=== PATIENT | female | born 1955 | race Caucasian/White ===

== ENCOUNTER → 2017-10-14 | Outpatient (CLI) | payer BC, OTHER ==
[~2017-10-14] MED LIST: DIPH25TA24 PO; IBUP-103 PO; LISI20TA3 PO; LORA-741 PO; MULTTAB58 PO; ROPI0.5T15 PO
[2017-10-14 12:28] LABS: BASO % 0.5 %; BASO ABS # 0.05 K/uL (0-0.2); COMPLETE YES; HEMATOCRIT 42.1 % (37-47); IG% 0.2 %; LYMPH % 21.9 %; LYMPH ABS # 2.12 K/uL (1.2-3.4); MEAN CELL VOLUME 96.3 fL (80-100); MEAN CORPUSCULAR HEMOGLOBIN 32.3 pg (25-34); MEAN CORPUSCULAR HGB CONC 33.5 g/dl (32-36); MEAN PLATELET VOLUME 10.2 fL (7.4-10.4); MONO % 5.6 %; NEUT % 68.8 %; PLATELET COUNT 259 K/uL (130-400); RED BLOOD COUNT 4.37 M/uL (4.2-5.4); WHITE BLOOD COUNT 9.68 K/uL (4.8-10.8)
[2017-10-14 12:37] LABS: ALT/SGPT 39 U/L (12-78); AST/SGOT 20 U/L (15-37); BLOOD UREA NITROGEN 13 mg/dl (7-18); BUN/CREATININE RATIO 15.7 (10-20); CALCIUM 8.7 mg/dl (8.5-10.1); CARBON DIOXIDE 26 mmol/L (21-32); CHLORIDE 110 mmol/L (98-107); GLUCOSE 96 mg/dl (70-99); POTASSIUM 4.2 mmol/L (3.5-5.1); SODIUM 140 mmol/L (136-145)
[2017-10-14 12:48] LABS: ALB/GLOB RATIO 1.2 (0.9-2); ALKALINE PHOSPHATASE 100 U/L (45-117); CHOLESTEROL 166 mg/dl (0-200); CHOLESTEROL/HDL RATIO 3.5; HDL CHOLESTEROL 47 mg/dl; LDL CHOLESTEROL CALCULATED 84 mg/dl; TRIGLYCERIDES 177 mg/dl (0-150); VERY LOW DENSITY LIPOPROT CALC 35 mg/dl
== END | disposition home or self-care (01) ==
LOC: C.LABBFT 08:59
PROVIDERS: ATTEND Internal Medicine
DX: M34.1 CR(E)ST syndrome (principal); G25.81 Restless legs syndrome; Z13.6 Encounter for screening for cardiovascular disorders

== ENCOUNTER 2021-01-29 09:17 | Inpatient (IN) ==
--- NOTE | 2021-01-27 08:32 | Anesthesiology Consultation ---
Date of Service January 27, 2021 Assessment & Plan (1) Encounter for pre-operative examination: Chart Review Chart Review: Acceptable Risk for Surgery (pending Covid testing results ) and Patient NOT seen in Pre Admission Testing Per nursing assessment 01/23/21, patient denies any recent travel. No known Covid positive contacts or Covid related symptoms. No known Covid infection in the past 90 days. Per surgeon's office, patient will be getting Covid testing done 01/27/21= will await results. Seen by manager laboratory 12/03/2020 = seen for follow-up on rheumatoid arthritis and low back pain. Patient feels RA is generally okay. Biggest complaint is low back painhas been following with spine surgeon. Arthritis and scleroderma symptoms well controlled on methotrexate, Humira, Plaquenil. Patient scheduled for back surgery in the near future. 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 Surgical intervention anticipated for lumbar surgery on Tuesday. Follow-up in 3 months. Seen by PCP 12/05/2019= patient with severe lumbar back pain and right leg pain from lumbar spinal stenosis. Clinically stable. Reviewed preop labs, chest x- ray, EKG and echocardiogram which are stable and acceptable. Vitals are normal. " She is medically optimized and acceptable risk for the scheduled lumbar surgery." History Surgery Operation Date: 01/29/21 12:25 Proposed Procedures p L2-L5 Decompression and Fusion, Spinal Cord Monitoring - Arnold Roger, Height/Weight Height: 5 ft 2 in Weight: 53.07 kg Allergies Allergy/AdvReac Type Severity Reaction Status Date / Time gabapentin Allergy Unknown Feet Verified 01/23/21 10:48 swelling (with higher doses) grass pollen Allergy Unknown Hay fever Verified 01/23/21 10:48 mold Allergy Unknown Hay fever Verified 01/23/21 10:48 spironolactone Allergy Unknown Feet Verified 01/23/21 10:48 swelling Penicillins AdvReac Unknown Yeast Verified 01/23/21 10:48 infection Medications Home Medications Medication Instructions Recorded Confirmed Last Taken methotrexate sodium 10 mg PO WK 10/16/18 01/23/21 Unknown nifedipine 90 mg PO QAM 10/16/18 01/23/21 Unknown adalimumab 40 mg/0.4 mL 40 mg SQ Q14D ea 05/03/19 01/23/21 Unknown subcutaneous syringe kit calcium carbonate 600 mg calcium 600 mg PO QAM tab 05/03/19 01/23/21 Unknown (1,500 mg) tablet levocetirizine 5 mg tablet 5 mg PO HS 05/03/19 01/23/21 Unknown magnesium 250 mg tablet 250 mg PO BID tab 05/03/19 01/23/21 Unknown ascorbic acid (vitamin C) 1,000 mg 1 gm PO QAM tab 08/11/19 01/23/21 Unknown tablet folic acid 1 mg tablet 1 mg PO QAM tab 08/11/19 01/23/21 Unknown vitamin E succinate 400 unit tablet 400 units PO QAM tab 08/11/19 01/23/21 Unknown hydroxychloroquine 200 mg tablet 200 mg PO HS tab 12/13/19 01/23/21 Unknown albuterol sulfate 90 mcg/actuation 2 puffs INH Q6H PRN #8.5 gm 03/03/20 01/23/21 Unknown aerosol inhaler potassium chloride 10 mEq 10 meq PO QAM 03/28/20 01/23/21 Unknown capsule,extended release diclofenac sodium 75 mg 75 mg PO BID #60 tab 08/13/20 01/23/21 Unknown tablet,delayed release gabapentin 100 mg capsule 100 mg PO BID cap 08/26/20 01/23/21 Unknown cholecalciferol (vitamin D3) 2,000 units PO QAM 11/20/20 01/23/21 Unknown famotidine 40 mg PO HS 11/20/20 01/23/21 Unknown ferrous sulfate 325 mg PO QAM 11/20/20 01/23/21 Unknown fluoxetine 20 mg PO HS 11/20/20 01/23/21 Unknown multivitamin 1 tab PO QAM 11/20/20 01/23/21 Unknown pantoprazole [Protonix] 40 mg PO HS 11/20/20 01/23/21 Unknown lorazepam 1 mg tablet 1 mg PO BID #60 tab 12/05/20 01/23/21 Unknown ropinirole 0.25 mg tablet 0.75 mg PO DAILY 90 Days #270 tab 12/05/20 01/23/21 Unknown varenicline 0.5 mg (11)-1 mg (42) See Rx Instructions PO .COMPLEX 12/24/20 01/23/21 Unknown tablets in a dose pack PRN #53 ea hydrocodone 5 mg-acetaminophen 325 See Rx Instructions PO Q6H PRN #40 12/26/20 01/23/21 Unknown mg tablet tab varenicline 1 mg tablet 1 mg PO BID PRN #56 tab 01/26/21 Unknown Past Medical History Medical History Allergic rhinitis Anxiety Arthritis Asthma well controlled per pt Chronic obstructive pulmonary disease well controlled per pt > no inh CREST syndrome + raynaud's symptoms, follows with Dr. Bradly Ahuja ([place]) Degenerative disc disease Depression Endometriosis GERD (gastroesophageal reflux disease) Hypertension Lumbar spinal stenosis Restless leg syndrome Rheumatoid arthritis Scleroderma Scoliosis Past Family History Family History Mother Dementia Osteoporosis Sister Hypertension Father Myocardial infarction Diet age 50 secondary to myocardial infarction Other Medical history non-contributory Denies family history of Ovarian cancer Prostate cancer Breast cancer Colorectal cancer Past Surgical History Surgical History History of colonoscopy S/P correction of deviated nasal septum S/P tonsillectomy S/P total abdominal hysterectomy and bilateral salpingo-oophorectomy Social History Smoking Status: Former smoker tobacco type: cigarettes Smoking cigarettes per day: 10 cigs x day (tobacco use x 40 years) Do You Dip or Chew Tobacco: No Smoking End Date: 1.5 month ago Hx Alcohol Use: Yes Alcohol type: hard liquor alcohol intake frequency: 0-2 drinks per day Hx Substance Use: No substance use type: does not use Testing Laboratory Results Laboratory Tests 12/02/20 12/02/20 12/02/20 11:25 11:25 11:25 WBC 9.55 Hgb 13.9 Hct 41.3 Plt Count 258 PT 11.3 INR 1.1 APTT 25.4 Sodium 140 Potassium 3.8 Chloride 111 H Carbon Dioxide 26 BUN 14 Creatinine 0.87 Glucose 103 H 12/02/20= UA: trace protein, trace ketones, 20-30 urine epithel cells Electrocardiogram Date: 12/02/20 NSR at 70bpm. [place]. Septal infarct (cited on or before 05/21/2002 per tc operator review) Chest X-Ray Date: 12/02/20 FINDINGS: PA and lateral chest radiographs are compared to study dated 12/17/2019 and correlated with chest CT dated 12/28/2019. The PA views are degraded by patient rotation. The heart is mildly enlarged noting atherosclerotic calcification of the thoracic aorta. Chronic interstitial thickening is similar to previous. There is no airspace consolidation or pleural effusion. Mild scarring/atelectasis is noted at the lung bases. There is no pneumothorax. The skeletal structures are osteopenic. The skeletal structures are osteopenic. Degenerative change and scoliosis are noted in the thoracolumbar spine. IMPRESSION: Mild cardiac enlargement with no active disease in the chest. Echocardiogram Date: 12/08/20 EF: >70% RWMA: + none Other Findings: + diastolic dysfunction; no LVH Normal left ventricular size with hyperdynamic systolic function. Mild left atrial dilation. Mild MR. Normal estimated RVSP. Cervical Spine Date: 12/02/20 FINDINGS: Straightening of the cervical spine. There is 2 mm of anterolisthesis of C2 on C3. This is unchanged with flexion and extension. The C1-C2 interval is intact. Prevertebral soft tissues are maintained. No fractures identified. [id number] facet degenerative changes throughout the cervical spine. There is severe disc space narrowing from C4 through T1 and mild disc space narrowing at C3-C4. IMPRESSION: There is 2 mm of anterolisthesis of C2 on C3 which remains intact throughout flexion and extension. The C1-C2 interval is intact. Advanced degenerative changes within the cervical spine. No fractures. Report forwarded to PCP for continuity of care after PAT appt on 12/02/20.
[~2021-01-29 09:17] MED LIST changes: +CLINDAMYCIN 600 MG/54 ML BAG IV SCH; -DIPH25TA24 PO; -IBUP-103 PO; -LISI20TA3 PO; -LORA-741 PO; +LR 15ML/HR IV SCH; -MULTTAB58 PO; -ROPI0.5T15 PO
[2021-01-29] MEDS ORDERED: fentaNYL citrate 100 MCG/2 ML VIAL ONE ×2 (09:59→12:47)
[2021-01-29] MEDS ORDERED: MIDAZOLAM HCL 1 MG/ML 2ML VIAL ONE (09:59)
[2021-01-29] MEDS ORDERED: ATROPINE SULFATE 0.1 MG/ML 10ML SYR IV PRN (10:43)
[2021-01-29] MEDS ORDERED: ePHEDrine sulfate 50 MG/ML AMP IV PRN (10:43)
[2021-01-29] MEDS ORDERED: fentaNYL citrate 100 MCG/2 ML VIAL IV PRN (10:43)
[2021-01-29] MEDS ORDERED: HYDROmorphone INJ 2 MG/ML SYR/VIAL IV PRN (10:43)
[2021-01-29] MEDS ORDERED: ONDANSETRON INJ 2 MG/ML 2 ML VIAL IV PRN ×2 (10:43→16:05)
--- NOTE | 2021-01-29 11:32 | History & Physical Bridge Note ---
Date of Service January 29, 2021 History & Physical Bridge Note I have examined the patient, reviewed the History & Physical and in the interval since the performance of the History & Physical I have noted the following changes of clinical significance: no changes noted
--- NOTE | 2021-01-29 11:35 | History & Physical Report ---
Date of Service January 29, 2021 Assessment & Plan (1) Lumbar radiculopathy: Admission and Anticipated Discharge Date Admission Date: L2-L5 decompression fusion History of Present Illness Chief Complaint: Back and leg pain Primary Care Provider: Raffy Cash MD This is a 65-year-old female presents with car persistent back and leg pain. Failing course of nonoperative care she is here for surgical invention. Allergies Allergy/AdvReac Type Severity Reaction Status Date / Time gabapentin Allergy Unknown Feet Verified 01/29/21 09:49 swelling (with higher doses) grass pollen Allergy Unknown Hay fever Verified 01/29/21 09:49 mold Allergy Unknown Hay fever Verified 01/29/21 09:49 spironolactone Allergy Unknown Feet Verified 01/29/21 09:49 swelling Penicillins AdvReac Unknown Yeast Verified 01/29/21 09:49 infection Home Medications Medication Instructions Recorded Confirmed Type methotrexate sodium 10 mg PO WK 10/16/18 01/29/21 History nifedipine 90 mg PO QAM 10/16/18 01/29/21 History adalimumab 40 mg/0.4 mL 40 mg SQ Q14D ea 05/03/19 01/29/21 History subcutaneous syringe kit calcium carbonate 600 mg calcium 600 mg PO QAM tab 05/03/19 01/29/21 History (1,500 mg) tablet levocetirizine 5 mg tablet 5 mg PO HS 05/03/19 01/29/21 History magnesium 250 mg tablet 250 mg PO BID tab 05/03/19 01/29/21 History ascorbic acid (vitamin C) 1,000 mg 1 gm PO QAM tab 08/11/19 01/29/21 History tablet folic acid 1 mg tablet 1 mg PO QAM tab 08/11/19 01/29/21 History vitamin E succinate 400 unit tablet 400 units PO QAM tab 08/11/19 01/29/21 History hydroxychloroquine 200 mg tablet 200 mg PO HS tab 12/13/19 01/29/21 History albuterol sulfate 90 mcg/actuation 2 puffs INH Q6H PRN #8.5 gm 03/03/20 01/29/21 Rx aerosol inhaler potassium chloride 10 mEq 10 meq PO QAM 03/28/20 01/29/21 History capsule,extended release diclofenac sodium 75 mg 75 mg PO BID #60 tab 08/13/20 01/29/21 Rx tablet,delayed release gabapentin 100 mg capsule 100 mg PO BID cap 08/26/20 01/29/21 History cholecalciferol (vitamin D3) 2,000 units PO QAM 11/20/20 01/29/21 History famotidine 40 mg PO HS 11/20/20 01/29/21 History ferrous sulfate 325 mg PO QAM 11/20/20 01/29/21 History fluoxetine 20 mg PO HS 11/20/20 01/29/21 History multivitamin 1 tab PO QAM 11/20/20 01/29/21 History pantoprazole [Protonix] 40 mg PO HS 11/20/20 01/29/21 History lorazepam 1 mg tablet 1 mg PO BID #60 tab 12/05/20 01/29/21 Rx ropinirole 0.25 mg tablet 0.75 mg PO DAILY 90 Days #270 tab 12/05/20 01/29/21 Rx hydrocodone 5 mg-acetaminophen 325 See Rx Instructions PO Q6H PRN #40 12/26/20 01/29/21 Rx mg tablet tab Past Med/Surg History Medical History Allergic rhinitis Anxiety Arthritis Asthma well controlled per pt Chronic obstructive pulmonary disease well controlled per pt > no inh CREST syndrome + raynaud's symptoms, follows with Dr. Bradly Ahuja ([place]) Degenerative disc disease Depression Endometriosis GERD (gastroesophageal reflux disease) Hypertension Lumbar spinal stenosis Restless leg syndrome Rheumatoid arthritis Scleroderma Scoliosis Surgical History History of colonoscopy S/P correction of deviated nasal septum S/P tonsillectomy S/P total abdominal hysterectomy and bilateral salpingo-oophorectomy Family History Mother Dementia Osteoporosis Sister Hypertension Father Myocardial infarction Diet age 50 secondary to myocardial infarction Other Medical history non-contributory Denies family history of Ovarian cancer Prostate cancer Breast cancer Colorectal cancer Social History Smoking Status: Former smoker Age Started Using Tobacco: 19; packs per day: 0.5; Cigarettes Per Day: 10 cigs x day (tobacco use x 40 years); Smoking End Date: 1.5 month ago; Second Hand Exposure: No; Do You Dip or Chew Tobacco: No; Tobacco Cessation Education Requested by Patient: No Hx Alcohol Use: Yes Alcohol type: hard liquor Alcohol Intake Frequency Comment: 1-2 alcoholic beverages per day. Hx Substance Use: No Preferred Language: Afghan Communication Ability: Effective Visual Impairment: No Limitations Hearing Ability: Use of Hearing Aid Ship Pilot Dispatcher Required: No Beliefs That Will Affect Care: None marital status: Current Living Situation: Spouse current occupational status: employed current occupation: Working [employer] Other Information That Helps Us Care for You: No Feels Safe at Home: Yes Safety Concerns: Feels Safe At This Time Assistive Devices: Glasses and Hearing Aid - Bilateral Physical Exam Physical Exam: Patient is alert and oriented Heart regular rhythm Lungs clear to auscultation Results & Data ([facility]) Vital Signs (Past 12 Hours) Vital Signs Temp Pulse Resp BP Pulse Ox 01/29/21 10:08 36.9 C 77 20 122/75 99
[2021-01-29] MEDS ORDERED: BACITRACIN INJ 50,000 UNIT VIAL ONE (11:51)
[2021-01-29] MEDS ORDERED: BUPIVACAINE/EPINEPHRINE 0.5% MPF 1:200,000 30 ML VIAL ONE (11:51)
[2021-01-29] MEDS ORDERED: FLOSEAL HEMOSTATIC MATRIX 10ML TOP ONE (12:42)
[2021-01-29] MEDS ORDERED: NEOSTIGMINE METHYLSULFATE 1 MG/ML 10ML VIAL ONE (12:49)
[2021-01-29] MEDS ORDERED: PROPOFOL IV EMULSION 10 MG/ML 20 ML VIAL IV ONE (12:49)
[2021-01-29] MEDS ORDERED: DEXAMETHASONE SOD INJ 4 MG/ML VIAL ONE (12:49)
[2021-01-29] MEDS ORDERED: ONDANSETRON INJ 2 MG/ML 2 ML VIAL ONE (12:49)
[2021-01-29] MEDS ORDERED: PHENYLEPHRINE HCL 10 MG/ML VIAL ONE (12:49)
[2021-01-29] MEDS ORDERED: ROCURONIUM BROMIDE 10 MG/ML 5 ML VIAL IV ONE (12:49)
[2021-01-29] MEDS ORDERED: GLYCOPYRROLATE 0.2 MG/ML VIAL ONE (12:49)
[2021-01-29] MEDS ORDERED: LIDOCAINE HCL 2% 2 ML VIAL/AMP(20MG/ML) INFIL ONE (12:49)
[2021-01-29] MEDS ORDERED: HYDROmorphone INJ 2 MG/ML SYR/VIAL ONE (12:56)
[2021-01-29] MEDS ORDERED: ALBUMIN HUMAN 5% 12.5 GM/250 ML VIAL IV ONE (13:04)
--- NOTE | 2021-01-29 14:24 | Operative Report ---
Post Operative Report Pre & Post Diagnosis Operation Date: 01/29/21 10:35 Pre-Op Diagnosis: Spinal Stenosis, Lumbar Region with Neurogenic Claudication Post-Op Diagnosis: Spinal Stenosis, Lumbar Region with Neurogenic Claudication I identified the patient and participated in the time-out.: Yes Procedure Operation Date: 01/29/21 10:35 Actual Procedures #1 lumbar decompression with bilateral medial facetectomies and foraminotomies L2-3, L3-4 and L4-5 per #2 posterior spinal fusion L2-3 L3-4 L4-5. #3 placement posterior segmental instrumentation L2-L5. #4 interbody fusion L3-4 L4-5. #5 placement of peek cage 8 x 22 mm at L3-4 and 9 x 22 mm L4-5. #6 placement locally harvested morselized autograft in the posterior lateral gutters. #7 placement of I factor in the interbody space and posterior lateral gutters. Surgeon Arnold Roger, Jumpbasting Collar Baster Gabriella Mayo Estimated Blood Loss 250 Findings Consistent with Post-Op Diagnosis Specimens None Indications This is a 65-year-old female presents with above-mentioned diagnosis after failing course of nonoperative care is here for the above-mentioned procedure. Description of Procedure Patient was met with identified informed consent obtained. Patient was then taken to the operative suite underwent a patient placed in prone position Yariel table top Roman frame. All bony prominences well-padded eyes inspected to ensure no external pressure placed upon the. This point the lumbar spine was prepped and draped in a sterile fashion. Sharp dissection with assistance of Bovie cautery performed down to and exposing the lamina and transverse processes of L2-L3-L4 and L5 bilaterally from a caudal cephalad fashion complete laminectomy of L4 L3 and L2 was performed including bilateral medial facetectomies and foraminotomies as well as massive foraminal disc condition L4- 5 on the right. After complete decompression pedicle screws were placed L2 L3-L4-L5 bilaterally with assistance of fluoroscopy and by way of a transforaminal portion right complete discectomy of L4-5 was performed endplates curetted to subcortical bleeding bone and a 9 x 22 mm peek cage filled with I factor tapped in position. Then proceeded L3-L4 and again by way of a transforaminal portion right complete discectomy was performed endplates curetted to subcortically bone and an 8 x 22 mm peek cage filled with I factor tapped into position. Proper size rods were then placed locked in final position bilaterally. The transverse processes of L 2 L3-L4-L5 burred to subcortical bleeding bone. I factor combined with local autograft was placed in the posterior gutters. 15 round DIEGO drain inserted. Incision then closed with 1 Vicryl fascia 2-0 Vicryl subcutaneously and 4 Monocryl for final skin closure. Steri-Strip sterile dressings placed. Patient waken taken PACU stable condition. Please note spinal cord monitoring was utilized at the procedure no changes noted. Lastly Gabriella Mayo was present at the entire surgery involved the patient positioning complex portions of the surgery and final skin closure. I attest to the content of the Intraoperative Record and any orders documented therein. Any exceptions are noted below.
--- NOTE | 2021-01-29 14:45 | Fluoroscopy Report ---
INTRAOPERATIVE RADIOGRAPHS CLINICAL HISTORY: L2-L5 spinal fusion. Fluoroscopy time: 28 seconds. FINDINGS: 2 spot fluoroscopic views of the lumbar spine are presented. There has been discectomy at L 3-L4 and L4-L5 with laminectomy and posterior fusion from L2-L5. Interpedicular screws are present at all levels. The orthopedic hardware appears intact. IMPRESSION: Intraoperative images from lumbar spinal fusion surgery as above. Electronically signed by: Black Orozco M.D. 01/29/2021 2:44 PM
--- NOTE | 2021-01-29 16:03 | Anesthesiology Progress Note ---
Date of Service January 29, 2021 Anesthesia Post Procedure Vital Signs Vital Signs: Temp Pulse Pulse Resp BP Pulse Ox 01/29/21 15:50 36.8 C 73 20 106/61 95 01/29/21 15:40 75 16 100/57 L 97 01/29/21 15:30 73 14 100/60 97 01/29/21 15:20 71 16 103/57 L 97 01/29/21 15:10 76 20 114/66 96 01/29/21 15:00 78 16 115/68 96 01/29/21 14:50 79 20 119/80 96 01/29/21 14:45 36.3 C L 83 16 119/77 96 01/29/21 10:08 36.9 C 77 20 122/75 99 Pain Intensity Bilateral Medial Back: Pain Intensity: 2 Transfer of Care Handoff Completed per policy Notes Mental Status: alert / awake / arousable and participated in evaluation Patient Amnestic to Procedure: Yes Nausea / Vomiting: adequately controlled Pain: adequately controlled Airway Patency, RR, SpO2: stable & adequate BP & HR: stable & adequate Hydration State: stable & adequate Anesthetic Complications: no major complications apparent and Pt Satisfied with anesthetic care
[2021-01-29] MEDS ORDERED: HYDROmorphone INJ 0.5 MG/0.5 ML SYR IV PRN (16:05)
[2021-01-29] MEDS ORDERED: LORazepam 0.5 MG TAB PO PRN (16:05)
[2021-01-29] MEDS ORDERED: PROMETHAZINE HCL 12.5 MG in SODIUM CHLORIDE 0.9% 50 ML IV PRN (16:05)
[2021-01-29] MEDS ORDERED: DO NOT ADMINISTER FLU VACCINE PRN (16:05)
[2021-01-29] MEDS ORDERED: ACETAMINOPHEN 500 MG TAB PO PRN (16:05)
[2021-01-29] MEDS ORDERED: METOCLOPRAMIDE HCL INJ 5 MG/ML 2 ML VIAL IV PRN (16:05)
[2021-01-29] MEDS ORDERED: SOD PHOSPHATE/SOD BIPHOSPHATE ENEMA 132 ML BTL PR PRN (16:05)
[2021-01-29] MEDS ORDERED: MAGNESIUM HYDROXIDE SUSP 30 ML UDC PO PRN (16:05)
[2021-01-29] MEDS ORDERED: ALUMINUM/MAGNESIUM SUSP 30 ML UDC PO PRN (16:05)
[2021-01-29] MEDS ORDERED: DO NOT ADMINISTER PNEUMOCOCCAL VACCINE PRN (16:05)
[2021-01-29] MEDS ORDERED: diphenhydrAMINE Capsule 25 MG CAP PO PRN (16:05)
[2021-01-29] MEDS ORDERED: ONDANSETRON 4 MG OD TAB PO PRN (16:05)
[2021-01-29] MEDS ORDERED: ALBUTEROL HFA 8 GM INHALER INH PRN (16:05)
[2021-01-29] MEDS ORDERED: oxyCODONE HCL IR 5 MG TAB (IMMEDIATE RELEASE) PO PRN (16:05)
[2021-01-29] MEDS ORDERED: NALOXONE HCL 0.4 MG/1 ML VIAL/CARP IV PRN (16:05)
[2021-01-29] MEDS ORDERED: HYDROmorphone INJ 1 MG/ML SYRINGE IV PRN (16:05)
[2021-01-29] MEDS ORDERED: bisacodyL 10 MG SUPP PR PRN (16:05)
[2021-01-29] MEDS ORDERED: LORazepam 0.5 MG/1 ML VIAL IV PRN (16:05)
[2021-01-29] MEDS ORDERED: ACETAMINOPHEN 1,000 MG/100 ML VIAL IV PRN (16:05)
[2021-01-29] MEDS ORDERED: FAMOTIDINE 20 MG TAB PO PRN (16:05)
[2021-01-29] MEDS ORDERED: hydrOXYzine HCl 25 MG TAB PO PRN (16:05)
[2021-01-29] MEDS: LACTATED RINGER'S 1,000 ML IV SCH (17:01)
[2021-01-29] MEDS: KETOROLAC TROMETHAMINE 15 MG/ML VIAL IV SCH ×2 (17:29→22:56)
--- NOTE | 2021-01-29 17:57 | Hospitalist Progress Note ---
Date of Service January 29, 2021 Assessment & Plan (1) Lumbar spinal stenosis: Doing well postop, pain control, otherwise per orthopedics (2) Rheumatoid arthritis: Continue home meds (3) Connective tissue disease overlap syndrome: Continue home meds (4) Vitamin D deficiency disease: Continue vitamin D replacement, outpatient follow-up (5) Personal history of tobacco use: Shows no respiratory signs or symptoms at this time (6) Hypertension: Blood pressure good at this time, continue to follow (7) DVT prophylaxis: Per orthopedics (8) Discharge planning issues: Per Ortho, PT/OT eval and treat, her goal is to get back home Admission and Anticipated Discharge Date Admission Date: January 29, 2021 Subjective Overall feeling good postop. Does have some back soreness where the surgery was, but notes with a smile that her leg feels much better than it did. Notes that she was crawling up and down the steps for most of the last year, had failed physical therapy and injections, and really just wants to get her life back. Her goals are things such as planting garden, and walking her dog. Review of Systems Review of Systems: All systems reviewed & are unremarkable except as noted in HPI & below Physical Exam Physical Exam: General she is awake and alert pleasant no distress. HEENT normocephalic atraumatic mucous membranes moist. Breathing unlabored no accessory muscle use good effort. Skin shows no rashes no pallor or icterus. Neuro shows cranial nerves II through XII be grossly intact gross motor and sensory intact. Skin shows no rashes no pallor or icterus. Results & Data Results & Data ([facility]) Vital Signs (Past 12 Hours) Vital Signs Temp Pulse Pulse Pulse Pulse Resp BP 01/29/21 17:14 73 18 106/62 01/29/21 16:49 98.1 F 75 16 105/64 01/29/21 16:24 98.4 F 18 106/65 01/29/21 15:50 98.2 F 73 20 106/61 01/29/21 15:40 75 16 100/57 L 01/29/21 15:30 73 14 100/60 01/29/21 15:20 71 16 103/57 L 01/29/21 15:10 76 20 114/66 01/29/21 15:00 78 16 115/68 01/29/21 14:50 79 20 119/80 01/29/21 14:45 97.3 F L 83 16 119/77 01/29/21 10:08 98.4 F 77 20 122/75 Pulse Ox 01/29/21 17:14 100 01/29/21 16:49 95 01/29/21 16:24 93 01/29/21 15:50 95 01/29/21 15:40 97 01/29/21 15:30 97 01/29/21 15:20 97 01/29/21 15:10 96 01/29/21 15:00 96 01/29/21 14:50 96 01/29/21 14:45 96 01/29/21 10:08 99 PG Care Time/CCT Total # of Minutes Spent Total Time Spent with Patient: Total time spent is greater than 50% in coordination of care (as documented) at patient's floor/unit and/or counseling patient: Coding Level of Care Code 84323 Subseq Hosp Care Lvl 2 Diagnoses Lumbar spinal stenosis M48.061 Rheumatoid arthritis M06.9 Connective tissue disease overlap syndrome M35.8 Vitamin D deficiency disease E55.9 Personal history of tobacco use Z87.891 Hypertension I10 DVT prophylaxis Z29.9 Discharge planning issues Z02.9
[2021-01-29] MEDS: traMADol HCL 50 MG TABLET PO PRN (19:24)
[2021-01-29] MEDS: CLINDAMYCIN 600 MG in DEXTROSE 5% 50 ML IV SCH (21:25)
[2021-01-29] MEDS: LORazepam 1 MG TAB PO SCH (21:34)
[2021-01-29] MEDS: MAGNESIUM OXIDE 400 MG TAB PO SCH (22:51)
[2021-01-29] MEDS: FLUoxetine HCL 20 MG CAP PO SCH (22:52)
[2021-01-29] MEDS: HYDROXYCHLOROQUINE SULFATE 200 MG TAB PO SCH (22:53)
[2021-01-29] MEDS: GABAPENTIN 100 MG CAP PO SCH (22:53)
[2021-01-29] MEDS: CETIRIZINE HCL 10 MG TABLET PO SCH (22:53)
[2021-01-29] MEDS: DOCUSATE SODIUM/SENNA 50/8.6MG TAB PO SCH (22:54)
[2021-01-29] MEDS: PANTOprazole 40 MG TAB PO SCH (22:55)
[2021-01-29] MEDS: FAMOTIDINE 40 MG TABLET PO SCH (23:02)
[2021-01-30] MEDS: LACTATED RINGER'S 1,000 ML IV SCH (03:20)
[2021-01-30] MEDS: CLINDAMYCIN 600 MG in DEXTROSE 5% 50 ML IV SCH (04:14)
[2021-01-30] MEDS: traMADol HCL 50 MG TABLET PO PRN ×4 (04:15→21:14)
[2021-01-30] MEDS: KETOROLAC TROMETHAMINE 15 MG/ML VIAL IV SCH ×2 (04:17→11:15)
[2021-01-30] MEDS: POLYETHYLENE (MIRALAX) 17 GM PACK PO SCH ×4 (05:49→23:04)
[2021-01-30 06:29] LABS: Basophils # (auto) 0.01 K/uL (0-0.2); Basophils % (auto) 0.1 %; Hematocrit (blood only) 32.9 % (37-47); Hemoglobin 11.1 g/dL (12.0-16.0); Immature Granulocytes # (auto) 0.06 K/uL (0.00-0.02); Immature Granulocytes % (auto) 0.4 %; Lymphocytes # (auto) 1.43 K/uL (1.2-3.4); Lymphocytes % (auto) 8.4 %; Mean Corpuscular Hemoglobin 30.8 pg (25-34); Mean Corpuscular Hgb Conc 33.7 g/dL (32-36); Mean Corpuscular Volume 91.4 fL (80-100); Mean Platelet Volume 9.2 fL (7.4-10.4); Monocytes # (auto) 0.75 K/uL (0.11-0.59); Monocytes % (auto) 4.4 %; Neutrophils # (auto) 14.73 K/uL (1.4-6.5); Neutrophils % (auto) 86.7 %; Platelet Count 233 K/uL (130-400); RDW Coefficient of Variation 14.6 % (11.5-14.5); RDW Standard Deviation 48.4 fL (36.4-46.3); White Blood Count 16.98 K/uL (4.8-10.8)
[2021-01-30 07:06] LABS: Calcium 8.1 mg/dl (8.5-10.1); Creatinine Clr Calc Pharmacy 43.1 ml/min; Est GFR (African American) 66.1; Potassium 4.1 mmol/L (3.5-5.1)
[2021-01-30] MEDS: LORazepam 1 MG TAB PO SCH ×2 (09:01→20:12)
[2021-01-30] MEDS: CALCIUM CARBONATE 1250MG TAB PO SCH (09:03)
[2021-01-30] MEDS: FOLIC ACID 1 MG TAB PO SCH (09:03)
[2021-01-30] MEDS: NIFEdipine EXTENDED REL 30 MG TABCR PO SCH (09:03)
[2021-01-30] MEDS: TOCOPHERYL, DL-ALPHA 400 UNITS CAP PO SCH (09:03)
[2021-01-30] MEDS: CHOLECALCIFEROL 1,000 UNITS 25 MCG TAB PO SCH (09:03)
[2021-01-30] MEDS: POTASSIUM CHLORIDE 10 MEQ TABCR PO SCH (09:03)
[2021-01-30] MEDS: FERROUS SULFATE 325 MG TAB PO SCH (09:03)
[2021-01-30] MEDS: MAGNESIUM OXIDE 400 MG TAB PO SCH ×2 (09:03→20:16)
[2021-01-30] MEDS: MULTIVITAMIN TAB PO SCH (09:03)
[2021-01-30] MEDS: GABAPENTIN 100 MG CAP PO SCH ×2 (09:04→20:15)
[2021-01-30] MEDS: rOPINIRole HCL 0.25 MG TABLET PO SCH (09:04)
[2021-01-30] MEDS: ASCORBIC ACID 500 MG TAB PO SCH (09:13)
--- NOTE | 2021-01-30 10:08 | Orthopedic Progress Note ---
Date of Service January 30, 2021 Assessment & Plan (1) Lumbar spinal stenosis: Admission and Anticipated Discharge Date Admission Date: January 29, 2021 This time we will continue physical therapy monitor DIEGO operatively discharge home this weekend. Subjective Back pain controlled leg pain markedly improved. Physical Exam Physical Exam: Patient has good strength testing peers comfortable. Results & Data ([facility]) Vital Signs (Past 12 Hours) Vital Signs Temp Pulse Resp BP Pulse Ox 01/30/21 07:34 37 C 72 16 131/73 98 01/30/21 03:45 36.7 C 74 16 131/77 97 01/29/21 23:18 36.6 C 67 16 121/65 97
--- NOTE | 2021-01-30 13:44 | Communication Note ---
Date of Service: January 30, 2021 chart reviewed, orthopedics input noted. pt sleeping and appearing to be resting comfortably when i enter the room. given medical stability, allowed her to rest vitals noted nad heent nc at mmm breathing unlabored no accessory muscles good effort skin no pallor rheumatologic diseases - stable, continue home meds. leukocytosis/acute blood loss anemia - both expected given circumstances and surgery medical team will be available if needed, but will sign off on active follow up at this time since she appears quite medically stable
[2021-01-30] MEDS: DOCUSATE SODIUM/SENNA 50/8.6MG TAB PO SCH (20:14)
[2021-01-30] MEDS: HYDROXYCHLOROQUINE SULFATE 200 MG TAB PO SCH (20:14)
[2021-01-30] MEDS: CETIRIZINE HCL 10 MG TABLET PO SCH (20:15)
[2021-01-30] MEDS: FLUoxetine HCL 20 MG CAP PO SCH (20:16)
[2021-01-30] MEDS: PANTOprazole 40 MG TAB PO SCH (20:17)
[2021-01-30] MEDS: FAMOTIDINE 40 MG TABLET PO SCH (20:18)
[2021-01-31] MEDS: traMADol HCL 50 MG TABLET PO PRN ×5 (00:59→20:26)
[2021-01-31] MEDS: POLYETHYLENE (MIRALAX) 17 GM PACK PO SCH ×4 (06:22→23:33)
--- NOTE | 2021-01-31 08:02 | Orthopedic Progress Note ---
Date of Service January 31, 2021 Assessment & Plan (1) Lumbar spinal stenosis: We will continue with pain control. Maintain DIEGO drain. DVT prophylaxis is in the form of teds and SCDs. Continue with ambulation and physical therapy. Anticipate discharge home tomorrow. Admission and Anticipated Discharge Date Admission Date: January 29, 2021 Supervising Physician Co-Signing Physician Notes Dr. Arnold Roger Simi Laughlin is postoperative day 2 L2-L5 decompression fusion. Having a bit more discomfort today. No radicular leg pain. She is passing flatus. No bowel movement. DIEGO drain output last shift was 90 cc. Yesterday in physical therapy ambulating roughly 300 feet. No new complaints. Review of Systems Review of Systems: All systems reviewed & are unremarkable except as noted in HPI & below Physical Exam Physical Exam: Alert and oriented x3. No acute distress. Lumbar dressing is clean dry and intact. DIEGO drain intact and functioning. Calf soft nontender bilaterally. Strength is 5 5 bilateral EHL, dorsiflexion, plantarflexion, quadriceps, hamstrings. Constitutional: WD/WN, vitals as above Eyes: normal visual ritter by confrontation ENMT: external ear and nose normal, oropharynx normal Neck: normal visual inspection Respiratory: normal respiratory effort Cardiovascular: Extremities: normal capillary refill Chest (Breasts): Chest: normal inspection of chest Gastrointestinal (Abdomen): Inspection/Auscultation: abdomen normal to inspection Musculoskeletal: no cyanosis or clubbing, extremities motor strength 5/5 Extremities: extremities normal to inspection and strength 5/5 throughout Skin: no rashes, warm and dry Neurologic: normal touch/pain/proprioception and moves all extremities Psychiatric: A+Ox3, euthymic affect Results & Data ([facility]) Vital Signs (Past 12 Hours) Vital Signs Temp Pulse Resp BP Pulse Ox 01/31/21 06:27 36.7 C 80 16 126/83 93 01/30/21 22:30 37.2 C 85 16 125/71 95
[2021-01-31] MEDS: LORazepam 1 MG TAB PO SCH ×2 (08:06→20:21)
[2021-01-31] MEDS: TOCOPHERYL, DL-ALPHA 400 UNITS CAP PO SCH (08:06)
[2021-01-31] MEDS: rOPINIRole HCL 0.25 MG TABLET PO SCH (08:07)
[2021-01-31] MEDS: CALCIUM CARBONATE 1250MG TAB PO SCH (08:07)
[2021-01-31] MEDS: CHOLECALCIFEROL 1,000 UNITS 25 MCG TAB PO SCH (08:07)
[2021-01-31] MEDS: MULTIVITAMIN TAB PO SCH (08:07)
[2021-01-31] MEDS: NIFEdipine EXTENDED REL 30 MG TABCR PO SCH (08:07)
[2021-01-31] MEDS: GABAPENTIN 100 MG CAP PO SCH ×2 (08:07→20:25)
[2021-01-31] MEDS: MAGNESIUM OXIDE 400 MG TAB PO SCH ×2 (08:07→20:23)
[2021-01-31] MEDS: ASCORBIC ACID 500 MG TAB PO SCH (08:07)
[2021-01-31] MEDS: FOLIC ACID 1 MG TAB PO SCH (08:08)
[2021-01-31] MEDS: FERROUS SULFATE 325 MG TAB PO SCH (08:08)
[2021-01-31] MEDS: dexAMETHasone 8 MG in SYRINGE 0 ML IV SCH (08:08)
[2021-01-31] MEDS: POTASSIUM CHLORIDE 10 MEQ TABCR PO SCH (08:08)
[2021-01-31] MEDS: CETIRIZINE HCL 10 MG TABLET PO SCH (20:23)
[2021-01-31] MEDS: PANTOprazole 40 MG TAB PO SCH (20:24)
[2021-01-31] MEDS: DOCUSATE SODIUM/SENNA 50/8.6MG TAB PO SCH (20:24)
[2021-01-31] MEDS: FLUoxetine HCL 20 MG CAP PO SCH (20:25)
[2021-01-31] MEDS: HYDROXYCHLOROQUINE SULFATE 200 MG TAB PO SCH (20:25)
[2021-01-31] MEDS: FAMOTIDINE 40 MG TABLET PO SCH (20:27)
[2021-02-01] MEDS: traMADol HCL 50 MG TABLET PO PRN ×2 (03:10→08:07)
[2021-02-01] MEDS: POLYETHYLENE (MIRALAX) 17 GM PACK PO SCH ×2 (05:18→12:36)
[2021-02-01] MEDS: LORazepam 1 MG TAB PO SCH (08:49)
[2021-02-01] MEDS: dexAMETHasone 8 MG in SYRINGE 0 ML IV SCH (08:49)
[2021-02-01] MEDS: CALCIUM CARBONATE 1250MG TAB PO SCH (08:49)
[2021-02-01] MEDS: NIFEdipine EXTENDED REL 30 MG TABCR PO SCH (08:50)
[2021-02-01] MEDS: TOCOPHERYL, DL-ALPHA 400 UNITS CAP PO SCH (08:50)
[2021-02-01] MEDS: POTASSIUM CHLORIDE 10 MEQ TABCR PO SCH (08:50)
[2021-02-01] MEDS: GABAPENTIN 100 MG CAP PO SCH (08:50)
[2021-02-01] MEDS: rOPINIRole HCL 0.25 MG TABLET PO SCH (08:51)
[2021-02-01] MEDS: MULTIVITAMIN TAB PO SCH (08:51)
[2021-02-01] MEDS: FERROUS SULFATE 325 MG TAB PO SCH (08:51)
[2021-02-01] MEDS: ASCORBIC ACID 500 MG TAB PO SCH (08:51)
[2021-02-01] MEDS: CHOLECALCIFEROL 1,000 UNITS 25 MCG TAB PO SCH (08:51)
[2021-02-01] MEDS: FOLIC ACID 1 MG TAB PO SCH (08:51)
[2021-02-01] MEDS: MAGNESIUM OXIDE 400 MG TAB PO SCH (08:52)
--- NOTE | 2021-02-01 11:17 | Discharge Summary ---
Date of Service February 01, 2021 Admission HPI Per Admitting Provider This is a 65-year-old female presents with car persistent back and leg pain. Failing course of nonoperative care she is here for surgical invention. Principal Diagnosis Lumbar spinal stenosis with neurogenic claudication Discharge Data Allergies Allergy/AdvReac Type Severity Reaction Status Date / Time gabapentin Allergy Unknown Feet Verified 01/29/21 16:48 swelling (with higher doses) grass pollen Allergy Unknown Hay fever Verified 01/29/21 09:49 mold Allergy Unknown Hay fever Verified 01/29/21 09:49 spironolactone Allergy Unknown Feet Verified 01/29/21 09:49 swelling Penicillins AdvReac Unknown Yeast Verified 01/29/21 09:49 infection Consultations 01/29/21 16:05 Consult Hospitalist Routine Procedures Performed Operation Date: 01/29/21 10:35 Actual Procedures p L2-L5 Decompression and Fusion, Interbody Cage L3-L4 and L4-L5; Spinal Cord Monitoring - Arnold Roger DO Ordered Studies 01/29/21 10:35 FL fluoroscopy <1hr Routine FL lumbar spine 2-3V Routine Hospital Course (1) Lumbar radiculopathy: Patient with lumbar decompression fusion tolerated this well was taken to orthopedic for physical. Postop day 1 she was up and limiting progressive postop day #2 postop day 3 DIEGO drain decreased probably. Pain well controlled. Strength intact. Subsequent discharge home. Discharge orders instructions from the chart for further review. Total Time Total Time Spent Total Time Spent (In Minutes): 20 minutes Discharge Plan Discharge Items Patient Disposition: Home - Self-Care Reason For Visit: Spinal Stenosis, Lumbar Region with Neurogenic Cla Discharge Diagnosis: Lumbar spinal stenosis with neurogenic claudication Activity: As commented below Non-emergency contact: Primary Care Provider Call non-emergency contact if: you have any medication questions Follow-up/Referrals: Jeffrey Cash MD [Primary Care Provider] - Diet: Regular Addtl Attending Provider Instructions: ACTIVITY RECOMMENDATIONS: SELF CARE INSTRUCTIONS AFTER THORACIC/LUMBAR FUSIONS 1. You may walk to your tolerance. It is good exercise for your legs and back. Expect some back and intermittent leg aches and pains. 2. You may perform "counter-top" level activities (make a sandwich, radha with a project, etc.). 3. No bending or lifting of more than 10 pounds or back twisting of any nature (roll like a log when turning in bed). 4. You may ride in a car for 20-30 minutes at a time. No driving until after your first visit with your doctor. 5. Frequent changes of position and restricting sitting to 30 minutes at a time will help limit the amount of back spasms and stiffness you may experience. 6. You may discontinue the use of ambulatory aids (cane, crutches, etc.) once your strength and confidence allow. 7. You may sports administrator the shower and let water strike your incision when you arrive home at least once daily. Do not take a tub bath, sit in a hot tub or go into a swimming pool until after your first recheck in the office. SPECIAL CARE INSTRUCTIONS: VERY IMPORTANT TO READ AND REVIEW A. Your surgical incision has been closed with a cosmetic suture under the skin that will dissolve in about 6 weeks. In 14 days, you can use a pair of clean scissors and cut the suture that is left outside of the skin at the ends of your incision. 1. The small skin tapes can be removed 7 days after surgery if they have not fallen off by that point. 2. You may keep the wound open to air as much as possible to promote healing after post-op day number 5 unless told otherwise by your doctor. 3. If you think the wound looks like it is becoming infected (redness or worsening drainage) and/or you are experiencing fever, chill or worsening back pain and muscle spasms, contact the office so that we may e valuate you as soon as possible. B. Complications are uncommon, but please contact us if you have any signs or symptoms of: 1. wound infection (fever higher than 102.5 degrees F, redness, separation of wound, drainage, or increasing pain from the incision) 2. blood clots in legs (pain, swelling, redness and warmth in legs) 3. urinary tract infection (fever higher than 102.5 degrees F, burning upon urination or increased frequency of urination) 4. nerve problems (inability to walk on your toes or heels, numbness, loss of bowel or bladder control) 5. any other symptoms that concern you C. Please call the office at if you have any concerns or questions about your operation or recovery. D. No smoking! Smoking drastically decreases the chance of a solid fusion. E. Do not take any anti-inflammatory medications (Indocin, Advil, Motrin, Aspirin, Naprosyn, etc.) as these may inhibit the chance of a solid fusion. Tylenol is okay to take for pain. MANAGING PAIN AFTER SPINAL SURGERY 1. Narcotic medication is intended for short-term use and will be provided for surgical pain. Surgical pain usually lasts for a period of 4-6 weeks. Narcotic medication includes Percocet, Vicodin, Darvocet, Tylenol #3 or Lortab. 2. Longer-term pain is more appropriately treated with non-narcotic medication such as Tylenol ES. 3. Muscle spasm is not appropriately treated with narcotics. Muscle relaxers such as Soma, Flexeril or Skelaxin can be used along with Tylenol ES. 4. Remember that we all live with some "aches and pains". This is not unusual or uncommon after an injury or as we get older. a. Back pain is expected and may include muscle spasms for 4 to 6 weeks after surgery. The pain should gradually improve. If the pain worsens for no apparent reason, please contact the office. b. Intermittent leg pain may also be experienced and should not be concerned about unless it worsens for no apparent reason. If so, please contact the office. 5. We will provide appropriate medication within the normal guidelines of their prescribed use. We will also be very cautious and aware of potential abuse and extended duration of patients' medication needs. a. Pain medications are for your comfort and to assist with sleep and rest so that the tissue can heal. They are not provided in order to return to normal activity and should not be used through the day. To do so or worsening pain at night can result from ongoing tissue damage and development of tolerance to the prescribed medicine. 6. Please allow 2-3 days to process refills. Prescriptions will not be mailed but must be picked up at the office. FOLLOW UP VISIT: Keep your scheduled follow-up appointment. Any questions, please call the office at . Pending Studies at Discharge: No Stand-Alone Forms: [facility] [employer], Opioid Pain Management, Smoking Cessation Medications and DC Order Prescriptions: New tramadol 50 mg tablet 50 mg PO Q6H PRN (Reason: pain, moderate) Qty: 30 RF: 0 oxycodone 5 mg tablet 5 mg PO Q6H PRN (Reason: pain, severe) Qty: 30 RF: 0 Continued potassium chloride 10 mEq capsule, extended release 10 meq PO QAM RF: 0 gabapentin 100 mg capsule 100 mg PO BID RF: 0 albuterol sulfate [Ventolin HFA] 90 mcg/actuation HFA aerosol inhaler 2 puffs INH Q6H PRN (Reason: shortness of breath or wheezing) Qty: 8.5 RF: 5 diclofenac sodium 75 mg tablet,delayed release (DR/EC) 75 mg PO BID Qty: 60 RF: 0 calcium carbonate 600 mg calcium (1,500 mg) tablet 600 mg PO QAM RF: 0 Humira(CF) 40 mg/0.4 mL syringe kit 40 mg SQ Q14D RF: 0 levocetirizine [Xyzal] 5 mg tablet 5 mg PO HS RF: 0 magnesium 250 mg tablet 250 mg PO BID RF: 0 ascorbic acid (vitamin C) 1,000 mg tablet 1 gm PO QAM RF: 0 folic acid 1 mg tablet 1 mg PO QAM RF: 0 vitamin E succinate 400 unit tablet 400 units PO QAM RF: 0 ropinirole 0.25 mg tablet 0.75 mg PO DAILY 90 Days Qty: 270 RF: 3 lorazepam 1 mg tablet 1 mg PO BID Qty: 60 RF: 2 nifedipine 90 mg tablet extended release 90 mg PO QAM RF: 0 methotrexate sodium 2.5 mg tablet 10 mg PO WK RF: 0 hydroxychloroquine 200 mg tablet 200 mg PO HS RF: 0 cholecalciferol (vitamin D3) 2,000 unit tablet 2,000 units PO QAM RF: 0 famotidine 40 mg tablet 40 mg PO HS RF: 0 pantoprazole [Protonix] 40 mg tablet,delayed release (DR/EC) 40 mg PO HS RF: 0 ferrous sulfate 325 mg (65 mg iron) tablet 325 mg PO QAM RF: 0 fluoxetine 20 mg tablet 20 mg PO HS RF: 0 multivitamin Tablet 1 tab PO QAM RF: 0 Discontinued hydrocodone-acetaminophen 5-325 mg tablet See Rx Instructions PO Q6H PRN (Reason: pain) Qty: 40 RF: 0 Discharge Orders: Discharge Order (Routine); Ordered 02/01/21 Ordered By: Arnold Winkler/Other Patient Handouts: Preventing Deep Vein Thrombosis Admission Data Admit Date/Time: 01/29/21 16:17 Attending Provider: Arnold Roger Admit Provider: Arnold Roger Primary Care Provider: Jeffrey Cash Other Providers: Reagan Meadows
== END 2021-02-01 14:36 | disposition home or self-care (01) | DRG 454 ==
LOC: ASU 09:17 → 3E 16:17

== ENCOUNTER 2021-04-05 09:32 | Inpatient (IN) ==
[2021-04-05] MEDS ORDERED: diphenhydrAMINE 50 MG/ML VIAL IV STA (10:01)
[2021-04-05] MEDS ORDERED: ONDANSETRON INJ 2 MG/ML 2 ML VIAL IV STA (10:01)
--- NOTE | 2021-04-05 10:08 | Emergency Department Note ---
Impression & Plan Acute dehydration, Hypokalemia, Hypomagnesemia, Diarrhea ED Provider Note NAME: BITA FRANKS AGE: 66 SEX: F : 1955 ARRIVES VIA: Walk-In INFORMANT: [Patient] ED PROVIDER(S): [Black Rubio MD] CHIEF COMPLAINT: Illness HISTORY OF PRESENT ILLNESS: The patient is a 66-year-old female who presents to the ER with 1 week of diarrhea and no appetite. She has not eaten anything or taken any medications in a week. She has a lot of nausea. No vomiting. Her diarrhea has been foul- smelling, loose and watery. No black or bloody stool. She has not had fever. No cough or congestion or shortness of breath. No sick contacts or bad food eaten. She is vaccinated for COVID-19. The patient states that she feels washed out and thirsty. She is concerned that she is dehydrated. The patient did try Chantix a bit ago to help stop smoking, she thought maybe this was causing her difficulty so she stopped the medication, she feels no different. Of note, the patient is immunocompromised. She takes several medications to reduce her immune response secondary to her rheumatoid arthritis. REVIEW OF SYSTEMS: See HPI for pertinent positives and negatives. A total of ten systems were reviewed and were otherwise negative. PMHx/PSHx: See Below SOCIAL HISTORY: See Below. PHYSICAL EXAM: GENERAL: Patient is in no acute distress. Frail. HEENT: No acute trauma, normocephalic atraumatic, mucous membranes dry, no nasal congestion, no scleral icterus. NECK: No stridor, no adenopathy, no meningismus, trachea is midline. LUNGS: Clear to auscultation bilaterally, no wheeze, no rhonchi, breath sounds equal. HEART: Without murmurs gallops or rubs, regular rate and rhythm. ABDOMEN: Soft, nontender, bowel sounds positive, no hernias, no peritonitis. EXTREMITIES: No cyanosis or edema, full range of motion of all the joints without pain or difficulty, no signs for acute trauma. NEUROLOGIC: Oriented x 3, no acute motor or sensory deficits, no focal weakness. SKIN: No rash, no jaundice, no diaphoresis. There is poor skin turgor. DIFFERENTIAL DIAGNOSIS: Infection, dehydration, metabolic abnormality, hypo/hyperglycemia, colitis, diverticulitis, foodborne or viral illness, malignancy, C. difficile colitis, bacterial intestinal infection, electrolyte disturbance, anemia, hypoxia, cardiac sources, toxicologic issues, as well as other pathologies. EMERGENCY DEPARTMENT COURSE/PROCEDURES: ECG: Indication was weakness. ECG shows a sinus rhythm with some PACs. There is an old anterior infarct. The rate is 85. The QTc is 509. LVH is present. No ST elevation. No PVCs. Continuous Cardiac Monitoring: An order was placed for continuous cardiac monitoring. The monitor shows a rate of 107 with sinus tachycardia. Critical Care Note: I have personally spent 52 minutes of critical care time in the direct management of this patient. This includes bedside care, interpretation of diagnostic studies, and testing, discussion with consultants, patient, and family members, and other required patient management activities. This 52 minutes is in excess of all separately billable procedures. MEDICAL DECISION MAKING: There is no leukocytosis or worrisome anemia. There is a normal platelet count. Renal panel testing shows some acute kidney injury with a creatinine of 1.26. Potassium was low at 3. Magnesium was critically low at 0.8. Lactic acid level was not elevated making sepsis less likely. No worrisome liver enzyme elevation. The patient appeared to be in a euthyroid state. ECG shows a sinus rhythm, no acute ischemia. Cardiac enzyme testing x1 is not consistent with acute cardiac injury. Stool C. difficile testing is negative. Stool cultures are pending. Covid testing is negative. Chest x-ray does not show pneumonia or CHF. Abdominal and pelvis CT shows a gastroenteritis/gastritis. There is no bowel obstruction, no diverticulitis or colitis noted. On exam, the patient appeared dehydrated. Patient received IV saline, she was given 1.5 L. She was given IV potassium, IV Zofran. She had a nicotine patch placed. She received IV Ativan. She received IV magnesium. She was given IV Benadryl and IV hydralazine. The IV hydralazine was given for a persistently high blood pressure. The patient did become slightly agitated during her stay, however, the Ativan seemed to work nicely. I do think the patient requires hospitalization. She is quite dehydrated. She has a critically low magnesium level. Her potassium is low, she has some acute kidney injury. She has not taken any of her medications in a week. She is in no condition for discharge home. I spoke to the patient and case management. The on-call hospitalist was consulted. At this point, the cause for her diarrhea is unclear. Past Med/Surg History Medical History Allergic rhinitis Anxiety Arthritis Asthma well controlled per pt Chronic obstructive pulmonary disease well controlled per pt > no inh CREST syndrome + raynaud's symptoms, follows with Dr. Bradly Ahuja ([place]) Degenerative disc disease Depression Endometriosis GERD (gastroesophageal reflux disease) Hypertension Lumbar spinal stenosis Restless leg syndrome Rheumatoid arthritis Scleroderma Scoliosis Surgical History History of colonoscopy S/P correction of deviated nasal septum S/P tonsillectomy S/P total abdominal hysterectomy and bilateral salpingo-oophorectomy Family History Mother Dementia Osteoporosis Sister Hypertension Father Myocardial infarction Diet age 50 secondary to myocardial infarction Other Medical history non-contributory Denies family history of Ovarian cancer Prostate cancer Breast cancer Colorectal cancer Social History Smoking Status: Current some day smoker Age Started Using Tobacco: 19; packs per day: 0.5; Cigarettes Per Day: 10 cigs x day (tobacco use x 40 years); Second Hand Exposure: No; Hx Alcohol Use: Yes Alcohol type: hard liquor Alcohol Intake Frequency Comment: 1-2 alcoholic beverages per day. Hx Substance Use: No Preferred Language: Spanish Communication Ability: Effective Visual Impairment: No Limitations Hearing Ability: Use of Hearing Aid Labor Relations Consultant Required: No Beliefs That Will Affect Care: None marital status: Current Living Situation: Spouse current occupational status: employed current occupation: Working for [employer] Feels Safe at Home: Yes Assistive Devices: Walker Allergies Allergies Allergy/AdvReac Type Severity Reaction Status Date / Time gabapentin Allergy Unknown Feet Verified 04/05/21 14:11 swelling (with higher doses) grass pollen Allergy Unknown Hay fever Verified 04/05/21 14:11 mold Allergy Unknown Hay fever Verified 04/05/21 14:11 spironolactone Allergy Unknown Feet Verified 04/05/21 14:11 swelling Penicillins AdvReac Unknown Yeast Verified 04/05/21 14:11 infection Home Meds Home Medications Medication Instructions Recorded Confirmed methotrexate sodium 10 mg PO WK 10/16/18 04/05/21 nifedipine 90 mg PO QAM 10/16/18 04/05/21 adalimumab 40 mg/0.4 mL 40 mg SQ Q14D ea 05/03/19 04/05/21 subcutaneous syringe kit calcium carbonate 600 mg calcium 600 mg PO QAM tab 05/03/19 04/05/21 (1,500 mg) tablet levocetirizine 5 mg tablet 5 mg PO HS 05/03/19 04/05/21 magnesium 250 mg tablet 250 mg PO BID tab 05/03/19 04/05/21 ascorbic acid (vitamin C) 1,000 mg 1 gm PO QAM tab 08/11/19 04/05/21 tablet folic acid 1 mg tablet 1 mg PO QAM tab 08/11/19 04/05/21 vitamin E succinate 400 unit tablet 400 units PO QAM tab 08/11/19 04/05/21 hydroxychloroquine 200 mg tablet 200 mg PO HS tab 12/13/19 04/05/21 potassium chloride 10 mEq 10 meq PO QAM 03/28/20 04/05/21 capsule,extended release gabapentin 100 mg capsule 100 mg PO BID cap 08/26/20 04/05/21 cholecalciferol (vitamin D3) 2,000 units PO QAM 11/20/20 04/05/21 famotidine 40 mg PO HS 11/20/20 04/05/21 ferrous sulfate 325 mg PO QAM 11/20/20 04/05/21 fluoxetine 20 mg PO HS 11/20/20 04/05/21 multivitamin 1 tab PO QAM 11/20/20 04/05/21 pantoprazole [Protonix] 40 mg PO HS 11/20/20 04/05/21 Previous Rx's Medication Instructions Recorded albuterol sulfate 90 mcg/actuation 2 puffs INH Q6H PRN #8.5 gm 03/03/20 aerosol inhaler ropinirole 0.25 mg tablet 0.75 mg PO DAILY 90 Days #270 tab 12/05/20 lorazepam 1 mg tablet 1 mg PO BID PRN #60 tab 02/23/21 valacyclovir 1 gram tablet 1,000 mg PO TID 7 Days #21 tab 02/23/21 Results & Data (ED) Vital Signs Vital Signs - 24 hr 04/05/21 09:35 04/05/21 09:48 04/05/21 09:53 Temperature 36.3 C L Temperature Source Temporal Artery Scan Pulse Rate 109 H 93 H 99 H Pulse Rate from SpO2 Sensor 89 90 Respiratory Rate 18 15 15 Respiratory Effort / Characteristics Non-Labored Respiratory Depth Normal Blood Pressure 143/85 H 120/89 Blood Pressure Mean 104 99 Pulse Oximetry 100 100 95 Oxygen Delivery Method Room Air Sepsis Recent Fever Within 48 Hours No Sepsis New/Unexplained Change in Mental Status No Sepsis Action Taken by Nursing No Action Required 04/05/21 10:00 04/05/21 10:30 04/05/21 11:00 Temperature Temperature Source Pulse Rate 93 H 90 88 Pulse Rate from SpO2 Sensor 96 H 93 H Respiratory Rate 15 13 16 Respiratory Effort / Characteristics Respiratory Depth Blood Pressure 134/105 H 149/89 H 175/107 H Blood Pressure Mean 114 109 129 Pulse Oximetry 100 100 Oxygen Delivery Method Sepsis Recent Fever Within 48 Hours Sepsis New/Unexplained Change in Mental Status Sepsis Action Taken by Nursing 04/05/21 11:30 04/05/21 12:00 04/05/21 12:30 Temperature Temperature Source Pulse Rate 92 H 90 88 Pulse Rate from SpO2 Sensor 92 H 87 Respiratory Rate 17 15 18 Respiratory Effort / Characteristics Respiratory Depth Blood Pressure 170/120 H 158/94 H 179/103 H Blood Pressure Mean 136 115 128 Pulse Oximetry 98 98 Oxygen Delivery Method Sepsis Recent Fever Within 48 Hours Sepsis New/Unexplained Change in Mental Status Sepsis Action Taken by Nursing 04/05/21 13:00 04/05/21 15:18 04/05/21 15:30 Temperature Temperature Source Pulse Rate 92 H 84 82 Pulse Rate from SpO2 Sensor 91 H 81 Respiratory Rate 19 18 19 Respiratory Effort / Characteristics Respiratory Depth Blood Pressure 178/102 H 171/88 H 182/97 H Blood Pressure Mean 127 115 125 Pulse Oximetry 100 100 Oxygen Delivery Method Sepsis Recent Fever Within 48 Hours Sepsis New/Unexplained Change in Mental Status Sepsis Action Taken by Nursing 04/05/21 16:00 04/05/21 16:30 04/05/21 16:31 Temperature Temperature Source Pulse Rate 88 93 H 94 H Pulse Rate from SpO2 Sensor 87 93 H 94 H Respiratory Rate 19 16 17 Respiratory Effort / Characteristics Respiratory Depth Blood Pressure 176/95 H 149/89 H Blood Pressure Mean 122 109 Pulse Oximetry 100 99 100 Oxygen Delivery Method Sepsis Recent Fever Within 48 Hours Sepsis New/Unexplained Change in Mental Status Sepsis Action Taken by Nursing 04/05/21 17:00 Temperature Temperature Source Pulse Rate 92 H Pulse Rate from SpO2 Sensor 90 Respiratory Rate 13 Respiratory Effort / Characteristics Respiratory Depth Blood Pressure Blood Pressure Mean Pulse Oximetry 100 Oxygen Delivery Method Sepsis Recent Fever Within 48 Hours Sepsis New/Unexplained Change in Mental Status Sepsis Action Taken by Prison Medications Current Medication List: was personally reviewed by me Laboratory Data Attestation: I reviewed the patient's lab results. Result diagrams: 04/05/21 10:15 04/05/21 10:15 Lab Results 04/05/21 04/05/21 04/05/21 Range/Units 10:15 10:15 10:15 WBC 9.74 (4.8-10.8) K/uL RBC 4.37 (4.2-5.4) M/uL Hgb 12.0 (12.0-16.0) g/dL Hct 36.1 L (37-47) % MCV 82.6 (80-100) fL MCH 27.5 (25-34) pg MCHC 33.2 (32-36) g/dL RDW Std Deviation 46.5 H (36.4-46.3) fL RDW Coeff of Chary 15.3 H (11.5-14.5) % Plt Count 294 (130-400) K/uL MPV 9.5 (7.4-10.4) fL Immature Gran % (Auto) 0.3 % Neut % (Auto) 77.8 % Lymph % (Auto) 12.8 % Davis % (Auto) 8.5 % Eos % (Auto) 0.0 % Baso % (Auto) 0.6 % Neut # (Auto) 7.57 H (1.4-6.5) K/uL Lymph # (Auto) 1.25 (1.2-3.4) K/uL Davis # (Auto) 0.83 H (0.11-0.59) K/uL Eos # (Auto) 0.00 (0-0.5) K/uL Baso # (Auto) 0.06 (0-0.2) K/uL Immature Gran # (Auto) 0.03 H (0.00-0.02) K/uL Sodium 142 (136-145) mmol/L Potassium 3.0 L (3.5-5.1) mmol/L Chloride 111 H (98-107) mmol/L Carbon Dioxide 19 L (21-32) mmol/L Anion Gap 12.0 H (3-11) BUN 15 (7-18) mg/dl Creatinine 1.26 H (0.6-1.2) mg/dl Est Cr Clr Drug Dosing Not Reportable Est GFR ( Amer) 51.4 ml/min Est GFR (Non-Af Amer) 44.4 ml/min BUN/Creatinine Ratio 11.5 (10-20) Glucose 71 (70-99) mg/dl Lactate 1.5 (0.4-2.0) mmol/L Calcium 7.9 L (8.5-10.1) mg/dl Phosphorus 3.9 (2.5-4.9) mg/dl Magnesium 0.8 L* (1.8-2.4) mg/dl Total Bilirubin 0.4 (0.2-1) mg/dl AST 31 (15-37) U/L ALT 39 (12-78) U/L Alkaline Phosphatase 102 (45-117) U/L Total Creatine Kinase 174 (26-192) U/L Troponin I 0.030 (0-0.045) ng/ml Total Protein 6.5 (6.4-8.2) gm/dl Albumin 2.9 L (3.4-5.0) gm/dl Globulin 3.6 (2.5-4.0) gm/dl Albumin/Globulin Ratio 0.8 L (0.9-2) TSH 1.220 (0.300-4.500) uIu/ml Stl C. diff Tox B Gene (Neg) COVID-19 Eval Order SARS-CoV-2 (PCR) (Negative) 04/05/21 04/05/21 04/05/21 Range/Units 11:40 11:40 15:15 WBC (4.8-10.8) K/uL RBC (4.2-5.4) M/uL Hgb (12.0-16.0) g/dL Hct (37-47) % MCV (80-100) fL MCH (25-34) pg MCHC (32-36) g/dL RDW Std Deviation (36.4-46.3) fL RDW Coeff of Chary (11.5-14.5) % Plt Count (130-400) K/uL MPV (7.4-10.4) fL Immature Gran % (Auto) % Neut % (Auto) % Lymph % (Auto) % Davis % (Auto) % Eos % (Auto) % Baso % (Auto) % Neut # (Auto) (1.4-6.5) K/uL Lymph # (Auto) (1.2-3.4) K/uL Davis # (Auto) (0.11-0.59) K/uL Eos # (Auto) (0-0.5) K/uL Baso # (Auto) (0-0.2) K/uL Immature Gran # (Auto) (0.00-0.02) K/uL Sodium (136-145) mmol/L Potassium (3.5-5.1) mmol/L Chloride (98-107) mmol/L Carbon Dioxide (21-32) mmol/L Anion Gap (3-11) BUN (7-18) mg/dl Creatinine (0.6-1.2) mg/dl Est Cr Clr Drug Dosing Est GFR ( Amer) ml/min Est GFR (Non-Af Amer) ml/min BUN/Creatinine Ratio (10-20) Glucose (70-99) mg/dl Lactate (0.4-2.0) mmol/L Calcium (8.5-10.1) mg/dl Phosphorus (2.5-4.9) mg/dl Magnesium (1.8-2.4) mg/dl Total Bilirubin (0.2-1) mg/dl AST (15-37) U/L ALT (12-78) U/L Alkaline Phosphatase (45-117) U/L Total Creatine Kinase (26-192) U/L Troponin I (0-0.045) ng/ml Total Protein (6.4-8.2) gm/dl Albumin (3.4-5.0) gm/dl Globulin (2.5-4.0) gm/dl Albumin/Globulin Ratio (0.9-2) TSH (0.300-4.500) uIu/ml Stl C. diff Tox B Gene Negative Cdiff Gene (Neg) COVID-19 Eval Order Covid19 at [facility] SARS-CoV-2 (PCR) NEGATIVE (Negative) Administered Medications Metronidazole (Flagyl) 500 mg in 100 mls @ 100 mls/hr IV NOW STA Stop: 04/05/21 17:43 Last Admin: 04/05/21 17:05 Dose: 100 mls/hr Documented by: [id number] Discontinued Medications Diphenhydramine HCl (Diphenhydramine 50 Mg/Ml Vial) 6.25 mg IV NOW STA Stop: 04/05/21 10:02 Last Admin: 04/05/21 10:48 Dose: 6.25 mg Documented by: [id number] Hydralazine HCl (Hydralazine Hcl 20 Mg/Ml Vial) 10 mg IV NOW STA Stop: 04/05/21 15:13 Last Admin: 04/05/21 15:28 Dose: 10 mg Documented by: [id number] Sodium Chloride (Nss 1000ml) 1,000 mls @ 999 mls/hr IV .Q1H1M EDWARDO Stop: 04/05/21 11:15 Last Infusion: 04/05/21 12:00 Dose: 0 mls/hr Documented by: [id number] Admin: 04/05/21 10:49 Dose: 999 mls/hr Documented by: [id number] Magnesium Sulfate/Dextrose (Magnesium Sulfate / D5w) 1 gm in 100 mls @ 100 mls/hr IV Q1H EDWARDO Stop: 04/05/21 13:16 Last Infusion: 04/05/21 14:25 Dose: 0 mls/hr Documented by: [id number] Admin: 04/05/21 13:20 Dose: 100 mls/hr Documented by: [id number] Infusion: 04/05/21 13:17 Dose: 0 mls/hr Documented by: [id number] Admin: 04/05/21 12:05 Dose: 100 mls/hr Documented by: [id number] Potassium Chloride (K Josh / Wtr) 10 meq in 100 mls @ 100 mls/hr IV ONE ONE Stop: 04/05/21 12:21 Last Infusion: 04/05/21 13:18 Dose: 0 mls/hr Documented by: [id number] Admin: 04/05/21 12:05 Dose: 100 mls/hr Documented by: [id number] Lorazepam (Ativan) 1 mg in 2 mls @ 2 mls/min IV NOW STA Stop: 04/05/21 11:51 Last Admin: 04/05/21 12:04 Dose: 2 mls/min Documented by: [id number] Sodium Chloride (Nss 1000ml) 500 mls @ 999 mls/hr IV .Q31M ONE Stop: 04/05/21 15:42 Last Admin: 04/05/21 15:28 Dose: 999 mls/hr Documented by: [id number] Ioversol (Optiray 320 100ml) 86 ml IV ONCE ONE Stop: 04/05/21 14:52 Last Admin: 04/05/21 14:52 Dose: 86 ml Documented by: [id number] Nicotine (Nicotine 21 Mg/24 Hr Tdsy) 21 mg TD NOW STA Stop: 04/05/21 11:51 Last Admin: 04/05/21 12:05 Dose: 21 mg Documented by: [id number] Ondansetron HCl (Ondansetron Inj 2 Mg/Ml 2 Ml Vial) 4 mg IV NOW STA Stop: 04/05/21 10:02 Last Admin: 04/05/21 10:50 Dose: 4 mg Documented by: [id number] Imaging Data Radiologist's Impression: Abdomen/Pelvis CT 04/05/21 10:[address] WITH IV AND ORAL CONTRAST CT DOSE: 230.48 mGy.cm HISTORY: weakness, weight loss, diarrhea TECHNIQUE: Multiaxial CT images of the abdomen and pelvis were performed following the use of intravenous and oral contrast. A dose lowering technique was utilized adhering to the principles of ALARA. COMPARISON STUDY: None. FINDINGS: Mild dependent changes seen at the lung bases. No pneumoperitoneum. No pneumatosis. Healing right lower anterior rib fractures. Nondisplaced fracture within the left L2 facet which demonstrates sclerotic edges. This is likely chronic from the posterior fusion. The right the right L4-L5 pedicle screws are predominantly lateral to the vertebral bodies likely secondary to the patient's scoliosis. There is posterior decompression and fusion from L2 through L5 with pedicle screws and rods. Mild periprosthetic lucency at the L5 pedicle screws favors loosening. Mild circumferential thickening of the distal esophagus. There is also diffuse thickening of the gastric folds. Slightly distended contrast filled loops of small bowel within the left side the abdomen. These measure up to 3 cm in diameter. These are likely distended from the contrast. There is no transition point to suggest an obstruction. Contrast extends into the colon. Fluid-filled colon. No bowel wall thickening. Normal appendix. The bladder is unremarkable. The uterus appears surgically absent. No pelvic free fluid. Hypodensity within segment IVb of the liver consistent with focal fat. No hepatic or splenic masses. The adrenal glands, pancreas, and kidneys appear unremarkable. No hydronephrosis. No retroperitoneal or pelvic lymphadenopathy. Mild calcified plaque within the normal caliber abdominal aorta. Subtle centimeter retroperitoneal lymph nodes do not meet CT criteria for pathologic involvement. The main portal vein is patent. The gallbladder is distended. No gallbladder wall thickening. Normal caliber common bile duct. IMPRESSION: 1. No evidence for bowel obstruction. 2. Fluid-filled colon. This is nonspecific but can be seen in the setting of a gastroenteritis. 3. Diffuse thickening of the gastric folds consistent with a gastritis. 4. Mild distal esophagitis. 5. The gallbladder is distended. No gallbladder wall thickening. 6. L2-L5 posterior decompression and fusion with pedicle screws and rods. There is an old nonunited left L2 facet fracture. 7. Healing right anterior lower rib fractures. ACT 112: Negative or not required by law. Electronically signed by: Alexis Hermosillo M.D. 04/05/2021 3:08 PM Chest X-Ray 04/05/21 10:01 XR chest 1V portable HISTORY: weakness COMPARISON: Chest 12/02/2020. FINDINGS: Rotated study. Old, healed left lower rib fracture. The lungs are clear. The heart is normal in size. No pleural effusions. No pneumothorax. Lungs appear hyperexpanded. Posterior fusion hardware within the lumbar spine. IMPRESSION: No acute process. ACT 112: Negative or not required by law. Electronically signed by: Alexis Hermosillo M.D. 04/05/2021 10:48 AM Discharge Plan Visit Data Chief Complaint: GI Assessment Stated Complaint: DIARRHEA/HASN'T EATEN SINCE TUESDAY ED Provider: Black Rubio Discharge Problem: Acute dehydration, Hypokalemia, Hypomagnesemia, Diarrhea Patient Disposition: Admitted As Inpatient Condition: Fair Forms Stand Alone Forms: [employer] Prescriptions Prescriptions: No Action potassium chloride 10 mEq capsule, extended release 10 meq PO QAM RF: 0 gabapentin 100 mg capsule 100 mg PO BID RF: 0 albuterol sulfate [Ventolin HFA] 90 mcg/actuation HFA aerosol inhaler 2 puffs INH Q6H PRN (Reason: shortness of breath or wheezing) Qty: 8.5 RF: 5 calcium carbonate 600 mg calcium (1,500 mg) tablet 600 mg PO QAM RF: 0 Humira(CF) 40 mg/0.4 mL syringe kit 40 mg SQ Q14D RF: 0 levocetirizine [Xyzal] 5 mg tablet 5 mg PO HS RF: 0 magnesium 250 mg tablet 250 mg PO BID RF: 0 ascorbic acid (vitamin C) 1,000 mg tablet 1 gm PO QAM RF: 0 folic acid 1 mg tablet 1 mg PO QAM RF: 0 vitamin E succinate 400 unit tablet 400 units PO QAM RF: 0 ropinirole 0.25 mg tablet 0.75 mg PO DAILY 90 Days Qty: 270 RF: 3 valacyclovir [Valtrex] 1 gram tablet 1,000 mg PO TID 7 Days Qty: 21 RF: 0 lorazepam 1 mg tablet 1 mg PO BID PRN (Reason: anxiety) Qty: 60 RF: 2 nifedipine 90 mg tablet extended release 90 mg PO QAM RF: 0 methotrexate sodium 2.5 mg tablet 10 mg PO WK RF: 0 hydroxychloroquine 200 mg tablet 200 mg PO HS RF: 0 cholecalciferol (vitamin D3) 2,000 unit tablet 2,000 units PO QAM RF: 0 famotidine 40 mg tablet 40 mg PO HS RF: 0 pantoprazole [Protonix] 40 mg tablet,delayed release (DR/EC) 40 mg PO HS RF: 0 ferrous sulfate 325 mg (65 mg iron) tablet 325 mg PO QAM RF: 0 fluoxetine 20 mg tablet 20 mg PO HS RF: 0 multivitamin Tablet 1 tab PO QAM RF: 0 Referrals Referrals: Jeffrey Cash MD [Primary Care Provider] - Discharge Problem: Diarrhea Qualifiers: Diarrhea type: unspecified type Qualified Code(s): R19.7 - Diarrhea, unspecified
[2021-04-05] MEDS ORDERED: SODIUM CHLORIDE 0.9% 1000ML 1,000 ML IV SCH (10:15)
[2021-04-05 10:44] LABS: Basophils # (auto) 0.06 K/uL (0-0.2); Basophils % (auto) 0.6 %; Hematocrit (blood only) 36.1 % (37-47); Immature Granulocytes # (auto) 0.03 K/uL (0.00-0.02); Immature Granulocytes % (auto) 0.3 %; Lymphocytes # (auto) 1.25 K/uL (1.2-3.4); Lymphocytes % (auto) 12.8 %; Mean Corpuscular Hemoglobin 27.5 pg (25-34); Mean Corpuscular Hgb Conc 33.2 g/dL (32-36); Mean Corpuscular Volume 82.6 fL (80-100); Mean Platelet Volume 9.5 fL (7.4-10.4); Monocytes # (auto) 0.83 K/uL (0.11-0.59); Monocytes % (auto) 8.5 %; Neutrophils # (auto) 7.57 K/uL (1.4-6.5); Neutrophils % (auto) 77.8 %; Platelet Count 294 K/uL (130-400); RDW Coefficient of Variation 15.3 % (11.5-14.5); RDW Standard Deviation 46.5 fL (36.4-46.3); Red Blood Count 4.37 M/uL (4.2-5.4); White Blood Count 9.74 K/uL (4.8-10.8)
--- NOTE | 2021-04-05 10:49 | XRay Report ---
XR chest 1V portable HISTORY: weakness COMPARISON: Chest 12/02/2020. FINDINGS: Rotated study. Old, healed left lower rib fracture. The lungs are clear. The heart is jake l in size. No pleural effusions. No pneumothorax. Lungs appear hyperexpanded. Posterior fusion hardwa re within the lumbar spine. IMPRESSION: No acute process. ACT 112: Negative or not required by law. Electronically signed by: Alexis Hermosillo M.D. 04/05/2021 10:48 AM
[2021-04-05 11:15] LABS: Alanine Aminotransferase 39 U/L (12-78); Albumin Globulin Ratio 0.8 (0.9-2); Albumin Level 2.9 gm/dl (3.4-5.0); Alkaline Phosphatase 102 U/L (45-117); Aspartate Aminotransferase 31 U/L (15-37); BUN Creatinine Ratio 11.5 (10-20); Bilirubin,Total 0.4 mg/dl (0.2-1); Blood Urea Nitrogen 15 mg/dl (7-18); Calcium 7.9 mg/dl (8.5-10.1); Carbon Dioxide 19 mmol/L (21-32); Chloride 111 mmol/L (98-107); Creatine Kinase 174 U/L (26-192); Est GFR (African American) 51.4 ml/min; Est GFR (Non-African American) 44.4 ml/min; Globulin 3.6 gm/dl (2.5-4.0); Glucose 71 mg/dl (70-99); Magnesium 0.8 mg/dl (1.8-2.4); Phosphorus 3.9 mg/dl (2.5-4.9); Sodium 142 mmol/L (136-145); Total Protein 6.5 gm/dl (6.4-8.2)
[2021-04-05] MEDS ORDERED: POTASSIUM CHLORIDE / WTR 10 MEQ/100 ML PLCT IV ONE (11:22)
[2021-04-05] MEDS ORDERED: LORazepam 1 MG/2 ML VIAL IV STA (11:50)
[2021-04-05] MEDS ORDERED: NICOTINE 21 MG/24 HR TDSY TD STA (11:50)
[2021-04-05] MEDS: MAGNESIUM SULFATE / D5W 1 GM/100 ML BAG IV SCH ×5 (12:05→23:00)
[2021-04-05] MEDS ORDERED: OPTIRAY 320 100ml IV ONE (14:51)
--- NOTE | 2021-04-05 15:09 | CT Scan Report ---
ABDOMEN AND PELVIS CT WITH IV AND ORAL CONTRAST CT DOSE: 230.48 mGy.cm HISTORY: weakness, weight loss, diarrhea TECHNIQUE: Multiaxial CT images of the abdomen and pelvis were performed following the use of intrave nous and oral contrast. A dose lowering technique was utilized adhering to the principles of ALARA. COMPARISON STUDY: None. FINDINGS: Mild dependent changes seen at the lung bases. No pneumoperitoneum. No pneumatosis. Healing right lower anterior rib fractures. Nondisplaced fracture within the left L2 facet which demonstrate s sclerotic edges. This is likely chronic from the posterior fusion. The right the right L4-L5 pedicl e screws are predominantly lateral to the vertebral bodies likely secondary to the patient's scoliosi s. There is posterior decompression and fusion from L2 through L5 with pedicle screws and rods. Mild periprosthetic lucency at the L5 pedicle screws favors loosening. Mild circumferential thickening of the distal esophagus. There is also diffuse thickening of the gastric folds. Slightly distended contr ast filled loops of small bowel within the left side the abdomen. These measure up to 3 cm in diamete r. These are likely distended from the contrast. There is no transition point to suggest an obstructi on. Contrast extends into the colon. Fluid-filled colon. No bowel wall thickening. Normal appendix. T he bladder is unremarkable. The uterus appears surgically absent. No pelvic free fluid. Hypodensity w ithin segment IVb of the liver consistent with focal fat. No hepatic or splenic masses. The adrenal g lands, pancreas, and kidneys appear unremarkable. No hydronephrosis. No retroperitoneal or pelvic lym phadenopathy. Mild calcified plaque within the normal caliber abdominal aorta. Subtle centimeter retr operitoneal lymph nodes do not meet CT criteria for pathologic involvement. The main portal vein is p atent. The gallbladder is distended. No gallbladder wall thickening. Normal caliber common bile duct. IMPRESSION: 1. No evidence for bowel obstruction. 2. Fluid-filled colon. This is nonspecific but can be seen in the setting of a gastroenteritis. 3. Diffuse thickening of the gastric folds consistent with a gastritis. 4. Mild distal esophagitis. 5. The gallbladder is distended. No gallbladder wall thickening. 6. L2-L5 posterior decompression and fusion with pedicle screws and rods. There is an old nonunited l eft L2 facet fracture. 7. Healing right anterior lower rib fractures. ACT 112: Negative or not required by law. Electronically signed by: Alexis Hermosillo M.D. 04/05/2021 3:08 PM
[2021-04-05] MEDS ORDERED: hydrALAZINE HCL 20 MG/ML VIAL IV STA (15:12)
[2021-04-05] MEDS ORDERED: SODIUM CHLORIDE 0.9% 1000ML 500 ML IV ONE (15:12)
[2021-04-05] MEDS ORDERED: metroNIDAZOLE 500 MG/100 ML BAG IV STA (16:44)
[2021-04-05] MEDS ORDERED: CIPROFLOXACIN / D5W 400 MG/200 ML BAG IV STA (16:44)
--- NOTE | 2021-04-05 17:54 | History & Physical Report ---
Date of Service April 05, 2021 Assessment & Plan (1) Gastroenteritis: (2) Diarrhea: (3) Acute dehydration: Acute dehydration in the setting of diarrhea and gastroenteritis. Poor PO intake over the past week. CT consistent with gastroenteritis. No other significant findings. EKG showing premature supraventricular complexes. Admit to telemetry/PCU. Recheck EKG x 2. Hold PO meds. Restart when able. Clear liquid diet. Stool sent for c-diff culture. Replace K and mag. Pepcid and Protonix ordered. CBC and BMP in AM. (4) Hypokalemia: Secondary to dehydration. Potassium 3.0 on admission. Will replace with 40meq this evening. Recheck in AM. (5) Hypomagnesemia: Secondary to dehydration. Magnesium of 0.8 on admission. Will supplement with 1gm x 4 this evening. Recheck in AM. (6) Herpes zoster: Recent Herpes Zoster of the right thigh in February. This has resolved with valacyclovir. (7) Rheumatoid arthritis: Follows with project administrator in [place]. Reports her RA was fairly well controlled. Autoimmune issues may be exacerbating length of gastroenteritis. Continue Humira injections q14 days. Resume methotrexate and hydroxyquine when able. (8) Scleroderma: Follows with rheumatology in [place]. (9) CREST syndrome: Follows with rheumatology in [place]. (10) Restless leg syndrome: Resume ropinirole when able. (11) GERD (gastroesophageal reflux disease): On oral Protonix 40mg daily. Will switch to IV while inpatient. Pepcid added as well in the setting of gastroenteritis. (12) Vitamin D deficiency disease: On vitamin D3 2,000 units at home. Resume when able. (13) Hypertension: BP of 182/97 on admission. Patient has not taken oral nifedipine for 1 week. Improved with IV hydralazine to 149/89. Continue IV hydralazine 10mg IV Q4 PRN for SBP >180 or DBP >100. Continue to monitor. Resume nifedipine when able. (14) DVT prophylaxis: SCDs. (15) Non healing left heel wound: Small left lateral heel wound on exam today. No odor or drainage present. Erythema and tenderness of the heel more concerning. Patient reports this has been present for 2 months and is painful. ? fissure from dry cracked skin vs a pressure ulcer. ? prolonged d/t autoimmune issues. Will check an XR. Wound to be dressed with Aquacel AG and an optifoam. Waffle boots ordered for offloading. PT/OT eval d/t difficulty moving today and recent spinal surgery. Patient walks with a cane. Disposition- PCU/telemetry Full code. History of Present Illness Chief Complaint: diarrhea Primary Care Provider: Raffy Cash MD 66 year old presents today with c/o diarrhea x 1 week. She is currently reports 6-8 BMs daily of liquid, foul smelling stool. She reports poor appetite, but no nausea or vomiting. She has not been able to take any oral medications for 1 week. She denies fever or chills. She is s/p spinal surgery with Dr. Roger on 01/29/21, and was to return to work tomorrow. She has not recently been on any antibiotics, but was previously prescribed valacyclovir for herpes zoster to the right thigh by primary care on 02/23/21. She reports all lesions have resolved. PMH includes a hx of rheumatoid arthritis, scleroderma, and CREST syndrome. She usually takes Humira, methotrexate, and hydroxychloroquine, but has not taken the methotrexate or hydroxychloroquine for the past week. She follows with a project administrator in [place], and reports her RA had been fairly well controlled. Other PMH includes a hx of restless leg syndrome, vit D deficiency, bronchitis, HTN, allergic rhinitis, GERD, endometriosis, and anxiety. Patient noted to have hypokalemia- 3.0, hypomagnesemia- 0.8, and an elevated Cr- 1.26 on admission. Patient also notes a left heel wound which has been present for approximately 2 months. She reports it occasionally drains, and the heel is painful. Allergies Allergy/AdvReac Type Severity Reaction Status Date / Time gabapentin Allergy Unknown Feet Verified 04/05/21 14:11 swelling (with higher doses) grass pollen Allergy Unknown Hay fever Verified 04/05/21 14:11 mold Allergy Unknown Hay fever Verified 04/05/21 14:11 spironolactone Allergy Unknown Feet Verified 04/05/21 14:11 swelling Penicillins AdvReac Unknown Yeast Verified 04/05/21 14:11 infection Home Medications Medication Instructions Recorded Confirmed Type methotrexate sodium 10 mg PO WK 10/16/18 04/05/21 History nifedipine 90 mg PO QAM 10/16/18 04/05/21 History adalimumab 40 mg/0.4 mL 40 mg SQ Q14D ea 05/03/19 04/05/21 History subcutaneous syringe kit calcium carbonate 600 mg calcium 600 mg PO QAM tab 05/03/19 04/05/21 History (1,500 mg) tablet levocetirizine 5 mg tablet 5 mg PO HS 05/03/19 04/05/21 History magnesium 250 mg tablet 250 mg PO BID tab 05/03/19 04/05/21 History ascorbic acid (vitamin C) 1,000 mg 1 gm PO QAM tab 08/11/19 04/05/21 History tablet folic acid 1 mg tablet 1 mg PO QAM tab 08/11/19 04/05/21 History vitamin E succinate 400 unit tablet 400 units PO QAM tab 08/11/19 04/05/21 History hydroxychloroquine 200 mg tablet 200 mg PO HS tab 12/13/19 04/05/21 History albuterol sulfate 90 mcg/actuation 2 puffs INH Q6H PRN #8.5 gm 03/03/20 04/05/21 Rx aerosol inhaler potassium chloride 10 mEq 10 meq PO QAM 03/28/20 04/05/21 History capsule,extended release gabapentin 100 mg capsule 100 mg PO BID cap 08/26/20 04/05/21 History cholecalciferol (vitamin D3) 2,000 units PO QAM 11/20/20 04/05/21 History famotidine 40 mg PO HS 11/20/20 04/05/21 History ferrous sulfate 325 mg PO QAM 11/20/20 04/05/21 History fluoxetine 20 mg PO HS 11/20/20 04/05/21 History multivitamin 1 tab PO QAM 11/20/20 04/05/21 History pantoprazole [Protonix] 40 mg PO HS 11/20/20 04/05/21 History ropinirole 0.25 mg tablet 0.75 mg PO DAILY 90 Days #270 tab 12/05/20 04/05/21 Rx lorazepam 1 mg tablet 1 mg PO BID PRN #60 tab 02/23/21 04/05/21 Rx valacyclovir 1 gram tablet 1,000 mg PO TID 7 Days #21 tab 02/23/21 04/05/21 Rx Past Med/Surg History Medical History Allergic rhinitis Anxiety Arthritis Asthma well controlled per pt Chronic obstructive pulmonary disease well controlled per pt > no inh CREST syndrome + raynaud's symptoms, follows with Dr. Bradly Ahuja ([place]) Degenerative disc disease Depression Endometriosis GERD (gastroesophageal reflux disease) Hypertension Lumbar spinal stenosis Restless leg syndrome Rheumatoid arthritis Scleroderma Scoliosis Surgical History History of colonoscopy S/P correction of deviated nasal septum S/P tonsillectomy S/P total abdominal hysterectomy and bilateral salpingo-oophorectomy Family History Mother Dementia Osteoporosis Sister Hypertension Father Myocardial infarction Diet age 50 secondary to myocardial infarction Other Medical history non-contributory Denies family history of Ovarian cancer Prostate cancer Breast cancer Colorectal cancer Social History Smoking Status: Current some day smoker Age Started Using Tobacco: 19; packs per day: 0.5; Cigarettes Per Day: 10 cigs x day (tobacco use x 40 years); Second Hand Exposure: No; Hx Alcohol Use: Yes Alcohol type: hard liquor Alcohol Intake Frequency Comment: 1-2 alcoholic beverages per day. Hx Substance Use: No Preferred Language: Citizen Of [place] Communication Ability: Effective Visual Impairment: No Limitations Hearing Ability: Use of Hearing Aid Stereo Equipment Salesperson Required: No Beliefs That Will Affect Care: None marital status: Current Living Situation: Spouse current occupational status: employed current occupation: Working for [employer] Feels Safe at Home: Yes Assistive Devices: Walker Review of Systems Constitutional: + weakness and + anorexia; no fever and no chills Eyes: no worsening vision Ear, Nose, Mouth, Throat: no dizziness Respiratory: no dyspnea Cardiovascular: no chest pain Gastrointestinal: + diarrhea/loose stools; no abdominal pain, no nausea and no vomiting Genitourinary: no dysuria Integumentary: + wounds (left heel wound x 2 months ) Psychiatric: no confusion Physical Exam Physical Exam: Temp Pulse Resp BP Pulse Ox 36.3 C L 92 H 13 149/89 H 100 04/05/21 09:35 04/05/21 17:00 04/05/21 17:00 04/05/21 16:31 04/05/21 17:00 Patient is afebrile. She was initially hypertensive at 182/97. This improved to 149/89 after hydralazine. Constitutional: + ill appearing and + thin ENMT: Ears: no hearing impairment Neck: trachea midline, no thyromegaly Respiratory: normal respiratory effort, lungs clear to auscultation Cardiovascular: RRR, no murmur, no edema Gastrointestinal (Abdomen): Inspection/Auscultation: normal bowel sounds Percussion/Palpation: abdomen soft; abdomen nontender Skin: + wound (left heel) Left lateral heel wound on exam. Small amount of eschar noted. No odor or drainage present. Periwound is erythematous. ? fissure vs related to pressure. Psychiatric: A+Ox3, euthymic affect Lymphatic: no cervical or axillary lymphadenopathy Results & Data Results & Data ([facility]) Vital Signs (Past 12 Hours) Vital Signs Temp Pulse Resp BP Pulse Ox 04/05/21 17:00 92 H 13 100 04/05/21 16:31 94 H 17 149/89 H 100 04/05/21 16:30 93 H 16 99 04/05/21 16:00 88 19 176/95 H 100 04/05/21 15:30 82 19 182/97 H 100 04/05/21 15:18 84 18 171/88 H 04/05/21 13:00 92 H 19 178/102 H 100 04/05/21 12:30 88 18 179/103 H 98 04/05/21 12:00 90 15 158/94 H 98 04/05/21 11:30 92 H 17 170/120 H 04/05/21 11:00 88 16 175/107 H 04/05/21 10:30 90 13 149/89 H 100 04/05/21 10:00 93 H 15 134/105 H 100 04/05/21 09:53 99 H 15 95 04/05/21 09:48 93 H 15 120/89 100 04/05/21 09:35 36.3 C L 109 H 18 143/85 H 100 Code Status & VTE Plan Code Status Full Code VTE Prophylaxis Plan VTE Prophylaxis will be ordered: Yes Supervising Physician Co-Signing Physician Notes I supervised SHANT Tilley on this admission. I interviewed and examined the patient independently of her. The plan is as written in her note except for any following changes/exceptions: None 66yo F w/ hx of autoimmune issues who presents with prolonged diarrheal illness resulting in mild kidney injury and electrolyte imbalance. Stool testing sent by the ER. She is feeling better already with IV fluids. Will follow stool tests and treat with Imodium if no positive C. diff or other bacterial illness. PG Care Time/CCT Total # of Minutes Spent Total Time Spent with Patient: Total time spent is greater than 50% in coordination of care (as documented) at patient's floor/unit and/or counseling patient: Coding Level of Care Code 66633 Initial Inpt Care Lvl 3 Medical Decision Making Moderate Complexity Diagnoses Gastroenteritis K52.9 Diarrhea R19.7 Diarrhea type: unspecified type Acute dehydration E86.0 Hypokalemia E87.6 Hypomagnesemia E83.42 Herpes zoster B02.9 Rheumatoid arthritis M06.9 Scleroderma M34.9 CREST syndrome M34.1 Restless leg syndrome G25.81 GERD (gastroesophageal reflux disease) K21.9 Vitamin D deficiency disease E55.9 Hypertension I10 DVT prophylaxis Z29.9 Non healing left heel wound S91.302A (1) Diarrhea Diarrhea type: unspecified type Qualified Code(s): R19.7 - Diarrhea, unspecified
[2021-04-05] MEDS ORDERED: ACETAMINOPHEN 325 MG TAB PO PRN (18:28)
[2021-04-05] MEDS ORDERED: ALUMINUM/MAGNESIUM SUSP 30 ML UDC PO PRN (18:28)
[2021-04-05] MEDS ORDERED: ALBUTEROL HFA 8 GM INHALER INH PRN (18:28)
[2021-04-05] MEDS ORDERED: hydrALAZINE HCL 20 MG/ML VIAL IV PRN (18:28)
[2021-04-05] MEDS ORDERED: ONDANSETRON INJ 2 MG/ML 2 ML VIAL IV PRN (18:28)
[2021-04-05 19:17] LABS: Appearance Urine Clear (Clear); Bacteria Urine Automated Negative (Negative); Bilirubin Urine Negative (Negative); Blood Urine Negative (Negative); Color Urine Yellow; Epithelial Cell Urine Auto >30 /lpf (0-5); Glucose Urine UA Negative (Negative); Ketones Urine Trace (Negative); Leukocyte Esterase Urine Trace (Negative); Nitrite Urine Negative (Negative); Protein Urine Negative (Negative); RBC Urine Automated 0-4 /hpf (0-4); Specific Gravity Urine 1.028 (1.000-1.030); Urobilinogen Urine Negative (Negative)
[2021-04-05] MEDS: POTASSIUM CHLORIDE 40 MEQ in D5W AND NSS 1,000 ML IV SCH (19:18)
[2021-04-05] MEDS: FAMOTIDINE 20 MG in SYRINGE 3 ML IV SCH (20:49)
[2021-04-05] MEDS ORDERED: PANTOprazole 40 MG in SYRINGE 0 ML IV SCH (21:00)
--- NOTE | 2021-04-05 23:43 | Electrocardiogram Report ---
Test Reason : Blood Pressure : / mmHG Vent. Rate : 085 BPM Atrial Rate : 085 BPM P-R Int : 130 ms QRS Dur : 090 ms QT Int : 428 ms P-R-T Axes : 080 072 078 degrees QTc Int : 509 ms Poor data quality, interpretation may be adversely affected Sinus rhythm with Premature supraventricular complexes Minimal voltage criteria for LVH, may be normal variant Anterior infarct (cited on or before 21-MAY-2002) Prolonged QT Abnormal ECG When compared with ECG of 02-DEC-2020 11:31, Premature supraventricular complexes are now Present Questionable change in initial forces of Anterior leads QT has lengthened Confirmed by Cheng Barber ([id number]) on 04/05/2021 11:42:32 PM Referred By: REFERRED SELF Confirmed By:Cheng Barber
[2021-04-06] MEDS ORDERED: MELATONIN 3 MG TAB PO PRN (01:06)
[2021-04-06] MEDS: MAGNESIUM SULFATE / D5W 1 GM/100 ML BAG IV SCH (01:10)
[2021-04-06] MEDS ORDERED: LORazepam 1 MG TAB PO PRN (01:12)
[2021-04-06] MEDS: POTASSIUM CHLORIDE 40 MEQ in D5W AND NSS 1,000 ML IV SCH (03:17)
--- NOTE | 2021-04-06 06:54 | XRay Report ---
XR ankle LT 2V CLINICAL HISTORY: Left ankle pain. Possible osteomyelitis. COMPARISON: None. DISCUSSION: No fractures or dislocations are visualized. No cortical destructive lesions are evident. IMPRESSION: 1. No acute fractures 2. No conventional radiographic evidence of osteomyelitis ACT 112: Negative or not required by law. Electronically signed by: Donny Garland M.D. 04/06/2021 6:52 AM
[2021-04-06 07:00] LABS: Hematocrit (blood only) 35.1 % (37-47); Hemoglobin 11.7 g/dL (12.0-16.0); Mean Corpuscular Hgb Conc 33.3 g/dL (32-36); Mean Platelet Volume 8.9 fL (7.4-10.4); Platelet Count 275 K/uL (130-400); RDW Coefficient of Variation 15.4 % (11.5-14.5); RDW Standard Deviation 47.5 fL (36.4-46.3); Red Blood Count 4.18 M/uL (4.2-5.4); White Blood Count 9.47 K/uL (4.8-10.8)
[2021-04-06 07:30] LABS: BUN Creatinine Ratio 6.8 (10-20); Calcium 7.5 mg/dl (8.5-10.1); Creatinine Clr Calc Pharmacy 47.3 ml/min; Est GFR (African American) 80.5 ml/min; Est GFR (Non-African American) 69.4 ml/min; Potassium 3.6 mmol/L (3.5-5.1)
[2021-04-06] MEDS: FAMOTIDINE 20 MG in SYRINGE 3 ML IV SCH (07:53)
[2021-04-06] MEDS ORDERED: PNEUMOCOCCAL Polysaccharide Vaccine 25mcg/0.5mL vial/Syr IM ONE (08:00)
[2021-04-06] MEDS ORDERED: NICOTINE 21 MG/24 HR TDSY TD PRN (09:00)
--- NOTE | 2021-04-06 14:29 | Electrocardiogram Report ---
Test Reason : Blood Pressure : / mmHG Vent. Rate : 077 BPM Atrial Rate : 077 BPM P-R Int : 148 ms QRS Dur : 084 ms QT Int : 418 ms P-R-T Axes : 087 065 078 degrees QTc Int : 473 ms Poor data quality, interpretation may be adversely affected Sinus rhythm with Premature atrial complexes Septal infarct (cited on or before 21-MAY-2002) Abnormal ECG When compared with ECG of 05-APR-2021 10:59, No significant change was found Confirmed by Casimiro Geller ([id number]) on 04/06/2021 2:28:27 PM Referred By: REFERRED SELF Confirmed By:Casimiro Geller
--- NOTE | 2021-04-07 07:16 | Discharge Summary ---
Date of Service April 06, 2021 Admission HPI Per Admitting Provider 66 year old presents today with c/o diarrhea x 1 week. She is currently reports 6-8 BMs daily of liquid, foul smelling stool. She reports poor appetite, but no nausea or vomiting. She has not been able to take any oral medications for 1 week. She denies fever or chills. She is s/p spinal surgery with Dr. Roger on 01/29/21, and was to return to work tomorrow. She has not recently been on any antibiotics, but was previously prescribed valacyclovir for herpes zoster to the right thigh by primary care on 02/23/21. She reports all lesions have resolved. PMH includes a hx of rheumatoid arthritis, scleroderma, and CREST syndrome. She usually takes Humira, methotrexate, and hydroxychloroquine, but has not taken the methotrexate or hydroxychloroquine for the past week. She follows with a sock turner in [place], and reports her RA had been fairly well controlled. Other PMH includes a hx of restless leg syndrome, vit D deficiency, bronchitis, HTN, allergic rhinitis, GERD, endometriosis, and anxiety. Patient noted to have hypokalemia- 3.0, hypomagnesemia- 0.8, and an elevated Cr- 1.26 on admission. Patient also notes a left heel wound which has been present for approximately 2 months. She reports it occasionally drains, and the heel is painful. Principal Diagnosis Likely viral gastroenteritis causing diarrhea and mild kidney injury Discharge Exam Constitutional WD/WN, vitals as above Eyes EOM intact bilaterally; no conjunctival abnormality ENMT external ear and nose normal, oropharynx normal Neck trachea midline, no thyromegaly normal visual inspection Respiratory normal respiratory effort, lungs clear to auscultation no respiratory distress Cardiovascular RRR, no murmur, no edema Gastrointestinal (Abdomen) Inspection/Auscultation: abdomen normal to inspection; abdomen not distended Musculoskeletal no cyanosis or clubbing, extremities motor strength 5/5 Skin no rashes, warm and dry + wound (Left heel) Neurologic moves all extremities and awake Psychiatric Orientation: alert, oriented to person and cooperative Discharge Data Allergies Allergy/AdvReac Type Severity Reaction Status Date / Time gabapentin Allergy Unknown Feet Verified 04/05/21 14:11 swelling (with higher doses) grass pollen Allergy Unknown Hay fever Verified 04/05/21 14:11 mold Allergy Unknown Hay fever Verified 04/05/21 14:11 spironolactone Allergy Unknown Feet Verified 04/05/21 14:11 swelling Penicillins AdvReac Unknown Yeast Verified 04/05/21 14:11 infection Consultations 04/05/21 15:22 ED Decision to Admit Stat Ordered Studies 04/05/21 10:01 CT abd pelvis oral and IV con Stat Hospital Course (1) Gastroenteritis: Likely viral in nature. C. diff and preliminary stool culture were negative. Likely prolonged due to her immunosuppression from RA/Crest meds. - Diarrhea was improving by discharge. Electrolyte imbalances, mild acute kidney injury, and dehydration had all resolved. - Counseled on BRAT diet, Imodium PRN, and to follow up with PCP if the diarrhea worsens or has any bloody BMs, etc. (2) Diarrhea: Acute in nature. Likely due to viral cause. - Resolving by discharge. (3) Non healing left heel wound: Left heel wound that she reports heals, then will crack open again. Looked possibly fungal in nature (tinea pedis) to me without indication of superimposed cellulitis. - Counseled bacitracin and OTC fungal cream to heal and hopefully prevent recurrence. All other medical issues stable and without change. Total Time Total Time Spent Total Time Spent (In Minutes): 35 Discharge Plan Discharge Items Patient Disposition: Home - Self-Care Reason For Visit: DEHYDRATION Discharge Diagnosis: GI illness, dehydration Condition on Discharge: Good Activity: Resume your previous activity Non-emergency contact: Primary Care Provider Call non-emergency contact if: your symptoms worsen Follow-up/Referrals: Jeffrey Cash MD [Primary Care Provider] - Diet: Regular Addtl Attending Provider Instructions: Ms. Spenser Glynn, You were admitted to the hospital with dehydration and some electrolyte imbalances due to a GI bug that had caused diarrhea for a week. Luckily, with some IV supplementation, your potassium and magnesium are back to normal. I would encourage you to eat a few bananas this week as they can help replenish the potassium and also help solidify your stool. We did testing to check for bacterial causes of your diarrhea and so far, these are negative. We do watch these for another few days and can notify you if anyth ing becomes positive. This means that (most likely), your diarrhea was caused by a virus which is the most common cause of GI illnesses. These usually resolve on their own, and your medications for your RA may have just caused the course to take longer than typical. By discharge, your diarrhea was resolving. Please start with a BRAT diet (Bananas, Rice, Applesauce, [place]) and advance your diet to more regular, higher-fiber foods gradually. Please see Dr. Cash if you have further diarrhea, worsening diarrhea, blood in the stool, fevers, or other concerning symptoms. For your left heel, this may be a fungal infection. Please use Bacitracin ointment and alternate with an [id number] antifungal cream such as clotrimazole. Pending Studies at Discharge: Yes Studies:: Finalized stool studies Stand-Alone Forms: My [facility] Pretty in my Pocket (PRIMP), Work/School Release, Smoking Cessation Medications and DC Order Prescriptions: Continued potassium chloride 10 mEq capsule, extended release 10 meq PO QAM RF: 0 gabapentin 100 mg capsule 100 mg PO BID RF: 0 albuterol sulfate [Ventolin HFA] 90 mcg/actuation HFA aerosol inhaler 2 puffs INH Q6H PRN (Reason: shortness of breath or wheezing) Qty: 8.5 RF: 5 calcium carbonate 600 mg calcium (1,500 mg) tablet 600 mg PO QAM RF: 0 Humira(CF) 40 mg/0.4 mL syringe kit 40 mg SQ Q14D RF: 0 levocetirizine [Xyzal] 5 mg tablet 5 mg PO HS RF: 0 magnesium 250 mg tablet 250 mg PO BID RF: 0 ascorbic acid (vitamin C) 1,000 mg tablet 1 gm PO QAM RF: 0 folic acid 1 mg tablet 1 mg PO QAM RF: 0 vitamin E succinate 400 unit tablet 400 units PO QAM RF: 0 ropinirole 0.25 mg tablet 0.75 mg PO DAILY 90 Days Qty: 270 RF: 3 lorazepam 1 mg tablet 1 mg PO BID PRN (Reason: anxiety) Qty: 60 RF: 2 nifedipine 90 mg tablet extended release 90 mg PO QAM RF: 0 methotrexate sodium 2.5 mg tablet 10 mg PO WK RF: 0 hydroxychloroquine 200 mg tablet 200 mg PO HS RF: 0 cholecalciferol (vitamin D3) 2,000 unit tablet 2,000 units PO QAM RF: 0 famotidine 40 mg tablet 40 mg PO HS RF: 0 pantoprazole [Protonix] 40 mg tablet,delayed release (DR/EC) 40 mg PO HS RF: 0 ferrous sulfate 325 mg (65 mg iron) tablet 325 mg PO QAM RF: 0 fluoxetine 20 mg tablet 20 mg PO HS RF: 0 multivitamin Tablet 1 tab PO QAM RF: 0 Discontinued valacyclovir [Valtrex] 1 gram tablet 1,000 mg PO TID 7 Days Qty: 21 RF: 0 Discharge Orders: Discharge Order (Routine); Ordered 04/06/21 Ordered By: Masood Winkler/Other Patient Handouts: ED Johnny Duckworth (Adult) Admission Data Admit Date/Time: 04/05/21 16:57 Attending Provider: Masood Weber Admit Provider: Masood Weber Primary Care Provider: Jeffrey Cash Other Providers: Masood Weber Other Interventions: Discharge Summary Assessment (RN) Last Done: 04/06/21 12:20 Coding Level of Care Code D/C Day Management >30 mins Diagnoses Gastroenteritis K52.9 Diarrhea R19.7 Diarrhea type: unspecified type Non healing left heel wound S91.302A
== END 2021-04-06 14:24 | disposition home or self-care (01) | DRG 392 ==
LOC: ED 09:32 → 2S 16:57

== ENCOUNTER 2021-10-02 10:44 | Inpatient (IN) ==
--- NOTE | 2021-10-02 11:14 | Emergency Department Note ---
History of Present Illness General Chief complaint: Weakness Stated complaint: DIFF. AMBULATING Time Seen by Provider: 10/02/21 11:06 History of Present Illness Provider complaint: Weakness difficulty ambulating Onset (ago): month(s) 8 Associated symptoms: + malaise and + weakness; no chest pain, no cough, no fever/chills, no headaches, no nausea/vomiting or no shortness of breath 66-year-old female presents emergency department for weakness and difficulty ambulating. Patient states that she had a back surgery done by Dr. Roger in [facility] and ever since then she has been having progressive weakness and difficulty ambulating. She states that over the last 3 days it has gotten progressively worse. She denies any falls. She denies any urinary continence. She denies any back pain she denies any numbness. Patient has any chest pain difficulty breathing abdominal pain or headaches. Patient states she was admitted to the hospital in May for electrolyte imbalance. Patient states she does have chronic diarrhea. No melena or hematochezia. Home Medications Medication Instructions Recorded Confirmed Type methotrexate sodium 2.5 mg tablet 10 mg PO WK 10/16/18 10/02/21 History nifedipine 90 mg tablet,extended 90 mg PO QAM 10/16/18 10/02/21 History release adalimumab 40 mg/0.4 mL 40 mg SQ Q14D ea 05/03/19 10/02/21 History subcutaneous syringe kit (Humira(CF)) calcium carbonate 600 mg calcium 600 mg PO QAM tab 05/03/19 10/02/21 History (1,500 mg) tablet levocetirizine 5 mg tablet (Xyzal) 5 mg PO HS 05/03/19 10/02/21 History ascorbic acid (vitamin C) 1,000 mg 1 gm PO QAM tab 08/11/19 10/02/21 History tablet folic acid 1 mg tablet 1 mg PO QAM tab 08/11/19 10/02/21 History vitamin E succinate 268 mg (400 400 units PO QAM tab 08/11/19 10/02/21 History unit) tablet hydroxychloroquine 200 mg tablet 200 mg PO HS tab 12/13/19 10/02/21 History cholecalciferol (vitamin D3) 50 2,000 units PO QAM 11/20/20 10/02/21 History mcg (2,000 unit) tablet famotidine 40 mg tablet 40 mg PO HS 11/20/20 10/02/21 History ferrous sulfate 325 mg (65 mg 325 mg PO QAM 11/20/20 10/02/21 History iron) tablet multivitamin 1 tab PO QAM 11/20/20 10/02/21 History fluconazole 150 mg tablet 150 mg PO Q48H 0 Days #2 tab 04/10/21 10/02/21 Rx promethazine 25 mg tablet 25 mg PO Q6H PRN #30 tab 04/10/21 10/02/21 Rx magnesium 250 mg tablet 250 mg PO BID #180 tab 04/16/21 10/02/21 Rx potassium chloride 10 mEq 10 meq PO QAM #90 cap 04/16/21 10/02/21 Rx capsule,extended release pantoprazole 40 mg tablet,delayed 40 mg PO HS #90 tab 08/10/21 10/02/21 Rx release (Protonix) ropinirole 0.25 mg tablet 0.75 mg PO DAILY 90 Days #270 tab 08/10/21 10/02/21 Rx fluoxetine 20 mg tablet 20 mg PO HS #30 tab 09/14/21 10/02/21 Rx lorazepam 1 mg tablet 1 mg PO BID PRN #60 tab 09/21/21 10/02/21 Rx Allergies Allergy/AdvReac Type Severity Reaction Status Date / Time gabapentin Allergy Unknown Feet Verified 10/02/21 12:58 swelling (with higher doses) grass pollen Allergy Unknown Hay fever Verified 10/02/21 12:58 mold Allergy Unknown Hay fever Verified 10/02/21 12:58 spironolactone Allergy Unknown Feet Verified 10/02/21 12:58 swelling Penicillins AdvReac Unknown Yeast Verified 10/02/21 12:58 infection Past Med/Surg History Medical History Allergic rhinitis Anxiety Arthritis Asthma well controlled per pt Chronic obstructive pulmonary disease well controlled per pt > no inh CREST syndrome + raynaud's symptoms, follows with Dr. Bradly Ahuja ([place]) Degenerative disc disease Depression Endometriosis GERD (gastroesophageal reflux disease) Hypertension Lumbar spinal stenosis Restless leg syndrome Rheumatoid arthritis Scleroderma Scoliosis Surgical History History of colonoscopy S/P correction of deviated nasal septum S/P tonsillectomy S/P total abdominal hysterectomy and bilateral salpingo-oophorectomy Family History Mother Dementia Osteoporosis Sister Hypertension Father Myocardial infarction Diet age 50 secondary to myocardial infarction Other Medical history non-contributory Denies family history of Ovarian cancer Prostate cancer Breast cancer Colorectal cancer Social History Smoking Status: Current every day smoker Age Started Using Tobacco: 19; packs per day: 0.5; Cigarettes Per Day: 3; Second Hand Exposure: No; Hx Alcohol Use: Yes Alcohol type: wine Alcohol Intake Frequency Comment: 1-2 alcoholic beverages per day. Hx Substance Use: No Preferred Language: Macedonian Communication Ability: Effective Visual Impairment: No Limitations Hearing Ability: Use of Hearing Aid Battery Inspector Required: Yes Beliefs That Will Affect Care: None marital status: Current Living Situation: Spouse current occupational status: employed current occupation: Working for [employer] Feels Safe at Home: Yes Assistive Devices: Hearing Aid - Bilateral Review of Systems A total of 10 systems reviewed and were otherwise negative Physical Exam Vital Signs Vital Signs - 24 hr 10/02/21 10:50 10/02/21 11:46 Temperature 37.3 C Temperature Source Oral Pulse Rate 104 H Pulse Rhythm Regular Pulse Strength Normal Respiratory Rate 20 Respiratory Effort / Characteristics Non-Labored Spontaneous Respiratory Depth Normal Respiratory Pattern Regular Blood Pressure 128/80 Blood Pressure Mean 96 Blood Pressure Position Sitting Pulse Oximetry 94 90 Oxygen Delivery Method Room Air Nasal Cannula Oxygen Flow Rate 3 Sepsis Recent Fever Within 48 Hours No Sepsis New/Unexplained Change in Mental Status No Sepsis Action Taken by Nursing No Action Required Physical Exam GENERAL: She is oriented to person, place, and time. She appears well-developed and well-nourished. She does not appear distressed. HENT: Exam performed. -Head: Normocephalic and atraumatic. -Right Ear: External ear normal. No mastoid tenderness. -Left Ear: External ear normal. No mastoid tenderness. -Mouth/Throat: The oropharynx is clear and moist. No trismus in the jaw. No dental abscesses or uvula swelling. No oropharyngeal exudate or tonsillar abscesses. EYES: Conjunctivae and EOM are normal. Pupils are equal, round, and reactive to light. Right eye exhibits no discharge. Left eye exhibits no discharge. No scleral icterus. NECK: Normal range of motion. Neck supple. No JVD present. No spinous process tenderness present. No carotid bruit present. No rigidity. No tracheal deviation and normal range of motion present. No Brudzinski's sign and no Kernig's sign noted. CV: Normal rate, regular rhythm, normal heart sounds and intact distal pulses. There is no peripheral edema. Palpable radial pulses bue. PULM/CHEST: Effort normal and breath sounds normal. No respiratory distress. No stridor. She has no wheezes. She has no rales. -Chest Wall: She exhibits no tenderness. ABD: The abdomen is soft. Bowel sounds are normal. She has no distension. No mass is present. There is no tenderness. There is no rebound, no guarding, no Cox's sign and no tenderness at McBurney's point. Rovsig negative MUSC/SKEL: Normal range of motion. There is no peripheral edema, tenderness or deformity. LYMPH: No cervical adenopathy. NEURO: She is alert and oriented to person, place, and time. She has normal strength. No cranial nerve deficit or sensory deficit. Coordination and gait normal. GCS eye subscore is 4. GCS verbal subscore is 5. GCS motor subscore is 6. Cerebellar tests wnl. Mild tremor. SKIN: Skin is warm and dry. She is not diaphoretic. PSYCH: She has a normal mood and affect. Behavior is normal. Judgment and thought content normal. Course Course 1106: The patient was evaluated in room B11. A complete history and physical exam was performed Cardiac monitoring: An order was placed for continuous cardiac monitoring. The monitor shows a rate of 105 with sinus tachycardia rhythm 1145: Made aware by nursing staff that the patient's oxygen saturation dipped below 90% on room air. Patient does not usually wear oxygen. Patient placed on supplemental oxygen via nasal cannula which improved her oxygen saturation. D- dimer and VBG also ordered for the patient. 1354: Vital signs stable on supplemental oxygen via nasal cannula. Labs show le ukocytosis 16.9. Hemoglobin 9.5. D-dimer elevated at 1310. VBG within normal limits. Potassium 3.2. Calcium 5.2. Magnesium 0.4. Urinalysis negative. Lyme screen negative. CT of the head is negative for acute changes. CTA of the chest shows no evidence of PEs but it does show cardiomegaly and emphysema with evidence of congestive failure and pulmonary edema. Lactic acid and procalcitonin are within normal limits. Discussed the case with [facility] hospitalist Dr. Briseno and Lars REIMBURSEMENT SPEC. They state they will admit the patient. We did discuss diuretic usage and I did express my concern about the patient's electrolytes. We will replace electrolytes start in the emergency department and then the admitting team will order diuretics after the electrolyte replacement is completed. Administered Medications Sodium Chloride (Nss 1000ml) 1,000 mls @ 125 mls/hr IV .Q8H EDWARDO Stop: 11/01/21 11:44 Last Admin: 10/02/21 11:54 Dose: 125 mls/hr Documented by: [id number] Magnesium Sulfate/Dextrose (Magnesium Sulfate / D5w) 1 gm in 100 mls @ 100 mls/hr IV Q1H EDWARDO Stop: 10/02/21 14:19 Last Admin: 10/02/21 12:38 Dose: 100 mls/hr Documented by: [id number] Discontinued Medications Ioversol (Optiray 320 125ml) 120 ml IV ONCE ONE Stop: 10/02/21 13:14 Last Admin: 10/02/21 13:14 Dose: 120 ml Documented by: [id number] Critical Care Time Critical Care Time: Yes Total Critical Care Time: 66 I have personally spent greater than 66 minutes of critical care time in the direct management of this patient. This includes bedside care, interpretation of diagnostic studies, and testing, discussion with consultants, patient, and family members, and other required patient management activities. This 66 minutes is in excess of all separately billable procedures. Medical Decision Making Laboratory Data Result diagrams: 10/02/21 11:30 10/02/21 11:30 Lab Results 10/02/21 10/02/21 10/02/21 Range/Units 11:30 11:30 11:30 WBC 16.92 H (4.8-10.8) K/uL RBC 3.29 L (4.2-5.4) M/uL Hgb 9.5 L (12.0-16.0) g/dL Hct 28.5 L (37-47) % MCV 86.6 (80-100) fL MCH 28.9 (25-34) pg MCHC 33.3 (32-36) g/dL RDW Std Deviation 53.8 H (36.4-46.3) fL RDW Coeff of Chary 17.1 H (11.5-14.5) % Plt Count 291 (130-400) K/uL MPV 9.8 (7.4-10.4) fL Immature Gran % (Auto) 0.5 % Neut % (Auto) 84.8 % Lymph % (Auto) 4.7 % Cook % (Auto) 9.8 % Eos % (Auto) 0.0 % Baso % (Auto) 0.2 % Neut # (Auto) 14.37 H (1.4-6.5) K/uL Lymph # (Auto) 0.79 L (1.2-3.4) K/uL Cook # (Auto) 1.65 H (0.11-0.59) K/uL Eos # (Auto) 0.00 (0-0.5) K/uL Baso # (Auto) 0.03 (0-0.2) K/uL Immature Gran # (Auto) 0.08 H (0.00-0.02) K/uL PT 13.5 H (9.0-12.0) Seconds INR 1.4 H (0.9-1.1) APTT 27.7 (21.0-31.0) Seconds PTT Ratio 1.1 D-Dimer 1310 H* (0-500) ug/L FEU VBG pH (7.36-7.41) VBG pCO2 (38-50) mmHg VBG pO2 mmHg VBG HCO3 mmol/L VBG O2 Saturation % VBG Base Excess mEq/L Barometric Pressure mm/Hg Sodium 142 (136-145) mmol/L Potassium 3.2 L (3.5-5.1) mmol/L Chloride 111 H (98-107) mmol/L Carbon Dioxide 18 L (21-32) mmol/L Anion Gap 13.0 H (3-11) BUN 13 (7-18) mg/dl Creatinine 0.83 (0.6-1.2) mg/dl Est Cr Clr Drug Dosing 52.7 ml/min Est GFR ( Amer) 85.2 ml/min Est GFR (Non-Af Amer) 73.5 ml/min BUN/Creatinine Ratio 15.5 (10-20) Glucose 84 (70-99) mg/dl Lactate (0.4-2.0) mmol/L Calcium 5.2 L* (8.5-10.1) mg/dl Magnesium 0.4 L* (1.8-2.4) mg/dl Total Bilirubin 0.4 (0.2-1) mg/dl AST 27 (15-37) U/L ALT 37 (12-78) U/L Alkaline Phosphatase 79 (45-117) U/L Troponin I 0.028 (0-0.045) ng/ml Total Protein 6.0 L (6.4-8.2) gm/dl Albumin 2.7 L (3.4-5.0) gm/dl Globulin 3.3 (2.5-4.0) gm/dl Albumin/Globulin Ratio 0.8 L (0.9-2) Procalcitonin (0-0.5) ng/ml Urine Color Urine Appearance (Clear) Urine pH (4.5-7.5) Ur Specific [place] (1.000-1.030) Urine Protein (Negative) Urine Glucose (UA) (Negative) Urine Ketones (Negative) Urine Blood (Negative) Urine Nitrite (Negative) Urine Bilirubin (Negative) Urine Urobilinogen (Negative) Ur Leukocyte Esterase (Negative) Urine WBC (Auto) (0-5) /hpf Urine RBC (Auto) (0-4) /hpf U Hyaline Cast (Auto) (0-5) /lpf U Epithel Cells (Auto) (0-5) /lpf Urine Bacteria (Auto) (Negative) Lyme Disease IgG Ab (Negative) Lyme Disease IgM Ab (Negative) 10/02/21 10/02/21 10/02/21 Range/Units 11:30 11:30 11:30 WBC (4.8-10.8) K/uL RBC (4.2-5.4) M/uL Hgb (12.0-16.0) g/dL Hct (37-47) % MCV (80-100) fL MCH (25-34) pg MCHC (32-36) g/dL RDW Std Deviation (36.4-46.3) fL RDW Coeff of Chary (11.5-14.5) % Plt Count (130-400) K/uL MPV (7.4-10.4) fL Immature Gran % (Auto) % Neut % (Auto) % Lymph % (Auto) % Cook % (Auto) % Eos % (Auto) % Baso % (Auto) % Neut # (Auto) (1.4-6.5) K/uL Lymph # (Auto) (1.2-3.4) K/uL Cook # (Auto) (0.11-0.59) K/uL Eos # (Auto) (0-0.5) K/uL Baso # (Auto) (0-0.2) K/uL Immature Gran # (Auto) (0.00-0.02) K/uL PT (9.0-12.0) Seconds INR (0.9-1.1) APTT (21.0-31.0) Seconds PTT Ratio D-Dimer (0-500) ug/L FEU VBG pH (7.36-7.41) VBG pCO2 (38-50) mmHg VBG pO2 mmHg VBG HCO3 mmol/L VBG O2 Saturation % VBG Base Excess mEq/L Barometric Pressure mm/Hg Sodium (136-145) mmol/L Potassium (3.5-5.1) mmol/L Chloride (98-107) mmol/L Carbon Dioxide (21-32) mmol/L Anion Gap (3-11) BUN (7-18) mg/dl Creatinine (0.6-1.2) mg/dl Est Cr Clr Drug Dosing ml/min Est GFR ( Amer) ml/min Est GFR (Non-Af Amer) ml/min BUN/Creatinine Ratio (10-20) Glucose (70-99) mg/dl Lactate 1.1 (0.4-2.0) mmol/L Calcium (8.5-10.1) mg/dl Magnesium (1.8-2.4) mg/dl Total Bilirubin (0.2-1) mg/dl AST (15-37) U/L ALT (12-78) U/L Alkaline Phosphatase (45-117) U/L Troponin I (0-0.045) ng/ml Total Protein (6.4-8.2) gm/dl Albumin (3.4-5.0) gm/dl Globulin (2.5-4.0) gm/dl Albumin/Globulin Ratio (0.9-2) Procalcitonin < 0.05 (0-0.5) ng/ml Urine Color Urine Appearance (Clear) Urine pH (4.5-7.5) Ur Specific [place] (1.000-1.030) Urine Protein (Negative) Urine Glucose (UA) (Negative) Urine Ketones (Negative) Urine Blood (Negative) Urine Nitrite (Negative) Urine Bilirubin (Negative) Urine Urobilinogen (Negative) Ur Leukocyte Esterase (Negative) Urine WBC (Auto) (0-5) /hpf Urine RBC (Auto) (0-4) /hpf U Hyaline Cast (Auto) (0-5) /lpf U Epithel Cells (Auto) (0-5) /lpf Urine Bacteria (Auto) (Negative) Lyme Disease IgG Ab Negative (Negative) Lyme Disease IgM Ab Negative (Negative) 10/02/21 10/02/21 Range/Units 11:56 12:33 WBC (4.8-10.8) K/uL RBC (4.2-5.4) M/uL Hgb (12.0-16.0) g/dL Hct (37-47) % MCV (80-100) fL MCH (25-34) pg MCHC (32-36) g/dL RDW Std Deviation (36.4-46.3) fL RDW Coeff of Chary (11.5-14.5) % Plt Count (130-400) K/uL MPV (7.4-10.4) fL Immature Gran % (Auto) % Neut % (Auto) % Lymph % (Auto) % Cook % (Auto) % Eos % (Auto) % Baso % (Auto) % Neut # (Auto) (1.4-6.5) K/uL Lymph # (Auto) (1.2-3.4) K/uL Cook # (Auto) (0.11-0.59) K/uL Eos # (Auto) (0-0.5) K/uL Baso # (Auto) (0-0.2) K/uL Immature Gran # (Auto) (0.00-0.02) K/uL PT (9.0-12.0) Seconds INR (0.9-1.1) APTT (21.0-31.0) Seconds PTT Ratio D-Dimer (0-500) ug/L FEU VBG pH 7.46 H (7.36-7.41) VBG pCO2 29 L (38-50) mmHg VBG pO2 41 mmHg VBG HCO3 20 mmol/L VBG O2 Saturation 75.7 % VBG Base Excess -3.2 mEq/L Barometric Pressure 741.5 mm/Hg Sodium (136-145) mmol/L Potassium (3.5-5.1) mmol/L Chloride (98-107) mmol/L Carbon Dioxide (21-32) mmol/L Anion Gap (3-11) BUN (7-18) mg/dl Creatinine (0.6-1.2) mg/dl Est Cr Clr Drug Dosing ml/min Est GFR ( Amer) ml/min Est GFR (Non-Af Amer) ml/min BUN/Creatinine Ratio (10-20) Glucose (70-99) mg/dl Lactate (0.4-2.0) mmol/L Calcium (8.5-10.1) mg/dl Magnesium (1.8-2.4) mg/dl Total Bilirubin (0.2-1) mg/dl AST (15-37) U/L ALT (12-78) U/L Alkaline Phosphatase (45-117) U/L Troponin I (0-0.045) ng/ml Total Protein (6.4-8.2) gm/dl Albumin (3.4-5.0) gm/dl Globulin (2.5-4.0) gm/dl Albumin/Globulin Ratio (0.9-2) Procalcitonin (0-0.5) ng/ml Urine Color Yellow Urine Appearance Clear (Clear) Urine pH 5.0 (4.5-7.5) Ur Specific [place] 1.011 (1.000-1.030) Urine Protein 1+ H (Negative) Urine Glucose (UA) Negative (Negative) Urine Ketones 1+ H (Negative) Urine Blood Trace H (Negative) Urine Nitrite Negative (Negative) Urine Bilirubin Negative (Negative) Urine Urobilinogen Negative (Negative) Ur Leukocyte Esterase Negative (Negative) Urine WBC (Auto) 1-5 (0-5) /hpf Urine RBC (Auto) 0-4 (0-4) /hpf U Hyaline Cast (Auto) 1-5 (0-5) /lpf U Epithel Cells (Auto) 10-20 H (0-5) /lpf Urine Bacteria (Auto) Negative (Negative) Lyme Disease IgG Ab (Negative) Lyme Disease IgM Ab (Negative) Imaging Data Radiologist's Impression: Head CT 10/02/21 11:[address] DOSE: 614.27 mGy.cm HISTORY: difficulty walking weakness TECHNIQUE: Multiaxial CT images of the head were performed without the use of intravenous contrast. Automated exposure control was utilized for this study. A dose lowering technique was utilized adhering to the principles of ALARA. Comparison: Head CT 10/16/2018. Findings: Minimal chronic mucosal thickening within the right maxillary sinus. The mastoid air cells are clear. The calvarium and skull base are intact. The ventricles and sulci are within normal limits. There is no mass, hematoma, midline shift, or acute infarct. A few scattered patchy areas of hypodensity within the periventricular and subcortical white matter of the supratentorial brain are again noted. These are similar to prior study and therefore favor microvascular ischemic change. A demyelinating disease or Lyme disease could also have a similar appearance in the appropriate clinical setting. Impression: 1. No significant change compared to the prior study. No acute intracranial abnormality.. 2. A few scattered patchy areas of hypodensity within the periventricular and subcortical white matter of the supratentorial brain are again noted. These are similar to prior study and therefore favor microvascular ischemic change. A demyelinating disease or Lyme disease could also have a similar appearance in the appropriate clinical setting. ACT 112: Negative or not required by law. Electronically signed by: Alexis Hermosillo M.D. 10/02/2021 11:52 AM Chest CTA 10/02/21 12:10 CT ANGIOGRAM OF THE CHEST CLINICAL HISTORY: Generalized weakness. COMPARISON STUDY: Chest CT dated 12/28/2019. Chest x-ray dated 08/24/2021. CT of the lumbar spine dated 06/22/2021. TECHNIQUE: Following the IV administration of 120 cc of Optiray 320, CT angiogram of the chest was performed from the upper abdomen to the thoracic inlet utilizing the pulmonary embolus protocol. Images are reviewed in the ax ial, sagittal, and coronal planes. 3-D MIPS images are created and assessed. IV contrast was administered without complication. A dose lowering technique was utilized adhering to the principles of ALARA. CT DOSE: 293.80 mGycm FINDINGS: Thyroid: Imaged portions of the thyroid gland are normal in size and attenuation. Thoracic aorta: There is atherosclerotic calcification of the thoracic aorta, which is normal in caliber and demonstrates standard 3-vessel arch anatomy. No dissection is seen. Pulmonary vasculature: The pulmonary trunk is normal in caliber. There are no filling defects identified in main, lobar, or segmental pulmonary branches to suggest pulmonary embolus. Heart: The heart is enlarged and without pericardial effusion. The coronary arteries are densely calcified. Lungs and pleural spaces: Emphysematous change is noted. Diffuse intralobular septal thickening is seen throughout both lungs. There are small pleural effusions, right larger than left with bibasilar consolidation. Groundglass meeks ge is seen throughout both lungs. The trachea and central airways are clear. There are scattered calcified granulomas. Mediastinum: There is no mediastinal lymphadenopathy. Eve: Clear. Axillae: There is no axillary lymphadenopathy. Upper abdomen: Partially visualized upper abdominal viscera is within normal limits. Skeletal structures: The skeletal structures are osteopenic. Postoperative change is noted in the upper lumbar spine. There is fracture of the left lamina of L2, seen on axial image #24. Lucency around the left interpedicular screw at L2 suggests loosening. Degenerative change and scoliosis is seen. The thoracic spine. No lytic or blastic bony lesions are seen. IMPRESSION: 1. There is no evidence of pulmonary embolus in the main, lobar, or segmental pulmonary arteries. 2. Cardiomegaly and emphysema with evidence of congestive failure and pulmonary edema. 3. Small pleural effusions with bibasilar consolidation. This likely represents atelectasis. Correlate clinically for evidence of a superimposed pneumonia. 4. A chronic left L2 lamina fracture is again noted. 5. Lucency around the left interpedicular screw at L2 suggests loosening. 5. Additional findings as above. ACT 112: Negative or not required by law. Electronically signed by: Black Orozco M.D. 10/02/2021 1:28 PM ECG Data Indication: + weakness Rate (beats per minute): 102 Rhythm: + sinus tachycardia ECG ST segments: + Normal ST segments Additional Comments: NM 114 QRS 68 QTc 495 MDM Narrative 1106: The patient was evaluated in room B11. A complete history and physical exam was performed Cardiac monitoring: An order was placed for continuous cardiac monitoring. The monitor shows a rate of 105 with sinus tachycardia rhythm 1145: Made aware by nursing staff that the patient's oxygen saturation dipped below 90% on room air. Patient does not usually wear oxygen. Patient placed on supplemental oxygen via nasal cannula which improved her oxygen saturation. D- dimer and VBG also ordered for the patient. 1354: Vital signs stable on supplemental oxygen via nasal cannula. Labs show leukocytosis 16.9. Hemoglobin 9.5. D-dimer elevated at 1310. VBG within normal limits. Potassium 3.2. Calcium 5.2. Magnesium 0.4. Urinalysis negative. Lyme screen negative. CT of the head is negative for acute changes. CTA of the chest shows no evidence of PEs but it does show cardiomegaly and emphysema with evidence of congestive failure and pulmonary edema. Lactic acid and procalcitonin are within normal limits. Discussed the case with [facility] hospitalist Dr. Briseno and Lars BELTRAN. They state they will admit the patient. We did discuss diuretic usage and I did express my concern about the patient's electrolytes. We will replace electrolytes start in the emergency department and then the admitting team will order diuretics after the electrolyte replacement is completed. Impression & Plan Hypoxia, Hypocalcemia, Hypokalemia, Hypomagnesemia, Pulmonary edema Discharge Plan Visit Data Chief Complaint: Weakness Stated Complaint: DIFF. AMBULATING ED Provider: Chad Triplett Discharge Problem: Hypoxia, Hypocalcemia, Hypokalemia, Hypomagnesemia, Pulmonary edema Patient Disposition: Admitted As Inpatient Forms Stand Alone Forms: [facility] Prescriptions Prescriptions: No Action magnesium 250 mg tablet 250 mg PO BID Qty: 180 RF: 3 potassium chloride 10 mEq capsule, extended release 10 meq PO QAM Qty: 90 RF: 3 ropinirole 0.25 mg tablet 0.75 mg PO DAILY 90 Days Qty: 270 RF: 3 pantoprazole [Protonix] 40 mg tablet,delayed release (DR/EC) 40 mg PO HS Qty: 90 RF: 3 fluoxetine 20 mg tablet 20 mg PO HS Qty: 30 RF: 5 lorazepam 1 mg tablet 1 mg PO BID PRN (Reason: anxiety) Qty: 60 RF: 2 calcium carbonate 600 mg calcium (1,500 mg) tablet 600 mg PO QAM RF: 0 Humira(CF) 40 mg/0.4 mL syringe kit 40 mg SQ Q14D RF: 0 levocetirizine [Xyzal] 5 mg tablet 5 mg PO HS RF: 0 ascorbic acid (vitamin C) 1,000 mg tablet 1 gm PO QAM RF: 0 folic acid 1 mg tablet 1 mg PO QAM RF: 0 vitamin E succinate 400 unit tablet 400 units PO QAM RF: 0 fluconazole 150 mg tablet 150 mg PO Q48H 0 Days Qty: 2 RF: 0 promethazine 25 mg tablet 25 mg PO Q6H PRN (Reason: nausea and vomiting) Qty: 30 RF: 2 nifedipine 90 mg tablet extended release 90 mg PO QAM RF: 0 methotrexate sodium 2.5 mg tablet 10 mg PO WK RF: 0 hydroxychloroquine 200 mg tablet 200 mg PO HS RF: 0 cholecalciferol (vitamin D3) 2,000 unit tablet 2,000 units PO QAM RF: 0 famotidine 40 mg tablet 40 mg PO HS RF: 0 ferrous sulfate 325 mg (65 mg iron) tablet 325 mg PO QAM RF: 0 multivitamin Tablet 1 tab PO QAM RF: 0 Referrals Referrals: Raffy Cash MD [Primary Care Provider] -
[2021-10-02 11:47] LABS: Basophils # (auto) 0.03 K/uL (0-0.2); Basophils % (auto) 0.2 %; Hematocrit (blood only) 28.5 % (37-47); Hemoglobin 9.5 g/dL (12.0-16.0); Immature Granulocytes # (auto) 0.08 K/uL (0.00-0.02); Immature Granulocytes % (auto) 0.5 %; Lymphocytes # (auto) 0.79 K/uL (1.2-3.4); Lymphocytes % (auto) 4.7 %; Mean Corpuscular Hemoglobin 28.9 pg (25-34); Mean Corpuscular Hgb Conc 33.3 g/dL (32-36); Mean Corpuscular Volume 86.6 fL (80-100); Mean Platelet Volume 9.8 fL (7.4-10.4); Monocytes # (auto) 1.65 K/uL (0.11-0.59); Monocytes % (auto) 9.8 %; Neutrophils # (auto) 14.37 K/uL (1.4-6.5); Neutrophils % (auto) 84.8 %; Platelet Count 291 K/uL (130-400); RDW Coefficient of Variation 17.1 % (11.5-14.5); RDW Standard Deviation 53.8 fL (36.4-46.3); Red Blood Count 3.29 M/uL (4.2-5.4); White Blood Count 16.92 K/uL (4.8-10.8)
[2021-10-02] MEDS: SODIUM CHLORIDE 0.9% 1000ML 1,000 ML IV SCH (11:54)
--- NOTE | 2021-10-02 11:54 | CT Scan Report ---
HEAD CT NONCONTRAST CT DOSE: 614.27 mGy.cm HISTORY: difficulty walking weakness TECHNIQUE: Multiaxial CT images of the head were performed without the use of intravenous contrast. A utomated exposure control was utilized for this study. A dose lowering technique was utilized adheri ng to the principles of ALARA. Comparison: Head CT 10/16/2018. Findings: Minimal chronic mucosal thickening within the right maxillary sinus. The mastoid air cells are clear. The calvarium and skull base are intact. The ventricles and sulci are within normal limits . There is no mass, hematoma, midline shift, or acute infarct. A few scattered patchy areas of hypode nsity within the periventricular and subcortical white matter of the supratentorial brain are again n oted. These are similar to prior study and therefore favor microvascular ischemic change. A demyelina ting disease or Lyme disease could also have a similar appearance in the appropriate clinical setting . Impression: 1. No significant change compared to the prior study. No acute intracranial abnormality.. 2. A few scattered patchy areas of hypodensity within the periventricular and subcortical white matte r of the supratentorial brain are again noted. These are similar to prior study and therefore favor m icrovascular ischemic change. A demyelinating disease or Lyme disease could also have a similar appea krista in the appropriate clinical setting. ACT 112: Negative or not required by law. Electronically signed by: Alexis Hermosillo M.D. 10/02/2021 11:52 AM
[2021-10-02 12:00] LABS: INR 1.4 (0.9-1.1); Partial Thromboplastin Ratio 1.1; Partial Thromboplastin Time 27.7 Seconds (21.0-31.0); Prothrombin Time 13.5 Seconds (9.0-12.0)
[2021-10-02 12:02] LABS: D Dimer 1310 ug/L FEU (0-500)
[2021-10-02 12:10] LABS: Albumin Globulin Ratio 0.8 (0.9-2); Albumin Level 2.7 gm/dl (3.4-5.0); BUN Creatinine Ratio 15.5 (10-20); Bilirubin,Total 0.4 mg/dl (0.2-1); Calcium 5.2 mg/dl (8.5-10.1); Creatinine Clr Calc Pharmacy 52.7 ml/min; Est GFR (African American) 85.2 ml/min; Est GFR (Non-African American) 73.5 ml/min; Globulin 3.3 gm/dl (2.5-4.0); Magnesium 0.4 mg/dl (1.8-2.4); Potassium 3.2 mmol/L (3.5-5.1); Troponin I 0.028 ng/ml (0-0.045)
[2021-10-02 12:14] LABS: Base Excess VBG -3.2 mEq/L; Oxygen Saturation VBG 75.7 %; pH VBG 7.46 (7.36-7.41)
[2021-10-02] MEDS ORDERED: CALCIUM GLUCONATE 1,000 MG/60 ML BAG IV STA (12:20)
[2021-10-02] MEDS: MAGNESIUM SULFATE / D5W 1 GM/100 ML BAG IV SCH ×4 (12:38→20:13)
[2021-10-02] MEDS ORDERED: OPTIRAY 320 125ml IV ONE (13:13)
[2021-10-02 13:23] LABS: Appearance Urine Clear (Clear); Bacteria Urine Automated Negative (Negative); Bilirubin Urine Negative (Negative); Blood Urine Trace (Negative); Color Urine Yellow; Glucose Urine UA Negative (Negative); Ketones Urine 1+ (Negative); Leukocyte Esterase Urine Negative (Negative); Nitrite Urine Negative (Negative); Protein Urine 1+ (Negative); RBC Urine Automated 0-4 /hpf (0-4); Specific Gravity Urine 1.011 (1.000-1.030); Urobilinogen Urine Negative (Negative)
--- NOTE | 2021-10-02 13:29 | CT Scan Report ---
CT ANGIOGRAM OF THE CHEST CLINICAL HISTORY: Generalized weakness. COMPARISON STUDY: Chest CT dated 12/28/2019. Chest x-ray dated 08/24/2021. CT of the lumbar spine carmina ed 06/22/2021. TECHNIQUE: Following the IV administration of 120 cc of Optiray 320, CT angiogram of the chest was pe rformed from the upper abdomen to the thoracic inlet utilizing the pulmonary embolus protocol. Images are reviewed in the axial, sagittal, and coronal planes. 3-D MIPS images are created and assessed. I V contrast was administered without complication. A dose lowering technique was utilized adhering to the principles of ALARA. CT DOSE: 293.80 mGycm FINDINGS: Thyroid: Imaged portions of the thyroid gland are normal in size and attenuation. Thoracic aorta: There is atherosclerotic calcification of the thoracic aorta, which is normal in sarina rosy and demonstrates standard 3-vessel arch anatomy. No dissection is seen. Pulmonary vasculature: The pulmonary trunk is normal in caliber. There are no filling defects identif ied in main, lobar, or segmental pulmonary branches to suggest pulmonary embolus. Heart: The heart is enlarged and without pericardial effusion. The coronary arteries are densely calc ified. Lungs and pleural spaces: Emphysematous change is noted. Diffuse intralobular septal thickening is se en throughout both lungs. There are small pleural effusions, right larger than left with bibasilar co nsolidation. Groundglass change is seen throughout both lungs. The trachea and central airways are cl ear. There are scattered calcified granulomas. Mediastinum: There is no mediastinal lymphadenopathy. Eve: Clear. Axillae: There is no axillary lymphadenopathy. Upper abdomen: Partially visualized upper abdominal viscera is within normal limits. Skeletal structures: The skeletal structures are osteopenic. Postoperative change is noted in the upp er lumbar spine. There is fracture of the left lamina of L2, seen on axial image #24. Lucency around the left interpedicular screw at L2 suggests loosening. Degenerative change and scoliosis is seen. Th e thoracic spine. No lytic or blastic bony lesions are seen. IMPRESSION: 1. There is no evidence of pulmonary embolus in the main, lobar, or segmental pulmonary arteries. 2. Cardiomegaly and emphysema with evidence of congestive failure and pulmonary edema. 3. Small pleural effusions with bibasilar consolidation. This likely represents atelectasis. Correlat e clinically for evidence of a superimposed pneumonia. 4. A chronic left L2 lamina fracture is again noted. 5. Lucency around the left interpedicular screw at L2 suggests loosening. 5. Additional findings as above. ACT 112: Negative or not required by law. Electronically signed by: Black Orozco M.D. 10/02/2021 1:28 PM
[2021-10-02 13:35] LABS: Lyme Ab IgG w/WB Rflx Negative (Negative); Lyme Ab IgM w/WB Rflx Negative (Negative)
[2021-10-02] MEDS ORDERED: POTASSIUM CHLORIDE CRTAB 20 MEQ TABCR PO STA (13:53)
[2021-10-02] MEDS ORDERED: ALBUTEROL 0.083% NEBU SOLN 3 ML VIAL NEB STA (14:45)
[2021-10-02] MEDS ORDERED: THIAMINE HCL 200 MG in SODIUM CHLORIDE 0.9% 50 ML IV STA (14:50)
[2021-10-02] MEDS ORDERED: ALBUTEROL 0.083% NEBU SOLN 3 ML VIAL NEB PRN (14:53)
[2021-10-02] MEDS ORDERED: MAGNESIUM SULFATE / D5W 1 GM/100 ML BAG IV STA (14:56)
--- NOTE | 2021-10-02 14:59 | History & Physical Report ---
Date of Service October 02, 2021 Assessment & Plan (1) Diarrhea: Plan: Acute on chronic issue: Patient has previously followed with GI with colonoscopy in 2015 with biopsies that were negative - Currently resolved with self treatment of immodium at home - Clinically intravascular depleted - nutritional status poor at baseline - If diarrhea continue consider Cdiff- no clinical risks (2) Hypomagnesemia: Plan: Magnesium 0.4 on admission- secondry to diarrhea and poor nutrtional intake - 2GM given in EMD- follow with 3 GM inpatient for total of 5GM - Mag level in the morning - control diarrhea (3) Hypocalcemia: Plan: Serum 5.2 - corrected 6.24 - ionized 0.65- replete 1GM in EMD - continue with another 3 GM calc gluconate in patient - nutritional support and replace (4) Hypokalemia: Plan: Replete as above (5) Pulmonary edema: Plan: Likely related to her HR and poor respiratory effort- and likely undiagnosed COPD and ? RA component - will diurese with amiloride x1 dose now - Albuterol neb now and then prn - PO4 pending on admission - PCT negative and not infectious appearing (6) CREST syndrome: Plan: Follows with rheumatology - on DMARDS (7) GERD (gastroesophageal reflux disease): Plan: Continue famotidine - Hold PPI until MG increased (8) Restless leg syndrome: Plan: Continue ropinrole (9) Anxiety: Plan: Continue PRN ativan - ? underlying eating disorder (10) Smoker: Plan: Continued smoker - possibly with undiagnosed COPD - smoking cessation (11) Hypoxia: Plan: As above- follow respiratory efforts with diruseing, repleting electrolytes - mild pulmonary edema- ECHO for tomorrow (12) Elevated INR: Plan: Likely related to poor nutrion in the setting of normal LFTs and normal bili, a nd alk po4 - 1.4- check in morning if >1.5 may need vitamin K (13) Poor nutrition: Plan: As above- nutritional assessment - evaluate for oral supplements - ? eating habits - follow PO4 for refeeding - Thiamine 200mg IV daily (14) Leukocytosis: Plan: No evidence of infection noted- PCT negative - tomiley hemoconcentrated intravascular - LR overnight and follow - UA negative (15) Mitral regurgitation: Plan: Mild on last ECHO with preserved EF - ? worsening with tachycardia and low albumin - Suport as above - and follow History of Present Illness Primary Care Provider: Raffy Cash MD 66 YOF with past medical history: RA, CREST syndrome, Active smoker, Chronic back pain with lumbar radiculopathy, HTN, Electrolyte derangements. Patient comes in today for lower extremity weakness, tremors, loss of appetite. Patient reports 5-7 days of diarrhea that is loose, watery, and brown in color occurring 4-6 times per day. This has no blood or mucous or any association with abdominal pain or discomfort. She has not had any vomiting or nausea. This is associated with loss of appetite and her reports that her appetite over the past 2 months has been poor usually will eat breakfast and nothing else for the rest of the day with possible nibbling at dinner time. In the EMD the patient had routine labs drawn, which revealed MG 0.4, K 3.2, CA 5.2 (iCA- ), PO4, INR 1.4, and elevated WBC. She is also noted to be requiring oxygen therapy and experienced wheezing with a cough last night requiring her to use her albuterol inhaler last night. She had a CT scan performed of her chest that revealed no pulmonary embolism with mild pulmonary edema noted. Her COVID test is negative and she denies any further complaints of illness. Patient will be admitted for electrolyte correction, intravascular volume support, will give 1 dose of distal tubule diuretic for pulmonary efforts. Nutritional assessment. Allergies Allergy/AdvReac Type Severity Reaction Status Date / Time gabapentin Allergy Unknown Feet Verified 10/02/21 12:58 swelling (with higher doses) grass pollen Allergy Unknown Hay fever Verified 10/02/21 12:58 mold Allergy Unknown Hay fever Verified 10/02/21 12:58 spironolactone Allergy Unknown Feet Verified 10/02/21 12:58 swelling Penicillins AdvReac Unknown Yeast Verified 10/02/21 12:58 infection Home Medications Medication Instructions Recorded Confirmed Type methotrexate sodium 2.5 mg tablet 10 mg PO WK 10/16/18 10/02/21 History nifedipine 90 mg tablet,extended 90 mg PO QAM 10/16/18 10/02/21 History release adalimumab 40 mg/0.4 mL 40 mg SQ Q14D ea 05/03/19 10/02/21 History subcutaneous syringe kit (Humira(CF)) calcium carbonate 600 mg calcium 600 mg PO QAM tab 05/03/19 10/02/21 History (1,500 mg) tablet levocetirizine 5 mg tablet (Xyzal) 5 mg PO HS 05/03/19 10/02/21 History ascorbic acid (vitamin C) 1,000 mg 1 gm PO QAM tab 08/11/19 10/02/21 History tablet folic acid 1 mg tablet 1 mg PO QAM tab 08/11/19 10/02/21 History vitamin E succinate 268 mg (400 400 units PO QAM tab 08/11/19 10/02/21 History unit) tablet hydroxychloroquine 200 mg tablet 200 mg PO HS tab 12/13/19 10/02/21 History cholecalciferol (vitamin D3) 50 2,000 units PO QAM 11/20/20 10/02/21 History mcg (2,000 unit) tablet famotidine 40 mg tablet 40 mg PO HS 11/20/20 10/02/21 History ferrous sulfate 325 mg (65 mg 325 mg PO QAM 11/20/20 10/02/21 History iron) tablet multivitamin 1 tab PO QAM 11/20/20 10/02/21 History fluconazole 150 mg tablet 150 mg PO Q48H 0 Days #2 tab 04/10/21 10/02/21 Rx promethazine 25 mg tablet 25 mg PO Q6H PRN #30 tab 04/10/21 10/02/21 Rx magnesium 250 mg tablet 250 mg PO BID #180 tab 04/16/21 10/02/21 Rx potassium chloride 10 mEq 10 meq PO QAM #90 cap 04/16/21 10/02/21 Rx capsule,extended release pantoprazole 40 mg tablet,delayed 40 mg PO HS #90 tab 08/10/21 10/02/21 Rx release (Protonix) ropinirole 0.25 mg tablet 0.75 mg PO DAILY 90 Days #270 tab 08/10/21 10/02/21 Rx fluoxetine 20 mg tablet 20 mg PO HS #30 tab 09/14/21 10/02/21 Rx lorazepam 1 mg tablet 1 mg PO BID PRN #60 tab 09/21/21 10/02/21 Rx Past Med/Surg History Medical History Allergic rhinitis Anxiety Arthritis Asthma well controlled per pt Chronic obstructive pulmonary disease well controlled per pt > no inh CREST syndrome + raynaud's symptoms, follows with Dr. Bradly Ahuja ([place]) Degenerative disc disease Depression Endometriosis GERD (gastroesophageal reflux disease) Hypertension Lumbar spinal stenosis Restless leg syndrome Rheumatoid arthritis Scleroderma Scoliosis Surgical History History of colonoscopy S/P correction of deviated nasal septum S/P tonsillectomy S/P total abdominal hysterectomy and bilateral salpingo-oophorectomy Family History Mother Dementia Osteoporosis Sister Hypertension Father Myocardial infarction Diet age 50 secondary to myocardial infarction Other Medical history non-contributory Denies family history of Ovarian cancer Prostate cancer Breast cancer Colorectal cancer Social History Smoking Status: Current every day smoker Age Started Using Tobacco: 19; packs per day: 0.5; Cigarettes Per Day: 3; Second Hand Exposure: No; Hx Alcohol Use: Yes Alcohol type: wine Alcohol Intake Frequency Comment: 1-2 alcoholic beverages per day. Hx Substance Use: No Preferred Language: Congolese Communication Ability: Effective Visual Impairment: No Limitations Hearing Ability: Use of Hearing Aid Capsule Maker Required: Yes Beliefs That Will Affect Care: None marital status: Current Living Situation: Spouse current occupational status: employed current occupation: Working for [employer] Feels Safe at Home: Yes Assistive Devices: Hearing Aid - Bilateral Review of Systems Review of Systems: REVIEW OF SYSTEMS: Constitutional: No fever, sweats or chills Eyes: No diplopia, no worsening or blurred vision ENT: (+) difficulty hearing wears hearing aids, no trouble swallowing Respiratory: (+) dyspnea at rest or on exertion, wheezing, No cough, sputum, Cardiovascular: No chest pain, tightness or palpitations Abdomen: (+) diarrhea , No pain, nausea, vomiting, or constipation Musculoskeletal: No joint pain, calf pain, swelling Neurologic: N(+) tremors and weakness, Psychiatric: No anxiety or depression Skin: No rash or itch Physical Exam Physical Exam: PHYSICAL EXAM: General: awake, alert, anxious Head: Normocephalic, atraumatic ENT: PERRL, EOMI, no pharyngeal exudate, mucous membranes dry and cracked Neuro: AAO x 3, speech clear and appropriate, strength intact bilaterally 5/5, sensation intact and equal all extremities and dermatomes, no pronator drift, continuous tremor and spasticity Chest: equal rise and fall of the chest, no accessory muscle use, no heaves or thirlls, scattered crackles on auscultation, on room air, Cardiac: Regular rate and rhythm, telemetry reviewed- ST, skin warm dry, cap refill <3 seconds, peripheral pulses +2 no JVD, Grade I systolic murmur, no JVD,+2 edema to ankles GI: NABS x 4 quadrants, soft, nontender to palpation, no rebound, guarding or tenderness : Spontaneously voiding, no pain, no CVA tenderness, Extremities: Normal inspection, no peripheral edema or erythema, calfs nontender to palpation Psych: anxious Skin: no rash or erythema Results & Data Results & Data ([place]) Vital Signs (Past 12 Hours) Vital Signs Temp Pulse Resp BP Pulse Ox 10/02/21 11:46 90 10/02/21 10:50 37.3 C 104 H 20 128/80 94 Laboratory Results Abnormal lab results 10/02/21 10/02/21 10/02/21 Range/Units 11:30 11:30 11:30 WBC 16.92 H (4.8-10.8) K/uL RBC 3.29 L (4.2-5.4) M/uL Hgb 9.5 L (12.0-16.0) g/dL Hct 28.5 L (37-47) % RDW Std Deviation 53.8 H (36.4-46.3) fL RDW Coeff of Chary 17.1 H (11.5-14.5) % Neut # (Auto) 14.37 H (1.4-6.5) K/uL Lymph # (Auto) 0.79 L (1.2-3.4) K/uL Kemper # (Auto) 1.65 H (0.11-0.59) K/uL Immature Gran # (Auto) 0.08 H (0.00-0.02) K/uL PT 13.5 H (9.0-12.0) Seconds INR 1.4 H (0.9-1.1) D-Dimer 1310 H* (0-500) ug/L FEU VBG pH (7.36-7.41) VBG pCO2 (38-50) mmHg Potassium 3.2 L (3.5-5.1) mmol/L Chloride 111 H (98-107) mmol/L Carbon Dioxide 18 L (21-32) mmol/L Anion Gap 13.0 H (3-11) Calcium 5.2 L* (8.5-10.1) mg/dl Magnesium 0.4 L* (1.8-2.4) mg/dl Total Protein 6.0 L (6.4-8.2) gm/dl Albumin 2.7 L (3.4-5.0) gm/dl Albumin/Globulin Ratio 0.8 L (0.9-2) Urine Protein (Negative) Urine Ketones (Negative) Urine Blood (Negative) U Epithel Cells (Auto) (0-5) /lpf 10/02/21 10/02/21 Range/Units 11:56 12:33 WBC (4.8-10.8) K/uL RBC (4.2-5.4) M/uL Hgb (12.0-16.0) g/dL Hct (37-47) % RDW Std Deviation (36.4-46.3) fL RDW Coeff of Chary (11.5-14.5) % Neut # (Auto) (1.4-6.5) K/uL Lymph # (Auto) (1.2-3.4) K/uL Kemper # (Auto) (0.11-0.59) K/uL Immature Gran # (Auto) (0.00-0.02) K/uL PT (9.0-12.0) Seconds INR (0.9-1.1) D-Dimer (0-500) ug/L FEU VBG pH 7.46 H (7.36-7.41) VBG pCO2 29 L (38-50) mmHg Potassium (3.5-5.1) mmol/L Chloride (98-107) mmol/L Carbon Dioxide (21-32) mmol/L Anion Gap (3-11) Calcium (8.5-10.1) mg/dl Magnesium (1.8-2.4) mg/dl Total Protein (6.4-8.2) gm/dl Albumin (3.4-5.0) gm/dl Albumin/Globulin Ratio (0.9-2) Urine Protein 1+ H (Negative) Urine Ketones 1+ H (Negative) Urine Blood Trace H (Negative) U Epithel Cells (Auto) 10-20 H (0-5) /lpf Diagnostic Findings Head CT 10/02/21 11:[address] DOSE: 614.27 mGy.cm HISTORY: difficulty walking weakness TECHNIQUE: Multiaxial CT images of the head were performed without the use of intravenous contrast. Automated exposure control was utilized for this study. A dose lowering technique was utilized adhering to the principles of ALARA. Comparison: Head CT 10/16/2018. Findings: Minimal chronic mucosal thickening within the right maxillary sinus. The mastoid air cells are clear. The calvarium and skull base are intact. The ventricles and sulci are within normal limits. There is no mass, hematoma, m idline shift, or acute infarct. A few scattered patchy areas of hypodensity within the periventricular and subcortical white matter of the supratentorial brain are again noted. These are similar to prior study and therefore favor microvascular ischemic change. A demyelinating disease or Lyme disease could also have a similar appearance in the appropriate clinical setting. Impression: 1. No significant change compared to the prior study. No acute intracranial abnormality.. 2. A few scattered patchy areas of hypodensity within the periventricular and subcortical white matter of the supratentorial brain are again noted. These are similar to prior study and therefore favor microvascular ischemic change. A demyelinating disease or Lyme disease could also have a similar appearance in the appropriate clinical setting. ACT 112: Negative or not required by law. Electronically signed by: Alexis Hermosillo M.D. 10/02/2021 11:52 AM Chest CTA 10/02/21 12:10 CT ANGIOGRAM OF THE CHEST CLINICAL HISTORY: Generalized weakness. COMPARISON STUDY: Chest CT dated 12/28/2019. Chest x-ray dated 08/24/2021. CT of the lumbar spine dated 06/22/2021. TECHNIQUE: Following the IV administration of 120 cc of Optiray 320, CT angiogram of the chest was performed from the upper abdomen to the thoracic inlet utilizing the pulmonary embolus protocol. Images are reviewed in the axial, sagittal, and coronal planes. 3-D MIPS images are created and assessed. IV contrast was administered without complication. A dose lowering technique was utilized adhering to the principles of ALARA. CT DOSE: 293.80 mGycm FINDINGS: Thyroid: Imaged portions of the thyroid gland are normal in size and attenuation. Thoracic aorta: There is atherosclerotic calcification of the thoracic aorta, which is normal in caliber and demonstrates standard 3-vessel arch anatomy. No dissection is seen. Pulmonary vasculature: The pulmonary trunk is normal in caliber. There are no filling defects identified in main, lobar, or segmental pulmonary branches to suggest pulmonary embolus. Heart: The heart is enlarged and without pericardial effusion. The coronary arteries are densely calcified. Lungs and pleural spaces: Emphysematous change is noted. Diffuse intralobular septal thickening is seen throughout both lungs. There are small pleural effusions, right larger than left with bibasilar consolidation. Groundglass change is seen throughout both lungs. The trachea and central airways are clear. There are scattered calcified granulomas. Mediastinum: There is no mediastinal lymphadenopathy. Eve: Clear. Axillae: There is no axillary lymphadenopathy. Upper abdomen: Partially visualized upper abdominal viscera is within normal limits. Skeletal structures: The skeletal structures are osteopenic. Postoperative change is noted in the upper lumbar spine. There is fracture of the left lamina of L2, seen on axial image #24. Lucency around the left interpedicular screw at L2 suggests loosening. Degenerative change and scoliosis is seen. The thoracic spine. No lytic or blastic bony lesions are seen. IMPRESSION: 1. There is no evidence of pulmonary embolus in the main, lobar, or segmental pulmonary arteries. 2. Cardiomegaly and emphysema with evidence of congestive failure and pulmonary edema. 3. Small pleural effusions with bibasilar consolidation. This likely represents atelectasis. Correlate clinically for evidence of a superimposed pneumonia. 4. A chronic left L2 lamina fracture is again noted. 5. Lucency around the left interpedicular screw at L2 suggests loosening. 5. Additional findings as above. ACT 112: Negative or not required by law. Electronically signed by: Black Orozco M.D. 10/02/2021 1:28 PM Medications Administered Home Medications methotrexate sodium 2.5 mg tablet 10 mg PO WK 10/16/18 [History Confirmed 10/02/21] nifedipine 90 mg tablet,extended release 90 mg PO QAM 10/16/18 [History Confirmed 10/02/21] adalimumab 40 mg/0.4 mL subcutaneous syringe kit (Humira(CF)) 40 mg SQ Q14D ea 05/03/19 [History Confirmed 10/02/21] calcium carbonate 600 mg calcium (1,500 mg) tablet 600 mg PO QAM tab 05/03/19 [History Confirmed 10/02/21] levocetirizine 5 mg tablet (Xyzal) 5 mg PO HS 05/03/19 [History Confirmed 10/02/21] ascorbic acid (vitamin C) 1,000 mg tablet 1 gm PO QAM tab 08/11/19 [History Confirmed 10/02/21] folic acid 1 mg tablet 1 mg PO QAM tab 08/11/19 [History Confirmed 10/02/21] vitamin E succinate 268 mg (400 unit) tablet 400 units PO QAM tab 08/11/19 [History Confirmed 10/02/21] hydroxychloroquine 200 mg tablet 200 mg PO HS tab 12/13/19 [History Confirmed 10/02/21] cholecalciferol (vitamin D3) 50 mcg (2,000 unit) tablet 2,000 units PO QAM 11/20/20 [History Confirmed 10/02/21] famotidine 40 mg tablet 40 mg PO HS 11/20/20 [History Confirmed 10/02/21] ferrous sulfate 325 mg (65 mg iron) tablet 325 mg PO QAM 11/20/20 [History Confirmed 10/02/21] multivitamin 1 tab PO QAM 11/20/20 [History Confirmed 10/02/21] fluconazole 150 mg tablet 150 mg PO Q48H 0 Days #2 tab 04/10/21 [Rx Confirmed 10/02/21] promethazine 25 mg tablet 25 mg PO Q6H PRN #30 tab 04/10/21 [Rx Confirmed 10/02/21] magnesium 250 mg tablet 250 mg PO BID #180 tab 04/16/21 [Rx Confirmed 10/02/21] potassium chloride 10 mEq capsule,extended release 10 meq PO QAM #90 cap 04/16/21 [Rx Confirmed 10/02/21] pantoprazole 40 mg tablet,delayed release (Protonix) 40 mg PO HS #90 tab 08/10/21 [Rx Confirmed 10/02/21] ropinirole 0.25 mg tablet 0.75 mg PO DAILY 90 Days #270 tab 08/10/21 [Rx Confirmed 10/02/21] fluoxetine 20 mg tablet 20 mg PO HS #30 tab 09/14/21 [Rx Confirmed 10/02/21] lorazepam 1 mg tablet 1 mg PO BID PRN #60 tab 09/21/21 [Rx Confirmed 10/02/21] Active Medications Albuterol (Albuterol 0.083% Nebu Soln 3 Ml Vial) 2.5 mg NEB Q6R PRN PRN Reason: dyspnea wheezing Stop: 11/01/21 14:52 Sodium Chloride (Nss 1000ml) 1,000 mls @ 125 mls/hr IV .Q8H DEWARDO Stop: 11/01/21 11:44 Last Admin: 10/02/21 11:54 Dose: 125 mls/hr Documented by: Magnesium Sulfate/Dextrose (Magnesium Sulfate / D5w) 1 gm in 100 mls @ 50 mls/hr IV Q2H STA Stop: 10/02/21 16:55 Sodium Chloride (Nss 1000ml) 1,000 mls @ 125 mls/hr IV .Q8H EDWARDO Stop: 11/01/21 11:44 Last Admin: 10/02/21 11:54 Dose: 125 mls/hr Documented by: [id number] Discontinued Medications Albuterol (Albuterol 0.083% Nebu Soln 3 Ml Vial) 2.5 mg NEB NOW STA Stop: 10/02/21 14:46 Last Admin: 10/02/21 14:59 Dose: 2.5 mg Documented by: [id number] Magnesium Sulfate/Dextrose (Magnesium Sulfate / D5w) 1 gm in 100 mls @ 100 mls/hr IV Q1H EDWARDO Stop: 10/02/21 14:19 Last Admin: 10/02/21 14:45 Dose: 100 mls/hr Documented by: [id number] Infusion: 10/02/21 14:44 Dose: 0 mls/hr Documented by: [id number] Admin: 10/02/21 12:38 Dose: 100 mls/hr Documented by: [id number] Ioversol (Optiray 320 125ml) 120 ml IV ONCE ONE Stop: 10/02/21 13:14 Last Admin: 10/02/21 13:14 Dose: 120 ml Documented by: [id number] Potassium Chloride (Potassium Chloride Crtab 20 Meq Tabcr) 40 meq PO NOW STA Stop: 10/02/21 13:54 Last Admin: 10/02/21 14:44 Dose: 40 meq Documented by: [id number] ECG Additional Comments: Sinus tachycardia with Premature supraventricular complexes Septal infarct (cited on or before 21-MAY-2002) Abnormal ECG When compared with ECG of 06-APR-2021 05:44, Nonspecific T wave abnormality now evident in Lateral leads Code Status & VTE Plan Code Status CODE: DNR/DNI VTE: SCDs, Lovenox 30mg sub q q24 VTE Prophylaxis Plan VTE Prophylaxis will be ordered: Yes Supervising Physician Co-Signing Physician Notes Patient was seen and examined independently I discussed the case with Lars BRAN I reviewed pertinent past medical social family history and also the plan of care and agree with the plan of care. Patient presents with significant electrolyte abnormalities with a history of similar issues in the past. Patient has a low BMI of 21 body weight of 118 reportedly has a poor appetite at home last few months since spinal surgery in spring. She is hypokalemic to 3.2 hypomagnesemic to 0.4 and has low calcium both serum and ionized she has a history of low iron level mild to moderate protein malnutrition likely pointing to all nutritional deficiencies. We will repeat the patient in a robust manner Physical exam other than tremulousness and anxiety is nondescript Any exceptions will be noted below PG Care Time/CCT Total # of Minutes Spent Total Time Spent with Patient: Total time spent is greater than 50% in coordination of care (as documented) at patient's floor/unit and/or counseling patient: Coding Level of Care Code 82001 Initial Inpt Care Lvl 3 Diagnoses Hypomagnesemia E83.42 Hypocalcemia E83.51 Hypokalemia E87.6 Pulmonary edema J81.0 Chronicity: acute CREST syndrome M34.1 GERD (gastroesophageal reflux disease) K21.9 Restless leg syndrome G25.81 Anxiety F41.9 Smoker F17.200 Hypoxia R09.02 Elevated INR R79.1 Diarrhea R19.7 Poor nutrition E63.9 Leukocytosis D72.829 Mitral regurgitation I34.0 (1) Pulmonary edema Chronicity: acute Qualified Code(s): J81.0 - Acute pulmonary edema
[2021-10-02] MEDS ORDERED: aMILoride HCL 5 MG TAB PO ONE (15:00)
[2021-10-02] MEDS ORDERED: CALCIUM GLUCONATE 1000 MG/60 ML NSS IV ONE (17:12)
--- NOTE | 2021-10-02 18:38 | Electrocardiogram Report ---
Test Reason : Blood Pressure : / mmHG Vent. Rate : 102 BPM Atrial Rate : 102 BPM P-R Int : 114 ms QRS Dur : 068 ms QT Int : 380 ms P-R-T Axes : 076 071 100 degrees QTc Int : 495 ms Poor data quality, interpretation may be adversely affected Sinus tachycardia with Premature supraventricular complexes Possible Old Septal infarct (cited on or before 21-MAY-2002) Diffuse Nonspecific ST and T wave abnormality Abnormal ECG When compared with ECG of 06-APR-2021 05:44, No significant change Confirmed by Hayes Thomas ([id number]) on 10/02/2021 6:37:31 PM Referred By: REFERRED SELF Confirmed By:Hayes Thomas
[2021-10-02] MEDS ORDERED: LACTATED RINGER'S 1,000 ML IV ONE (20:30)
[2021-10-02] MEDS ORDERED: PROMETHAZINE HCL 25 MG TAB PO PRN (20:30)
[2021-10-02] MEDS ORDERED: CALCIUM GLUCONATE 10% 3,000 MG in 0.9 % SODIUM CHLORIDE 100 ML IV ONE (20:30)
[2021-10-02] MEDS ORDERED: POLYETHYLENE (MIRALAX) 17 GM PACK PO PRN (20:30)
[2021-10-02] MEDS: FLUoxetine HCL 20 MG CAP PO SCH (22:31)
[2021-10-02] MEDS: CETIRIZINE HCL 10 MG TABLET PO SCH (22:31)
[2021-10-02] MEDS: FAMOTIDINE 40 MG TABLET PO SCH (22:32)
[2021-10-02] MEDS: HYDROXYCHLOROQUINE SULFATE 200 MG TAB PO SCH (22:32)
[2021-10-02] MEDS: rOPINIRole HCL 0.25 MG TABLET PO SCH (22:33)
[2021-10-02] MEDS: ENOXAPARIN INJ 30 MG/0.3 ML SYR SQ SCH (23:23)
[2021-10-03 04:57] LABS: Basophils # (auto) 0.04 K/uL (0-0.2); Basophils % (auto) 0.3 %; Hematocrit (blood only) 28.3 % (37-47); Hemoglobin 9.4 g/dL (12.0-16.0); Immature Granulocytes # (auto) 0.06 K/uL (0.00-0.02); Immature Granulocytes % (auto) 0.4 %; Lymphocytes # (auto) 1.55 K/uL (1.2-3.4); Lymphocytes % (auto) 11.3 %; Mean Corpuscular Hemoglobin 28.8 pg (25-34); Mean Corpuscular Hgb Conc 33.2 g/dL (32-36); Mean Corpuscular Volume 86.8 fL (80-100); Mean Platelet Volume 9.5 fL (7.4-10.4); Monocytes # (auto) 1.33 K/uL (0.11-0.59); Monocytes % (auto) 9.7 %; Neutrophils # (auto) 10.73 K/uL (1.4-6.5); Neutrophils % (auto) 78.3 %; Platelet Count 279 K/uL (130-400); RDW Coefficient of Variation 17.1 % (11.5-14.5); RDW Standard Deviation 53.6 fL (36.4-46.3); Red Blood Count 3.26 M/uL (4.2-5.4); White Blood Count 13.71 K/uL (4.8-10.8)
[2021-10-03 05:04] LABS: INR 1.1 (0.9-1.1); Prothrombin Time 11.4 Seconds (9.0-12.0)
[2021-10-03 05:34] LABS: BUN Creatinine Ratio 10.6 (10-20); Calcium 6.8 mg/dl (8.5-10.1); Creatinine Clr Calc Pharmacy 54.7 ml/min; Est GFR (Non-African American) 76.8 ml/min; Potassium 3.6 mmol/L (3.5-5.1)
[2021-10-03 05:41] LABS: Ferritin 98.5 ng/ml (8-388); Phosphorus 3.3 mg/dl (2.5-4.9); Thyroid Stimulating Hormone 0.538 uIu/ml (0.300-4.500)
[2021-10-03] MEDS: SODIUM CHLORIDE 0.9% 1000ML 1,000 ML IV SCH (07:47)
[2021-10-03] MEDS: LORazepam 1 MG TAB PO PRN ×2 (08:00→20:22)
[2021-10-03] MEDS ORDERED: Influenza Vaccine-High Dose (Fluzone-HD) PF 65+ 0.7 ML SYR IM ONE (08:00)
[2021-10-03] MEDS ORDERED: PNEUMOCOCCAL Polysaccharide Vaccine 25mcg/0.5mL vial/Syr IM ONE (08:00)
[2021-10-03] MEDS ORDERED: NIFEdipine EXTENDED REL 30 MG TABCR PO SCH (09:00)
[2021-10-03] MEDS: FERROUS SULFATE 325 MG TAB PO SCH (09:43)
[2021-10-03] MEDS: FOLIC ACID 1 MG TAB PO SCH (09:43)
--- NOTE | 2021-10-03 10:43 | XCELERA ---
[id number]
[2021-10-03] MEDS ORDERED: CALCIUM GLUCONATE 10% 2,000 MG in SODIUM CHLORIDE 0.9% 50 ML IV ONE (12:00)
[2021-10-03] MEDS ORDERED: POTASSIUM CHLORIDE CRTAB 20 MEQ TABCR PO STA (12:01)
[2021-10-03] MEDS ORDERED: FUROSEMIDE 40 MG/4 ML VIAL IV STA (12:15)
[2021-10-03] MEDS ORDERED: MAGNESIUM SULFATE / D5W 1 GM/100 ML BAG IV ONE (12:15)
[2021-10-03] MEDS ORDERED: IRON SUCROSE 200 MG in 0.9 % SODIUM CHLORIDE 100 ML IV ONE (12:30)
--- NOTE | 2021-10-03 12:36 | Hospitalist Progress Note ---
Date of Service October 03, 2021 Assessment & Plan (1) Diarrhea: Plan: Acute on chronic issue: Patient has previously followed with GI with colonoscopy in 2015 with biopsies that were negative - Currently resolved with self treatment of Imodium at home - Clinically intravascular depleted - nutritional status poor at baseline - If diarrhea continue consider 10/03- resolved- follow- will be difficult to continue oral magnesium if exacerbating her diarrhea (2) Hypomagnesemia: Plan: Magnesium 0.4 on admission- secondry to diarrhea and poor nutrtional intake - 2GM given in EMD- follow with 3 GM inpatient for total of 5GM - Mag level in the morning - control diarrhea - Continue to support and keep ~2.0 - follow with diuresis (3) Hypocalcemia: Plan: Serum 5.2 - corrected 6.24 - ionized 0.65- replete 1GM in EMD - continue with another 3 GM calc gluconate in patient - nutritional support and replace - Continue to replete today 10/03- with reabsorption will likely need to continue (4) Hypokalemia: Plan: Replete as above - stable this morning- 40 meq now with diuresing (5) Mitral regurgitation: Plan: Mild on last ECHO with preserved EF - ? worsening with tachycardia and low albumin - Support as above - and follow - Diurese today goal -500 ml - initiate diuretic management- convert to oral likely tomorrow - No acute decompensation will need follow up as outpatient - if acutely decompensates JOSIAH in house - Not febrile- WBC downtrended with euvolemia - No ischemic complaints (6) Pulmonary edema: Plan: Likely related to her HR and poor respiratory effort- and likely undiagnosed COPD and ? RA component - will diurese with amiloride x1 dose now - Albuterol neb now and then prn - 10/03- elevated RVSP with worsening of Mitral Valve- diurese with 10mg IV lasix now and again tonight- will increase dose if poor response (7) CREST syndrome: Plan: Follows with rheumatology - on DMARDS (8) GERD (gastroesophageal reflux disease): Plan: Continue famotidine - Hold PPI until MG increased (9) Restless leg syndrome: Plan: Continue ropinrole (10) Anxiety: Plan: Continue PRN ativan - ? underlying eating disorder (11) Smoker: Plan: Continued smoker - possibly with undiagnosed COPD - smoking cessation (12) Hypoxia: Plan: As above- follow respiratory efforts with diuresing, repleting electrolytes - mild pulmonary edema- ECHO for tomorrow - As above (13) Elevated INR: Plan: Likely related to poor nutrion in the setting of normal LFTs and normal bili, and alk po4 - 1.4- check in morning if >1.5 may need vitamin K - Resolved 10/03 INR 1.1 (14) Poor nutrition: Plan: As above- nutritional assessment - evaluate for oral supplements - ? eating habits - follow PO4 for refeeding - Thiamine 200mg IV daily - As above - ? eating disorder - this is also likely relating to her mitral valve dysfunction (15) Leukocytosis: Plan: No evidence of infection noted- PCT negative - likely hemoconcentrated intravascular - LR overnight and follow - UA negative (16) Iron (Fe) deficiency anemia: Plan: Venofer today 200mg IV - continue with oral supplementation - re-evaluate in morning Admission and Anticipated Discharge Date Admission Date: October 02, 2021 Supervising Physician Co-Signing Physician Notes Patient was seen and examined independently I discussed the case with Lars BRAN I reviewed pertinent past medical social family history and also the plan of care and agree with the plan of care. Patient presents with significant electrolyte abnormalities with a history of similar issues in the past. Patient has a low BMI of 21 body weight of 118 reportedly has a poor appetite at home last few months since spinal surgery in spring. She is hypokalemic to 3.2 hypomagnesemic to 0.4 and has low calcium both serum and ionized she has a history of low iron level mild to moderate protein malnutrition likely pointing to all nutritional deficiencies. We will repeat the patient in a robust manner Physical exam other than tremulousness and anxiety is nondescript Any exceptions will be noted below Subjective HD #1 admission for multiple electrolyte derangement secondary to poor nutritional intake and diarrhea. The patient's diarrhea is resolved and she voices that she had a normal BM this morning. She tolerated 3/4 of her breakfast. Her tremors and discoordinate is markedly better. Her Magnesium level is increased to 2.0 today, K 3.6, PO4 3.3, iCA- remains low at 0.89 but to be expected. Her iron levels are moderately low at FE 15 and 5% sat. Her breathing is improved since yesterday, she remains on 2-3 LNC supplemental for SPO2 >92%. She now appears intravascular repleted with adequate urine output and her mouth is not dry/chaffed or cracked as it was yesterday. Patient voices she feels so much better than yesterday. Repeated her ECHO today for her history of MR and her nutritional status. Her ECHO today reveals severe worsening of her Mitral Valve and elevated RVSP. Will diurese her today gently, continue to replace her electrolytes, keep patient euvolemic to slightly hypovolemic. Will need outpatient follow up of her valvular dysfunction and nutritional support. Review of Systems Review of Systems: REVIEW OF SYSTEMS: Constitutional: No fever, sweats or chills Eyes: No diplopia, no worsening or blurred vision ENT: (+) difficulty hearing wears hearing aids, no trouble swallowing Respiratory: (+) dyspnea at rest or on exertion, wheezing, No cough, sputum, Cardiovascular: No chest pain, tightness or palpitations Abdomen: (+) diarrhea , No pain, nausea, vomiting, or constipation Musculoskeletal: No joint pain, calf pain, swelling Neurologic: still remains with lower extremity tremors easy muscle fatigue, Psychiatric: No anxiety or depression Skin: No rash or itch Physical Exam Physical Exam: PHYSICAL EXAM: General: awake, alert, anxious Head: Normocephalic, atraumatic ENT: PERRLA, EOMI, no pharyngeal exudate, mucous membranes moist Neuro: AAO x 3, speech clear and appropriate, strength intact bilaterally 5/5, sensation intact and equal all extremities and dermatomes, no pronator drift, coordination improved, remains with lower extremity tremor and early fatigue, her tetany has improved. Chest: equal rise and fall of the chest, no accessory muscle use, no heaves or thrills, scattered crackles on auscultation, on 2lnc, Cardiac: Regular rate and rhythm, telemetry reviewed- ST, skin warm dry, cap refill <3 seconds, peripheral pulses +2 no JVD, Grade III systolic murmur, no JVD,+2 edema to ankles GI: NABS x 4 quadrants, soft, nontender to palpation, no rebound, guarding or tenderness : Spontaneously voiding, no pain, no CVA tenderness, Extremities: Normal inspection, no peripheral edema or erythema, calfs nontender to palpation Psych: anxious Skin: no rash or erythema Results & Data Results & Data ([facility]) Vital Signs (Past 12 Hours) Vital Signs Temp Pulse Resp BP Pulse Ox 10/03/21 04:00 36.8 C 87 22 112/71 95 Laboratory Results Abnormal lab results 10/02/21 10/02/21 10/03/21 Range/Units 12:33 15:40 04:47 WBC 13.71 H (4.8-10.8) K/uL RBC 3.26 L (4.2-5.4) M/uL Hgb 9.4 L (12.0-16.0) g/dL Hct 28.3 L (37-47) % RDW Std Deviation 53.6 H (36.4-46.3) fL RDW Coeff of Chary 17.1 H (11.5-14.5) % Neut # (Auto) 10.73 H (1.4-6.5) K/uL Swain # (Auto) 1.33 H (0.11-0.59) K/uL Immature Gran # (Auto) 0.06 H (0.00-0.02) K/uL Chloride (98-107) mmol/L Carbon Dioxide (21-32) mmol/L Calcium (8.5-10.1) mg/dl Ionized Calcium 0.65 L* (1.12-1.32) mmol/L Iron (35-150) mcg/dl Transferrin % Sat (15-50) % Urine Protein 1+ H (Negative) Urine Ketones 1+ H (Negative) Urine Blood Trace H (Negative) U Epithel Cells (Auto) 10-20 H (0-5) /lpf 10/03/21 10/03/21 Range/Units 04:47 04:47 WBC (4.8-10.8) K/uL RBC (4.2-5.4) M/uL Hgb (12.0-16.0) g/dL Hct (37-47) % RDW Std Deviation (36.4-46.3) fL RDW Coeff of Chary (11.5-14.5) % Neut # (Auto) (1.4-6.5) K/uL Swain # (Auto) (0.11-0.59) K/uL Immature Gran # (Auto) (0.00-0.02) K/uL Chloride 108 H (98-107) mmol/L Carbon Dioxide 20 L (21-32) mmol/L Calcium 6.8 L D (8.5-10.1) mg/dl Ionized Calcium 0.89 L (1.12-1.32) mmol/L Iron 15 L (35-150) mcg/dl Transferrin % Sat 5 L (15-50) % Urine Protein (Negative) Urine Ketones (Negative) Urine Blood (Negative) U Epithel Cells (Auto) (0-5) /lpf Diagnostic Findings ECHO completed: Severe MR and moderate pulmonary HTN Medications Administered Cetirizine HCl (Cetirizine Hcl 10 Mg Tablet) 5 mg PO [facility] Stop: 11/01/21 20:59 Last Admin: 10/02/21 22:31 Dose: 5 mg Documented by: [id number] Enoxaparin Sodium (Enoxaparin Inj 30 Mg/0.3 Ml Syr) 30 mg SQ Q24H EDWARDO Stop: 11/01/21 20:59 Last Admin: 10/02/21 23:23 Dose: 30 mg Documented by: [id number] Famotidine (Famotidine 40 Mg Tablet) 40 mg PO [facility] Stop: 11/01/21 20:59 Last Admin: 10/02/21 22:32 Dose: 40 mg Documented by: [id number] Ferrous Sulfate (Ferrous Sulfate 325 Mg Tab) 325 mg PO [facility] Stop: 11/02/21 08:59 Last Admin: 10/03/21 09:43 Dose: 325 mg Documented by: [id number] Fluoxetine HCl (Fluoxetine Hcl 20 Mg Cap) 20 mg PO [facility] Stop: 11/01/21 20:59 Last Admin: 10/02/21 22:31 Dose: 20 mg Documented by: [id number] Folic Acid (Folic Acid 1 Mg Tab) [facility] Stop: 11/02/21 08:59 Last Admin: 10/03/21 09:43 Dose: 1 mg Documented by: [id number] Hydroxychloroquine Sulfate (Hydroxychloroquine Sulfate 200 Mg Tab) 200 mg PO [facility] Stop: 11/01/21 20:59 Last Admin: 10/02/21 22:32 Dose: 200 mg Documented by: [id number] Lorazepam (Lorazepam 1 Mg Tab) 1 mg PO BID PRN PRN Reason: anxiety Stop: 11/01/21 20:40 Last Admin: 10/03/21 08:00 Dose: 1 mg Documented by: [id number] Nifedipine (Nifedipine Extended Rel 30 Mg Tabcr) 90 mg PO QAM EDWARDO Stop: 11/02/21 08:59 Last Admin: 10/03/21 09:43 Dose: 90 mg Documented by: [id number] Ropinirole HCl (Ropinirole Hcl 0.25 Mg Tablet) 0.75 mg PO HS EDWARDO Stop: 11/01/21 20:59 Last Admin: 10/02/21 22:33 Dose: 0.75 mg Documented by: [id number] Discontinued Medications Albuterol (Albuterol 0.083% Nebu Soln 3 Ml Vial) 2.5 mg NEB NOW STA Stop: 10/02/21 14:46 Last Admin: 10/02/21 14:59 Dose: 2.5 mg Documented by: [id number] Amiloride HCl (Amiloride Hcl 5 Mg Tab) 5 mg PO ONE ONE Stop: 10/02/21 15:01 Last Admin: 10/02/21 15:46 Dose: 5 mg Documented by: [id number] Calcium Gluconate (Calcium Gluconate 1000 Mg/60 Ml Nss) Confirm Administered Dose 1,000 mg IV .STK-MED ONE Stop: 10/02/21 17:13 Last Admin: 10/02/21 17:30 Dose: Not Given Documented by: [id number] Sodium Chloride (Nss 1000ml) 1,000 mls @ 125 mls/hr IV .Q8H EDWARDO Stop: 11/01/21 11:44 Last Admin: 10/03/21 07:47 Dose: Not Given Documented by: [id number] Infusion: 10/03/21 07:47 Dose: 0 mls/hr Documented by: [id number] Admin: 10/02/21 11:54 Dose: 125 mls/hr Documented by: [id number] Magnesium Sulfate/Dextrose (Magnesium Sulfate / D5w) 1 gm in 100 mls @ 100 mls/hr IV Q1H EDWARDO Stop: 10/02/21 14:19 Last Infusion: 10/02/21 15:50 Dose: 0 mls/hr Documented by: [id number] Admin: 10/02/21 14:45 Dose: 100 mls/hr Documented by: [id number] Infusion: 10/02/21 14:44 Dose: 0 mls/hr Documented by: [id number] Admin: 10/02/21 12:38 Dose: 100 mls/hr Documented by: [id number] Calcium Gluconate () 1,000 mg in 60 mls @ 240 mls/hr IV NOW STA Stop: 10/02/21 12:34 Last Infusion: 10/02/21 17:42 Dose: 0 mls/hr Documented by: [id number] Admin: 10/02/21 17:27 Dose: 240 mls/hr Documented by: [id number] Thiamine HCl 200 mg/ Sodium (Chloride) 52 mls @ 208 mls/hr IV NOW STA Stop: 10/02/21 14:51 Last Infusion: 10/02/21 16:29 Dose: 0 mls/hr Documented by: [id number] Admin: 10/02/21 15:46 Dose: 208 mls/hr Documented by: [id number] Magnesium Sulfate/Dextrose (Magnesium Sulfate / D5w) 1 gm in 100 mls @ 50 mls/hr IV Q2H STA Stop: 10/02/21 16:55 Last Infusion: 10/02/21 17:50 Dose: 0 mls/hr Documented by: [id number] Admin: 10/02/21 15:50 Dose: 50 mls/hr Documented by: [id number] Magnesium Sulfate/Dextrose (Magnesium Sulfate / D5w) 1 gm in 100 mls @ 50 mls/hr IV Q2H EDWARDO Stop: 10/02/21 22:14 Last Infusion: 10/02/21 22:25 Dose: 0 mls/hr Documented by: [id number] Admin: 10/02/21 20:13 Dose: 50 mls/hr Documented by: [id number] Infusion: 10/02/21 20:13 Dose: 50 mls/hr Documented by: [id number] Admin: 10/02/21 18:13 Dose: 50 mls/hr Documented by: [id number] Lactated Ringer's (Lr) 1,000 mls @ 80 mls/hr IV .[id number] ONE Stop: 10/03/21 08:59 Last Admin: 10/02/21 20:45 Dose: 80 mls/hr Documented by: [id number] Calcium Gluconate 3,000 mg/ (Sodium Chloride) 130 mls @ 65 mls/hr IV NOW ONE Stop: 10/02/21 22:29 Last Infusion: 10/02/21 23:10 Dose: 0 mls/hr Documented by: [id number] Admin: 10/02/21 21:06 Dose: 65 mls/hr Documented by: [id number] Influenza Virus Vaccine (Influenza Vaccine-High Dose (Fluzone-Hd) Pf 65+ 0.7 Ml Syr) 0.7 ml IM .ONCE ONE Stop: 10/03/21 08:01 Last Admin: 10/03/21 09:45 Dose: 0.7 ml Documented by: [id number] Ioversol (Optiray 320 125ml) 120 ml IV ONCE ONE Stop: 10/02/21 13:14 Last Admin: 10/02/21 13:14 Dose: 120 ml Documented by: [id number] Pneumococcal Polyvalent Vaccine (Pneumococcal Polysaccharide Vaccine 25mcg/0.5ml Vial/Syr) 25 mcg IM .ONCE ONE Stop: 10/03/21 08:01 Last Admin: 10/03/21 09:44 Dose: 25 mcg Documented by: [id number] Potassium Chloride (Potassium Chloride Crtab 20 Meq Tabcr) 40 meq PO NOW STA Stop: 10/02/21 13:54 Last Admin: 10/02/21 14:44 Dose: 40 meq Documented by: [id number] PG Care Time/CCT Total # of Minutes Spent Total Time Spent with Patient: Total time spent is greater than 50% in coordination of care (as documented) at patient's floor/unit and/or counseling patient: Coding Level of Care Code 15394 Subseq Hosp Care Lvl 3 Diagnoses Diarrhea R19.7 Hypomagnesemia E83.42 Hypocalcemia E83.51 Hypokalemia E87.6 Pulmonary edema J81.0 Chronicity: acute CREST syndrome M34.1 GERD (gastroesophageal reflux disease) K21.9 Restless leg syndrome G25.81 Anxiety F41.9 Smoker F17.200 Hypoxia R09.02 Elevated INR R79.1 Poor nutrition E63.9 Leukocytosis D72.829 Mitral regurgitation I34.0 Iron (Fe) deficiency anemia D50.9 (1) Pulmonary edema Chronicity: acute Qualified Code(s): J81.0 - Acute pulmonary edema
[2021-10-03] MEDS ORDERED: METOPROLOL TARTRATE 1 MG/ML VIAL IV ONE ×2 (13:51→14:00)
[2021-10-03] MEDS ORDERED: AMIODARONE 150MG / 100ML D5W IV ONE (13:58)
[2021-10-03] MEDS ORDERED: 0.2 MICRON FILTER SET 1 EA IV ONE (14:00)
[2021-10-03] MEDS ORDERED: AMIODARONE / D5W 150 MG/100 ML BAG IV STA (14:00)
[2021-10-03] MEDS ORDERED: METOPROLOL TARTRATE 1 MG/ML VIAL IV STA (14:00)
[2021-10-03] MEDS ORDERED: LORazepam 0.5 MG/1 ML VIAL IV PRN (14:18)
[2021-10-03 14:20] LABS: Basophils # (auto) 0.04 K/uL (0-0.2); Basophils % (auto) 0.3 %; Hematocrit (blood only) 28.4 % (37-47); Hemoglobin 9.5 g/dL (12.0-16.0); Immature Granulocytes # (auto) 0.05 K/uL (0.00-0.02); Immature Granulocytes % (auto) 0.4 %; Lymphocytes # (auto) 1.09 K/uL (1.2-3.4); Lymphocytes % (auto) 8.3 %; Mean Corpuscular Hemoglobin 29.2 pg (25-34); Mean Corpuscular Hgb Conc 33.5 g/dL (32-36); Mean Corpuscular Volume 87.4 fL (80-100); Mean Platelet Volume 9.8 fL (7.4-10.4); Monocytes # (auto) 1.12 K/uL (0.11-0.59); Monocytes % (auto) 8.6 %; Neutrophils # (auto) 10.76 K/uL (1.4-6.5); Neutrophils % (auto) 82.4 %; Platelet Count 293 K/uL (130-400); RDW Coefficient of Variation 17.1 % (11.5-14.5); RDW Standard Deviation 53.6 fL (36.4-46.3); Red Blood Count 3.25 M/uL (4.2-5.4); White Blood Count 13.06 K/uL (4.8-10.8)
[2021-10-03 14:41] LABS: Calcium 7.2 mg/dl (8.5-10.1); Creatinine Clr Calc Pharmacy 56.1 ml/min; Est GFR (African American) 91.8 ml/min; Est GFR (Non-African American) 79.2 ml/min; Magnesium 1.8 mg/dl (1.8-2.4)
[2021-10-03] MEDS ORDERED: dilTIAZem HCl 5 MG/ML 5 ML VIAL IV STA ×2 (14:45)
[2021-10-03] MEDS ORDERED: STAT IV Infusion **Titration per Protocol STA (14:45)
[2021-10-03] MEDS ORDERED: dilTIAZem HCL 125 MG in DEXTROSE 5% 100 ML IV SCH (15:08)
[2021-10-03] MEDS: THIAMINE HCL 200 MG in SODIUM CHLORIDE 0.9% 50 ML IV SCH (16:41)
[2021-10-03] MEDS: FAMOTIDINE 40 MG TABLET PO SCH (20:12)
[2021-10-03] MEDS: FLUoxetine HCL 20 MG CAP PO SCH (20:12)
[2021-10-03] MEDS: CETIRIZINE HCL 10 MG TABLET PO SCH (20:13)
[2021-10-03] MEDS: rOPINIRole HCL 0.25 MG TABLET PO SCH (20:14)
[2021-10-03] MEDS: HYDROXYCHLOROQUINE SULFATE 200 MG TAB PO SCH (20:16)
[2021-10-03] MEDS: METOPROLOL TARTRATE 25 MG TAB PO SCH (20:17)
[2021-10-03] MEDS: ENOXAPARIN INJ 30 MG/0.3 ML SYR SQ SCH (20:20)
--- NOTE | 2021-10-04 03:21 | Communication Note ---
Date of Service: October 04, 2021 Asked to present to patients bedside multiple times throughout the night as she was requesting to leave. When attempting to discuss with patient her concerns, she notes that she does not feel she is being treated appropriately here and that she wants to go home. She notes that she "wants pretzels and to smoke." Discussed with patient that leaving at this time would be ill advised. Patient did call her and a friend, both of which told the patient that they would not be coming to pick her up from the hospital. Patient still adamant in regards to leaving despite no transportation and recommendations against leaving. Patient is oriented x3 to person, place, and time. She cannot recall her reason for presenting to the hospital, though notes that she "came to the hospital because I have friends who work here." -Will discuss with psychiatry and ask them to evaluate patient. Resident Activity Tracking Resident Involvement: Resident Care Provided and Sales Operations Specialist Coverage Note Care Provided: Adult Hospital Medicine
[2021-10-04 04:57] LABS: Basophils # (auto) 0.06 K/uL (0-0.2); Basophils % (auto) 0.3 %; Eosinophils # (auto) 0.03 K/uL (0-0.5); Eosinophils % (auto) 0.2 %; Hematocrit (blood only) 31.7 % (37-47); Hemoglobin 10.5 g/dL (12.0-16.0); Immature Granulocytes # (auto) 0.08 K/uL (0.00-0.02); Immature Granulocytes % (auto) 0.4 %; Lymphocytes # (auto) 0.64 K/uL (1.2-3.4); Lymphocytes % (auto) 3.5 %; Mean Corpuscular Hemoglobin 29.1 pg (25-34); Mean Corpuscular Volume 87.8 fL (80-100); Mean Platelet Volume 9.6 fL (7.4-10.4); Monocytes # (auto) 1.33 K/uL (0.11-0.59); Monocytes % (auto) 7.3 %; Neutrophils # (auto) 16.06 K/uL (1.4-6.5); Neutrophils % (auto) 88.3 %; Platelet Count 328 K/uL (130-400); RDW Standard Deviation 53.3 fL (36.4-46.3); Red Blood Count 3.61 M/uL (4.2-5.4)
[2021-10-04 05:06] LABS: INR 1.1 (0.9-1.1); Prothrombin Time 10.9 Seconds (9.0-12.0)
[2021-10-04 05:12] LABS: Mean Corpuscular Hgb Conc 33.1 g/dL (32-36)
[2021-10-04 05:14] LABS: BUN Creatinine Ratio 17.6 (10-20); Calcium 7.4 mg/dl (8.5-10.1); Creatinine Clr Calc Pharmacy 48.6 ml/min; Est GFR (African American) 77.2 ml/min; Est GFR (Non-African American) 66.6 ml/min; Potassium 4.6 mmol/L (3.5-5.1)
[2021-10-04 05:15] LABS: Phosphorus 2.8 mg/dl (2.5-4.9)
[2021-10-04] MEDS: METOPROLOL TARTRATE 25 MG TAB PO SCH ×3 (06:03→22:34)
--- NOTE | 2021-10-04 10:06 | Electrocardiogram Report ---
Test Reason : Blood Pressure : / mmHG Vent. Rate : 076 BPM Atrial Rate : 076 BPM P-R Int : 130 ms QRS Dur : 082 ms QT Int : 414 ms P-R-T Axes : 086 077 075 degrees QTc Int : 465 ms Normal sinus rhythm Possible Left atrial enlargement Anterior infarct (cited on or before 21-MAY-2002) Abnormal ECG When compared with ECG of 03-OCT-2021 14:35, (unconfirmed) Sinus rhythm has replaced Atrial flutter Vent. rate has decreased BY 59 BPM Confirmed by Chris Brown ([id number]) on 10/04/2021 10:05:59 AM Referred By: REFERRED SELF Confirmed By:Chris Brown
--- NOTE | 2021-10-04 10:26 | Electrocardiogram Report ---
Test Reason : Blood Pressure : / mmHG Vent. Rate : 159 BPM Atrial Rate : 300 BPM P-R Int : 000 ms QRS Dur : 080 ms QT Int : 320 ms P-R-T Axes : 000 083 093 degrees QTc Int : 520 ms Poor data quality, interpretation may be adversely affected Atrial flutter with variable A-V block Septal infarct (cited on or before 21-MAY-2002) Abnormal ECG When compared with ECG of 02-OCT-2021 11:16, Atrial flutter has replaced Sinus rhythm Vent. rate has increased BY 57 BPM Confirmed by Chris Brown ([id number]) on 10/04/2021 10:25:53 AM Referred By: REFERRED SELF Confirmed By:Chris Brown
--- NOTE | 2021-10-04 10:27 | Electrocardiogram Report ---
Test Reason : Blood Pressure : / mmHG Vent. Rate : 148 BPM Atrial Rate : 153 BPM P-R Int : 000 ms QRS Dur : 124 ms QT Int : 346 ms P-R-T Axes : 000 092 086 degrees QTc Int : 543 ms Wide QRS tachycardia , may be LBBB aberrancy Rightward axis Abnormal ECG When compared with ECG of 03-OCT-2021 13:43, (unconfirmed) Wide QRS tachycardia has replaced Atrial flutter Confirmed by Chris Brown ([id number]) on 10/04/2021 10:27:11 AM Referred By: REFERRED SELF Confirmed By:Chris Brown
--- NOTE | 2021-10-04 10:27 | Electrocardiogram Report ---
Test Reason : Blood Pressure : / mmHG Vent. Rate : 135 BPM Atrial Rate : 270 BPM P-R Int : 000 ms QRS Dur : 078 ms QT Int : 342 ms P-R-T Axes : 270 070 063 degrees QTc Int : 513 ms Atrial flutter with 2:1 A-V conduction Anteroseptal infarct , age undetermined Abnormal ECG When compared with ECG of 03-OCT-2021 13:46, (unconfirmed) Atrial flutter has replaced Wide QRS tachycardia Confirmed by Chris Brown ([id number]) on 10/04/2021 10:27:24 AM Referred By: REFERRED SELF Confirmed By:Chris Brown
--- NOTE | 2021-10-04 10:33 | Psychiatric Consultation ---
Date of Consultation October 04, 2021 Impression / Recommendations Impression 66 yo woman with history of possible restrictive eating disorder vs malnutrition from other causes, chronic back pain, mitral valve prolapse, CREST syndrome, tobacco use, and diarrhea presented with symptoms of malnutrition, diarrhea and cardiac changes. Psychiatry was consulted for decision making capacity when patient requested to discharge in the middle of the night. At this time the patient is felt to have decision making capacity to leave the hospital against medical advice if she so choses. She does not have any symptoms of imminent risk of harm to self or others or risk for inability to safely care for herself to meet criteria for nor necessitate involuntary psychiatric treatment at this time. Assessment of Decision-Making Capacity Criterion Patient Task X Communicates a choice Patient is able to clearly indicate preferred treatment option in a clear and consistent manner X Understands information provided Patient understands her condition and treatment options X Appreciates consequences Patient shows appropriately nuanced appreciation for the risks & benefits associated with available treatment options, including no treatment X Manipulates relevant information Patient able to rationally weigh risks & benefits, as well as offer reasons for her decision (1) Mitral regurgitation: (2) Leukocytosis: (3) Poor nutrition: (4) Diarrhea: (5) Anxiety: -Patient has decision making capacity about decision to leave AMA at this time -She does not meet criteria for involuntary psychiatric treatment or 302 status Risk Factors Assessment Previous Attempt: No Previous Psychiatric Hospitalization: No Hopelessness: No Protective Factors Assessment : Yes Stable Relationships: Yes Supportive Family: Yes Good Rapport with Provider: Yes Psych History Identifying Data 66 yo woman with history of possible restrictive eating disorder vs malnutrition from other causes, chronic back pain, mitral valve prolapse, CREST syndrome, tobacco use, and diarrhea presented with symptoms of malnutrition, diarrhea and cardiac changes. Psychiatry was consulted for decision making capacity when patient requested to discharge in the middle of the night. Chief Complaint "I'm sick of being in the hospital, I hate hospitals and I want to go back home". History of Present Illness Qian is accompanied by her , Chris, this morning. She is fully oriented and explain her recent medical history and why she has been receiving treatment in the hospital. Discussed the challenges of having more physical illnesses in the last year including significant back pain that did not respond to surgery with full return to function and rather continues to interfere with her ability to do daily activities such as cooking. She used to be an avid runner which she can no longer do and she had to retire from a job she loved. She has plans to follow-up with the pain clinic soon and is hopeful this and potentially another surgery can help her regain more function. She denies any significant mood symptoms, psychiatric history nor eating disorder symptoms. She denies SI and HI. She reiterates her desire to leave the hospital due to not liking hospitals and wanting to be at home. She describes being sick of being in hospitals after the procedures she has needed over the last year and she wishes to be at home with her and where she can try to cook and walk around the neighborhood. She understands that her hospitalist team is concerned about heart and nutritional status and would like her to continue receiving treatment. She understands that if she goes home she could develop "shakiness again and it might not go away next time" as well as potential for more damage to her heart. She understands she could potentially have a medical emergency like a heart attack or even . She states she would reach out to her PCP or call 911 if she experienced a medical emergency at home. She can process the risks, benefits and alternatives with me. Past Psychiatric History Previous Psych History: none Allergies Allergy/AdvReac Type Severity Reaction Status Date / Time gabapentin Allergy Unknown Feet Verified 10/02/21 12:58 swelling (with higher doses) grass pollen Allergy Unknown Hay fever Verified 10/02/21 12:58 mold Allergy Unknown Hay fever Verified 10/02/21 12:58 spironolactone Allergy Unknown Feet Verified 10/02/21 12:58 swelling Penicillins AdvReac Unknown Yeast Verified 10/02/21 12:58 infection Home Medications Medication Instructions Recorded Confirmed Type methotrexate sodium 2.5 mg tablet 10 mg PO WK 10/16/18 10/02/21 History nifedipine 90 mg tablet,extended 90 mg PO QAM 10/16/18 10/02/21 History release adalimumab 40 mg/0.4 mL 40 mg SQ Q14D ea 05/03/19 10/02/21 History subcutaneous syringe kit (Humira(CF)) calcium carbonate 600 mg calcium 600 mg PO QAM tab 05/03/19 10/02/21 History (1,500 mg) tablet levocetirizine 5 mg tablet (Xyzal) 5 mg PO HS 05/03/19 10/02/21 History ascorbic acid (vitamin C) 1,000 mg 1 gm PO QAM tab 08/11/19 10/02/21 History tablet folic acid 1 mg tablet 1 mg PO QAM tab 08/11/19 10/02/21 History vitamin E succinate 268 mg (400 400 units PO QAM tab 08/11/19 10/02/21 History unit) tablet hydroxychloroquine 200 mg tablet 200 mg PO HS tab 12/13/19 10/02/21 History cholecalciferol (vitamin D3) 50 2,000 units PO QAM 11/20/20 10/02/21 History mcg (2,000 unit) tablet famotidine 40 mg tablet 40 mg PO HS 11/20/20 10/02/21 History ferrous sulfate 325 mg (65 mg 325 mg PO QAM 11/20/20 10/02/21 History iron) tablet multivitamin 1 tab PO QAM 11/20/20 10/02/21 History fluconazole 150 mg tablet 150 mg PO Q48H 0 Days #2 tab 04/10/21 10/02/21 Rx promethazine 25 mg tablet 25 mg PO Q6H PRN #30 tab 04/10/21 10/02/21 Rx magnesium 250 mg tablet 250 mg PO BID #180 tab 04/16/21 10/02/21 Rx potassium chloride 10 mEq 10 meq PO QAM #90 cap 04/16/21 10/02/21 Rx capsule,extended release pantoprazole 40 mg tablet,delayed 40 mg PO HS #90 tab 08/10/21 10/02/21 Rx release (Protonix) ropinirole 0.25 mg tablet 0.75 mg PO DAILY 90 Days #270 tab 08/10/21 10/02/21 Rx fluoxetine 20 mg tablet 20 mg PO HS #30 tab 09/14/21 10/02/21 Rx lorazepam 1 mg tablet 1 mg PO BID PRN #60 tab 09/21/21 10/02/21 Rx Substance Abuse History uses cigarettes Personal History Living Arrangements: Home Employment Status: Retired Marital Status: Beliefs That Will Affect Care: None Patient History Medical History Allergic rhinitis Anxiety Arthritis Asthma well controlled per pt Chronic obstructive pulmonary disease well controlled per pt > no inh CREST syndrome + raynaud's symptoms, follows with Dr. Bradly Ahuja ([place]) Degenerative disc disease Depression Endometriosis GERD (gastroesophageal reflux disease) Hypertension Lumbar spinal stenosis Restless leg syndrome Rheumatoid arthritis Scleroderma Scoliosis Surgical History History of colonoscopy S/P correction of deviated nasal septum S/P tonsillectomy S/P total abdominal hysterectomy and bilateral salpingo-oophorectomy Family History Mother Dementia Osteoporosis Sister Hypertension Father Myocardial infarction Diet age 50 secondary to myocardial infarction Other Medical history non-contributory Denies family history of Ovarian cancer Prostate cancer Breast cancer Colorectal cancer Social History Smoking Status: Current every day smoker Age Started Using Tobacco: 19; packs per day: 0.5; Cigarettes Per Day: 3; Second Hand Exposure: No; Hx Alcohol Use: Yes Alcohol type: wine Alcohol Intake Frequency Comment: 1-2 alcoholic beverages per day. Hx Substance Use: No Preferred Language: Jamaican Communication Ability: Effective Visual Impairment: No Limitations Hearing Ability: Use of Hearing Aid [employer]kers Required: No Beliefs That Will Affect Care: None marital status: Current Living Situation: Spouse current occupational status: employed current occupation: Working for [employer] Feels Safe at Home: Yes Assistive Devices: Cane and Walker Physical Exam Psychiatric: Orientation: alert and oriented x 3 Apperance: appropriately dressed and appropriately groomed Eye Contact: good eye contact Motor Behavior: no abnormal motor movements Speech: normal rate/rhythm/volume of speech Affect: euthymic affect Mood: + anxious mood (wants to go home); no depressed mood Thought Process: goal directed thought process Thought Content: reality based without delusions Suicidal Thoughts: denies suicidal thoughts Homicidal Thoughts: denies homicidal thoughts Hallucinations: no auditory hallucinations and no visual hallucinations Cognition: recent memory grossly intact, remote memory grossly intact, attention grossly intact and language grossly intact Estimated Intelligence: consistent with education level Insight: + fair insight Judgement: + fair judgement Vital Signs (Past 24 Hours): Last Vital Signs Temp 37 C 10/04/21 00:00 Pulse 70 10/04/21 00:00 Resp 20 10/04/21 00:00 BP 123/73 10/04/21 00:00 Pulse Ox 91 10/04/21 00:00 Review of Systems All systems reviewed & are unremarkable except as noted in HPI & below Results & Data (PSY) Medications Administered Cetirizine HCl (Cetirizine Hcl 10 Mg Tablet) 5 mg PO [facility] Stop: 11/01/21 20:59 Last Admin: 10/03/21 20:13 Dose: 5 mg Documented by: [id number] Admin: 10/02/21 22:31 Dose: 5 mg Documented by: [id number] Enoxaparin Sodium (Enoxaparin Inj 30 Mg/0.3 Ml Syr) 30 mg SQ Q24H [facility] Stop: 11/01/21 20:59 Last Admin: 10/03/21 20:20 Dose: 30 mg Documented by: [id number] Admin: 10/02/21 23:23 Dose: 30 mg Documented by: [id number] Famotidine (Famotidine 40 Mg Tablet) 40 mg PO [facility] Stop: 11/01/21 20:59 Last Admin: 10/03/21 20:12 Dose: 40 mg Documented by: [id number] Admin: 10/02/21 22:32 Dose: 40 mg Documented by: [id number] Ferrous Sulfate (Ferrous Sulfate 325 Mg Tab) 325 mg PO [facility] Stop: 11/02/21 08:59 Last Admin: 10/03/21 09:43 Dose: 325 mg Documented by: [id number] Fluoxetine HCl (Fluoxetine Hcl 20 Mg Cap) 20 mg PO [facility] Stop: 11/01/21 20:59 Last Admin: 10/03/21 20:12 Dose: 20 mg Documented by: [id number] Admin: 10/02/21 22:31 Dose: 20 mg Documented by: [id number] Folic Acid (Folic Acid 1 Mg Tab) 1 mg PO QA [facility] Stop: 11/02/21 08:59 Last Admin: 10/03/21 09:43 Dose: 1 mg Documented by: [id number] Hydroxychloroquine Sulfate (Hydroxychloroquine Sulfate 200 Mg Tab) 200 mg PO [facility] Stop: 11/01/21 20:59 Last Admin: 10/03/21 20:16 Dose: 200 mg Documented by: [id number] Admin: 10/02/21 22:32 Dose: 200 mg Documented by: [id number] Thiamine HCl 200 mg/ Sodium (Chloride) 52 mls @ 208 mls/hr IV QA [facility] Stop: 11/02/21 08:59 Last Infusion: 10/03/21 17:39 Dose: 0 mls/hr Documented by: [id number] Admin: 10/03/21 16:41 Dose: 208 mls/hr Documented by: [id number] Lorazepam (Lorazepam 1 Mg Tab) 1 mg PO BID PRN PRN Reason: anxiety Stop: 11/01/21 20:40 Last Admin: 10/03/21 20:22 Dose: 1 mg Documented by: [id number] Admin: 10/03/21 08:00 Dose: 1 mg Documented by: [id number] Metoprolol Tartrate (Metoprolol Tartrate 25 Mg Tab) 25 mg PO Q8 [facility] Stop: 11/02/21 21:59 Last Admin: 10/04/21 06:03 Dose: 25 mg Documented by: [id number] Admin: 10/03/21 20:17 Dose: 25 mg Documented by: [id number] Ropinirole HCl (Ropinirole Hcl 0.25 Mg Tablet) 0.75 mg PO HS [facility] Stop: 11/01/21 20:59 Last Admin: 10/03/21 20:14 Dose: 0.75 mg Documented by: [id number] Admin: 10/02/21 22:33 Dose: 0.75 mg Documented by: [id number] Coding Level of Care Code 07812 Inpt Consult Level 3 Diagnoses Mitral regurgitation I34.0 Leukocytosis D72.829 Poor nutrition E63.9 Diarrhea R19.7 Anxiety F41.9
--- NOTE | 2021-10-04 11:43 | Hospitalist Progress Note ---
Date of Service October 04, 2021 Assessment & Plan (1) Diarrhea: Plan: Acute on chronic issue: Patient has previously followed with GI with colonoscopy in 2015 with biopsies that were negative - Currently resolved with self treatment of Imodium at home - Clinically intravascular depleted - nutritional status poor at baseline - If diarrhea continue consider 10/04- resolved will be difficult to continue oral magnesium if exacerbating her diarrhea (2) Hypomagnesemia: Plan: Magnesium 0.4 on admission- secondry to diarrhea and poor nutrtional intake - 2GM given in EMD- follow with 3 GM inpatient for total of 5GM - Mag level in the morning - control diarrhea - Continue to support and keep ~2.0 Apears to be resolved on 10/04 (3) Hypocalcemia: Plan: Serum 5.2 - corrected 6.24 - ionized 0.65- replete 1GM in EMD - continue with another 3 GM calc gluconate in patient - nutritional support and replace - improved. will recheck on 10/05 and replete (4) Hypokalemia: Plan: Replete as above - stable this morning- 40 meq now with diuresing (5) Mitral regurgitation: Plan: Mild on last ECHO with preserved EF - ? worsening with tachycardia and low albumin - Support as above - and follow - Diurese today goal -500 ml - initiate diuretic management- convert to oral likely tomorrow - No acute decompensation will need follow up as outpatient - if acutely decompensates JOSIAH in house - Not febrile- WBC downtrended with euvolemia - No ischemic complaints Willl obtain a JOSIAH while patient is in house. NPO after midnight. (6) Pulmonary edema: Plan: Likely related to her HR and poor respiratory effort- and likely undiagnosed COPD and ? RA component - will diurese with amiloride x1 dose now - Albuterol neb now and then prn - 10/03- elevated RVSP with worsening of Mitral Valve- diurese with 10mg IV lasix now and again tonight- will increase dose if poor response (7) CREST syndrome: Plan: Follows with rheumatology - on DMARDS (8) GERD (gastroesophageal reflux disease): Plan: Continue famotidine - Hold PPI until MG increased (9) Restless leg syndrome: Plan: Continue ropinrole (10) Anxiety: Plan: Continue PRN ativan - ? underlying eating disorder (11) Smoker: Plan: Continued smoker - possibly with undiagnosed COPD - smoking cessation (12) Hypoxia: Plan: As above- follow respiratory efforts with diuresing, repleting electrolytes - mild pulmonary edema- ECHO for tomorrow - As above (13) Elevated INR: Plan: Likely related to poor nutrion in the setting of normal LFTs and normal bili, and alk po4 - 1.4- check in morning if >1.5 may need vitamin K - Resolved 10/03 INR 1.1 (14) Poor nutrition: Plan: As above- nutritional assessment - evaluate for oral supplements - ? eating habits - follow PO4 for refeeding - Thiamine 200mg IV daily - As above - ? eating disorder - this is also likely relating to her mitral valve dysfunction (15) Leukocytosis: Plan: No evidence of infection noted- PCT negative - likely hemoconcentrated intravascular - LR overnight and follow - UA negative (16) Iron (Fe) deficiency anemia: Plan: Venofer today 200mg IV - continue with oral supplementation - re-evaluate in morning Admission and Anticipated Discharge Date Admission Date: October 02, 2021 Subjective Patient reports feeling frsutrated about her discharge plan. Had extensive discussion with patient and . CURRENTLY PATIENT IS HAVING DECREASED DIARRHEA, NO FEVER, CHILLS, COUGH, DYSURIA. Review of Systems Review of Systems: All systems reviewed & are unremarkable except as noted in HPI & below Physical Exam Physical Exam: General: awake, alert, anxious Head: Normocephalic, atraumatic ENT: PERRLA, EOMI, no pharyngeal exudate, mucous membranes moist Neuro: AAO x 3, speech clear and appropriate, strength intact bilaterally 5/5, sensation intact and equal all extremities and dermatomes, no pronator drift, coordination improved, remains with lower extremity tremor and early fatigue, her tetany has improved. Chest: equal rise and fall of the chest, no accessory muscle use, no heaves or thrills, scattered crackles on auscultation, on 2lnc, Cardiac: Regular rate and rhythm, telemetry reviewed- ST, skin warm dry, cap refill <3 seconds, peripheral pulses +2 no JVD, Grade III systolic murmur, no JVD,+2 edema to ankles GI: NABS x 4 quadrants, soft, nontender to palpation, no rebound, guarding or tenderness : Spontaneously voiding, no pain, no CVA tenderness, Extremities: Normal inspection, no peripheral edema or erythema, calfs nontender to palpation Psych: anxious Skin: no rash or erythema Results & Data Results & Data ([facility]) Vital Signs (Past 12 Hours) Vital Signs Temp Pulse Resp BP Pulse Ox 10/04/21 00:00 37 C 70 20 123/73 91 PG Care Time/CCT Total # of Minutes Spent Total Time Spent with Patient: Total time spent is greater than 50% in coordination of care (as documented) at patient's floor/unit and/or counseling patient: Prolonged Care Time Prolonged Care Time: Yes 65 10:30 to 11:35 Coding Level of Care Code 08169 Subseq Hosp Care Lvl 3 (25 - SIGNIFICANT, SEPARATELY IDENTIFIABLE ) Diagnoses Diarrhea R19.7 Hypomagnesemia E83.42 Hypocalcemia E83.51 Hypokalemia E87.6 Mitral regurgitation I34.0 Pulmonary edema J81.0 Chronicity: acute CREST syndrome M34.1 GERD (gastroesophageal reflux disease) K21.9 Restless leg syndrome G25.81 Anxiety F41.9 Smoker F17.200 Hypoxia R09.02 Elevated INR R79.1 Poor nutrition E63.9 Leukocytosis D72.829 Iron (Fe) deficiency anemia D50.9 Additional Codes Prolonged Care Time - Prolonged Care Time: Yes ([id number]) Time Spent (min) 65 (1) Pulmonary edema Chronicity: acute Qualified Code(s): J81.0 - Acute pulmonary edema
[2021-10-04] MEDS: FERROUS SULFATE 325 MG TAB PO SCH (12:37)
[2021-10-04] MEDS: FOLIC ACID 1 MG TAB PO SCH (12:37)
[2021-10-04] MEDS: THIAMINE HCL 200 MG in SODIUM CHLORIDE 0.9% 50 ML IV SCH (12:38)
[2021-10-04] MEDS: LORazepam 1 MG TAB PO PRN ×2 (14:46→23:44)
[2021-10-04] MEDS: HYDROXYCHLOROQUINE SULFATE 200 MG TAB PO SCH (21:54)
[2021-10-04] MEDS: FLUoxetine HCL 20 MG CAP PO SCH (21:54)
[2021-10-04] MEDS: FAMOTIDINE 40 MG TABLET PO SCH (21:54)
[2021-10-04] MEDS: rOPINIRole HCL 0.25 MG TABLET PO SCH (21:54)
[2021-10-04] MEDS: ENOXAPARIN INJ 30 MG/0.3 ML SYR SQ SCH (21:54)
[2021-10-04] MEDS: CETIRIZINE HCL 10 MG TABLET PO SCH (21:54)
[2021-10-05] MEDS: METOPROLOL TARTRATE 25 MG TAB PO SCH ×2 (06:27→14:20)
[2021-10-05 09:28] LABS: Basophils # (auto) 0.04 K/uL (0-0.2); Basophils % (auto) 0.3 %; Eosinophils # (auto) 0.07 K/uL (0-0.5); Eosinophils % (auto) 0.6 %; Hematocrit (blood only) 32.9 % (37-47); Hemoglobin 10.7 g/dL (12.0-16.0); Immature Granulocytes # (auto) 0.06 K/uL (0.00-0.02); Immature Granulocytes % (auto) 0.5 %; Lymphocytes # (auto) 0.94 K/uL (1.2-3.4); Lymphocytes % (auto) 7.7 %; Mean Corpuscular Hemoglobin 28.9 pg (25-34); Mean Corpuscular Hgb Conc 32.5 g/dL (32-36); Mean Corpuscular Volume 88.9 fL (80-100); Mean Platelet Volume 9.7 fL (7.4-10.4); Monocytes % (auto) 9.9 %; Neutrophils # (auto) 9.82 K/uL (1.4-6.5); Platelet Count 333 K/uL (130-400); RDW Coefficient of Variation 17.1 % (11.5-14.5); RDW Standard Deviation 54.9 fL (36.4-46.3); White Blood Count 12.13 K/uL (4.8-10.8)
[2021-10-05] MEDS: THIAMINE HCL 200 MG in SODIUM CHLORIDE 0.9% 50 ML IV SCH (09:44)
[2021-10-05 10:00] LABS: Prothrombin Time 10.4 Seconds (9.0-12.0)
[2021-10-05 10:18] LABS: BUN Creatinine Ratio 19.8 (10-20); Calcium 6.8 mg/dl (8.5-10.1); Creatinine Clr Calc Pharmacy 52.9 ml/min; Est GFR (African American) 86.4 ml/min; Est GFR (Non-African American) 74.6 ml/min; Magnesium 1.8 mg/dl (1.8-2.4); Phosphorus 2.8 mg/dl (2.5-4.9); Potassium 4.4 mmol/L (3.5-5.1)
[2021-10-05] MEDS: FERROUS SULFATE 325 MG TAB PO SCH (11:41)
[2021-10-05] MEDS: FOLIC ACID 1 MG TAB PO SCH (11:41)
[2021-10-05] MEDS: LORazepam 1 MG TAB PO PRN (13:44)
--- NOTE | 2021-10-05 18:58 | Discharge Summary ---
Date of Service October 05, 2021 Admission HPI Per Admitting Provider 66 YOF with past medical history: RA, CREST syndrome, Active smoker, Chronic back pain with lumbar radiculopathy, HTN, Electrolyte derangements. Patient comes in today for lower extremity weakness, tremors, loss of appetite. Patient reports 5-7 days of diarrhea that is loose, watery, and brown in color occurring 4-6 times per day. This has no blood or mucous or any association with abdominal pain or discomfort. She has not had any vomiting or nausea. This is associated with loss of appetite and her reports that her appetite over the past 2 months has been poor usually will eat breakfast and nothing else for the rest of the day with possible nibbling at dinner time. In the EMD the patient had routine labs drawn, which revealed MG 0.4, K 3.2, CA 5.2 (iCA- ), PO4, INR 1.4, and elevated WBC. She is also noted to be requiring oxygen therapy and experienced wheezing with a cough last night requiring her to use her albuterol inhaler last night. She had a CT scan performed of her chest that revealed no pulmonary embolism with mild pulmonary edema noted. Her COVID test is negative and she denies any further complaints of illness. Patient will be admitted for electrolyte correction, intravascular volume support, will give 1 dose of distal tubule diuretic for pulmonary efforts. Nutritional assessment. Principal Diagnosis 1. Diarrheaexact etiology unclear 2. Electrolyte abnormalities/dumping syndromehypokalemia, hypomagnesemia, hypoalbuminemia, hypocalcemia 3. Leukocytosis? Reactive 4. Narrow complex SVTlikely secondary to #2. Now bradycardic Discharge Exam General: Resting comfortably in her hospital bed. NAD. HEENT: Head is AT/NC buccal mucosa is moist and pink Neck: No JVD. Negative hepatojugular reflex Cardiac: RRR without M/G/R Lungs: CTA without W/R/R Abdomen: Normoactive X4. Soft and nontender in all quadrants. Extremities: No peripheral clubbing cyanosis or edema Neuro: A&O X4 cranial nerves II through XII are grossly intact no focal neuro deficits Skin: No obvious skin lesions or rashes Psych: Appropriate affect pleasant and cooperative Discharge Data Allergies Allergy/AdvReac Type Severity Reaction Status Date / Time gabapentin Allergy Unknown Feet Verified 10/02/21 12:58 swelling (with higher doses) grass pollen Allergy Unknown Hay fever Verified 10/02/21 12:58 mold Allergy Unknown Hay fever Verified 10/02/21 12:58 spironolactone Allergy Unknown Feet Verified 10/02/21 12:58 swelling Penicillins AdvReac Unknown Yeast Verified 10/02/21 12:58 infection Consultations 10/02/21 13:44 ED Decision to Admit Stat 10/04/21 07:51 Consult Psychiatry Routine Impression / Recommendations Impression 66 yo woman with history of possible restrictive eating disorder vs malnutrition from other causes, chronic back pain, mitral valve prolapse, CREST syndrome, tobacco use, and diarrhea presented with symptoms of malnutrition, diarrhea and cardiac changes. Psychiatry was consulted for decision making capacity when patient requested to discharge in the middle of the night. At this time the patient is felt to have decision making capacity to leave the hospital against medical advice if she so choses. She does not have any symptoms of imminent risk of harm to self or others or risk for inability to safely care for herself to meet criteria for nor necessitate involuntary psychiatric treatment at this time. Ordered Studies 10/02/21 11:04 CT head/brain wo con Stat Impression: 1. No significant change compared to the prior study. No acute intracranial abnormality.. 2. A few scattered patchy areas of hypodensity within the periventricular and subcortical white matter of the supratentorial brain are again noted. These are similar to prior study and therefore favor microvascular ischemic change. A demyelinating disease or Lyme disease could also have a similar appearance in the appropriate clinical setting. 10/02/21 12:10 CT angio chest PE protocol Stat IMPRESSION: 1. There is no evidence of pulmonary embolus in the main, lobar, or segmental pulmonary arteries. 2. Cardiomegaly and emphysema with evidence of congestive failure and pulmonary edema. 3. Small pleural effusions with bibasilar consolidation. This likely represents atelectasis. Correlate clinically for evidence of a superimposed pneumonia. 4. A chronic left L2 lamina fracture is again noted. 5. Lucency around the left interpedicular screw at L2 suggests loosening. 6. Additional findings as above. Hospital Course (1) Diarrhea: Acute on chronic issue: Patient has previously followed with GI with colonoscopy in 2014 with biopsies that were negative - Currently resolved with self treatment of Imodium at home - Clinically intravascular depleted -Suspect dumping syndrome as likely contributing to significant electrolyte abnormalities Did see GI this past August and was referred to [facility] for upper and lower endoscopy (which patient has yet to follow-up). Stool studies including C. difficile negative TSH within normal limits Celiac panel drawn and negative Currently without diarrhea (2) Hypomagnesemia: Replaced and resolved Increase supplementation Unfortunately this may contribute to persistent diarrhea (3) Hypocalcemia: Serum 5.2 - corrected 6.24 - ionized 0.65- replete 1GM in EMD - continue with another 3 GM calc gluconate in patient - nutritional support and replaced - improved. - continue supplementation (4) Hypokalemia: Replaced and resolved (5) SVT (supraventricular tachycardia): Initially noted upfront with heart rate in the 150's that corrected with Lopressor IV X2 doses Likely secondary to hypokalemia/hypomagnesemia Started on oral beta-blockade but subsequently became bradycardic (30s to 40s) Beta-yeni subsequently held and heart rate improved at 68. I suspect heart rate will remain stable with adequate electrolyte control Patient did receive aggressive IV hydration and subsequently had some pulmonary edema that required 1 dose of Lasixsee below (6) Pulmonary edema: Likely related to her HR and poor respiratory effort- and likely undiagnosed COPD and ? RA component -1 dose of IV Lasix -Troponin cycled and negative Echocardiogram showed concern for severe MR (see below) Patient currently euvolemic (7) Mitral regurgitation: Mild on last ECHO with preserved EF Concern for severe mitral regurgitation for which JOSIAH recommended Spoke with cloth printing back tender who is agreeable to do JOSIAH later today but patient a damant about being discharged. She is asymptomatic (denies shortness of breath and is not requiring supplemental oxygen) She is unwilling to wait and wants to go home Nurse navigator to arrange follow-up with cardiology (8) CREST syndrome: Follows with rheumatology - on DMARDS (9) GERD (gastroesophageal reflux disease): Continue famotidine - Hold PPI until MG increased (10) Restless leg syndrome: Continue ropinrole (11) Anxiety: Continue PRN ativan - ? underlying eating disorder (12) Smoker: Continued smoker - possibly with undiagnosed COPD - smoking cessation (13) Poor nutrition: As above- nutritional assessment - evaluate for oral supplements - ? eating habits and presumed underlying dumping syndrome (14) Leukocytosis: No evidence of infection noted- PCT negative - likely hemoconcentrated intravascular and perhaps reactive from diarrhea CTA of the chest shows no evidence of pneumonia Urinalysis not grossly infected (15) Iron (Fe) deficiency anemia: Venofer today 200mg x1 - continue with oral supplementation - re-evaluate in morning Patient had wanted to sign out AGAINST MEDICAL ADVICE in the overnight hours of 10/04-10/05. Dag Coater was uncertain if patient was cognitively im paired and unable to make this decision. Psych was consulted and deemed patient to have capacity. At this point, her electrolytes have been replaced. I suspect she has some underlying dumping syndrome. He may have celiac disease, exocrine pancreatic insufficiency, inflammatory bowel disease, irritable bowel syndrome or some other GI abnormality contributing to her persistent loose stools. Her TSH is normal. This is likely causing her electrolyte abnormalities. Her electrolyte abnormalities likely caused the tachyarrhythmia which contributed to her pulmonary edema. She is currently euvolemic. Her heart rate is currently controlled (was bradycardic with the addition of beta-blockade). Her electrolytes have been replaced. She does need to follow-up with GI (for which she has been established but she is failed to follow-up. At this point, there are no contraindications to proceeding with discharge and continued work-up as an outpatient. Would advise follow-up lab data to trend and follow-up with GI for upper and lower endoscopy Patient to follow-up with cardiology to proceed with JOSIAH as an outpatient as patient did not want to have this done today (as could not be facilitated until late in the afternoon). She did not want to wait and wanted to be discharged RICKY. Total Time Total Time Spent Total Time Spent (In Minutes): 60 Discharge Plan Discharge Items Patient Disposition: Home - Self-Care Reason For Visit: DIARRHEA, ELECTROLYTE DERRANGEMENT, DYSPNEA Discharge Diagnosis: 1. paroxysmal diarrhea- exact etiology unclear. Need to follow up with GI 2. Electrolyte Abnormality- (potassium--"hypokalemia", calcium-- "hypocalcemia", magnesium--"hypomagnesemia", albumin-- "hypoalbuminemia") 3. Mitral Regurgitation- need JOSIAH to further evaluate this (to be done as an outpatient) 4. Pulmonary Edema (too much fluid in the lungs)-- improved with lasix Activity: As commented below Activity Comment: light activity until seen in follow up by cardiology Non-emergency contact: Primary Care Provider and Laundry Equipment Operator Call non-emergency contact if: you have any medication questions Follow-up/Referrals: Raffy Cash MD [Primary Care Provider] - 10/13/21 2:00 pm (You will be seeing Sandra Faith PA-C) Chris Brown MD [Physician] - 10/13/21 10:00 am (Outpatient cardiology - evaluate need for JOSIAH (echocardiogram).) Yarely Spence PA-C [Physician Facing Machine Operator] - 10/19/21 3:00 pm Diet: Regular Addtl Attending Provider Instructions: - you presented to the hospital with persistent diarrhea (that a cause has yet to be determined) - because of the diarrhea, your electrolyte were all "out of whack" (potassium, magnesium, albumin, calcium). I suspect that this is related to your diarrhea - you went into a rapid heart rate (that was corrected with medication) and now you are on Metoprolol (25mg 3x/day) - the heart rate was likely related to the magnesium and potassium being low (which has since been replaced) - your electrolytes have all been replaced (note the increase in your magnesium supplementation) - when your heart rate was rapid, it caused a back up of fluid into your lungs (which improved with lasix) - an echocardiogram (ultrasound) of your heart was performed that shows concern for severe mitral regurgitation (a transesophageal echo is recommended to further differentiate). This is going to be done as an outpatient - your fluid overload has been corrected with 1 dose of lasix and your heart rate is controlled - your electrolytes has been replaced - I still do not know the cause of your diarrhea but you need to follow up with GI to help determine the cause (you need to have a upper and lower endoscopy) --considerations include (but are not limited to): celiac disease, inflammatory bowel disease, exocrine pancreatic insufficiency, Irritable bowel syndrome, could even be related to your Protonix - at any rate, you need to follow up with GI as it is likely that the persistent diarrhea is causing a dumping syndome and leading to your electrolyte abnormalities and in turn, causing more problems, Pending Studies at Discharge: No Stand-Alone Forms: My [facility], Smoking Cessation Medications and DC Order Prescriptions: New magnesium oxide 400 mg magnesium capsule 400 mg PO BID Qty: 60 RF: 0 calcium carbonate [Calcium 500] 500 mg calcium (1,250 mg) tablet 500 mg PO BID Qty: 60 RF: 0 Continued potassium chloride 10 mEq capsule, extended release 10 meq PO QAM Qty: 90 RF: 3 ropinirole 0.25 mg tablet 0.75 mg PO DAILY 90 Days Qty: 270 RF: 3 pantoprazole [Protonix] 40 mg tablet,delayed release (DR/EC) 40 mg PO HS Qty: 90 RF: 3 fluoxetine 20 mg tablet 20 mg PO HS Qty: 30 RF: 5 lorazepam 1 mg tablet 1 mg PO BID PRN (Reason: anxiety) Qty: 60 RF: 2 calcium carbonate 600 mg calcium (1,500 mg) tablet 600 mg PO QAM RF: 0 Humira(CF) 40 mg/0.4 mL syringe kit 40 mg SQ Q14D RF: 0 levocetirizine [Xyzal] 5 mg tablet 5 mg PO HS RF: 0 ascorbic acid (vitamin C) 1,000 mg tablet 1 gm PO QAM RF: 0 folic acid 1 mg tablet 1 mg PO QAM RF: 0 vitamin E succinate 400 unit tablet 400 units PO QAM RF: 0 promethazine 25 mg tablet 25 mg PO Q6H PRN (Reason: nausea and vomiting) Qty: 30 RF: 2 nifedipine 90 mg tablet extended release 90 mg PO QAM RF: 0 methotrexate sodium 2.5 mg tablet 10 mg PO WK RF: 0 hydroxychloroquine 200 mg tablet 200 mg PO HS RF: 0 cholecalciferol (vitamin D3) 2,000 unit tablet 2,000 units PO QAM RF: 0 famotidine 40 mg tablet 40 mg PO HS RF: 0 ferrous sulfate 325 mg (65 mg iron) tablet 325 mg PO QAM RF: 0 multivitamin Tablet 1 tab PO QAM RF: 0 Discontinued magnesium 250 mg tablet 250 mg PO BID Qty: 180 RF: 3 fluconazole 150 mg tablet 150 mg PO Q48H 0 Days Qty: 2 RF: 0 Discharge Orders: Discharge Order (Routine); Ordered 10/05/21 Ordered By: Zhane Arellano Admission Data Admit Date/Time: 10/02/21 14:50 Attending Provider: Masood Weber Admit Provider: Anthony Nunn Primary Care Provider: Raffy Cash Other Providers: Delmi Sawant ; Shazia Escalante ; Yumiko Garcia ; Hermilo Carballo ; Masood Weber Other Interventions: Discharge Summary Assessment (RN) Last Done: 10/05/21 15:38 Supervising Physician Co-Signing Physician Notes I supervised Zhane Arellano PA-C on the care of this patient. I interviewed and examined the patient independently of her. The plan is as written in her note except for any following changes/exceptions: None Patient stable on my interview. She is consistent that she would like to be discharged. She is frustrated by the lack of progress on her diarrhea which improved slightly in the hospital but had not fully resolved. She will need a JOSIAH, but this can be done as outpatient per cardiology. She will be discharged today for f/u with GI and cardiology as outpatient as per her wishes. Coding Level of Care Code D/C DAY MANAGEMENT >30 MINS Diagnoses Diarrhea R19.7 Hypomagnesemia E83.42 Hypocalcemia E83.51 Hypokalemia E87.6 Mitral regurgitation I34.0 Pulmonary edema J81.0 Chronicity: acute CREST syndrome M34.1 GERD (gastroesophageal reflux disease) K21.9 Restless leg syndrome G25.81 Anxiety F41.9 Smoker F17.200 Poor nutrition E63.9 Leukocytosis D72.829 Iron (Fe) deficiency anemia D50.9 SVT (supraventricular tachycardia) I47.1
== END 2021-10-05 16:21 | disposition home or self-care (01) | DRG 392 ==
LOC: ED 10:44 → SUATTDRO 14:50 → EDINP 14:50 → 1E 10-03 19:55 → 3N 10-04 21:06

== ENCOUNTER 2022-05-17 15:29 | Inpatient (IN) ==
[2022-05-17] MEDS ORDERED: SODIUM CHLORIDE 0.9% 1000ML 1,000 ML IV STA (15:42)
[2022-05-17] MEDS ORDERED: MAGNESIUM SULFATE / D5W 1 GM/100 ML BAG IV SCH (15:44)
--- NOTE | 2022-05-17 16:00 | Emergency Department Note ---
Impression & Plan Acute hyperkalemia, Diarrhea, Partial obstruction of small intestine, JEFFERY (acute kidney injury) ED Provider Note NAME: BITA FRANKS AGE: 67 SEX: F : 1955 ARRIVES VIA: Walk-In INFORMANT: Patient, ED PROVIDER(S): Casimiro Casas DO CHIEF COMPLAINT: Dehydration HPI: The patient is a 67-year-old female who presented to the emergency department for generalized weakness. 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 She has been dealing with these problems for many months. The patient has had a work-up with gastroenterology. Most recently the patient was diagnosed with esophageal candidiasis. She was started on medications for esophageal candidiasis last week. She denies having any vomiting but she has had nausea and decreased p.o. intake. She states that she has no appetite. She is lost a significant amount of weight. She is been here before and states that time she was told that she had hypomagnesemia as well as hypokalemia. She thinks that her electrolytes may be off at this time. The patient has had no trauma or falls but she does feel very weak when she tries ambulate. She still has approximately 5 episodes of loose bowel movements every day. She denies having any black or bloody bowel moods. She states that she even started having problems with hallucinating over the last few days. She states that the symptoms are not ongoing. ROS: See above HPI for pertinent positives & negatives. A total of 10 systems reviewed and were otherwise negative. PAST MEDICAL HISTORY: See Below PAST SURGICAL HISTORY: See Below FAMILY HISTORY: See Below SOCIAL HISTORY: See Below HOME MEDICATIONS: See Below ALLERGIES: See Below VITALS: See Below PHYSICAL EXAMINATION: GENERAL: The patient is awake and alert. She is very cachectic appearing. EYES: The conjunctivae are clear. The pupils are round and reactive. EARS, NOSE, MOUTH AND THROAT: The nose is without any evidence of any deformity. Mucous membranes are dry and erythematous. NECK: The neck is nontender and supple. RESPIRATORY: Normal respiratory effort is noted there is no evidence of wheezing rhonchi or rales CARDIOVASCULAR: Regular rate and rhythm noted there no murmurs rubs or gallops normal S1 normal S2. GASTROINTESTINAL: The abdomen is soft and mildly distended. There is no specific tenderness guarding rigidity. MUSCULOSKELETAL/EXTREMITIES: There is no evidence of gross deformity full range of motion is noted in the hips and shoulders. SKIN: Skin is warm and dry. There is very poor turgor noted. NEUROLOGIC: Patient is awake alert and oriented x3. MEDICAL DECISION MAKING: The patient is a 67-year-old female who presented to the emergency department for an evaluation of generalized weakness and diarrhea. The patient has a history of scleroderma as well as crest syndrome. She was recently diagnosed with esophageal candidiasis. The patient thought her magnesium and her potassium could be low because of how she was feeling. The patient was very emaciated appearing. She was very dehydrated on physical exam. The patient was treated with IV fluids in the emergency department. Her initial EKG appears to be consistent with a wide-complex as well as peaked T waves. This prompted a [id number] electrolyte check which revealed hyperkalemia and an elevation in her creatinine from baseline. She was treated with calcium insulin and dextrose. She was also given an hour-long DuoNeb. She was reevaluated multiple times. Repeat EKG did show significant improvement in her QRS widening. I discussed patient's laboratory and radiographic studies with her. She was further treated with IV fluids. She was feeling much better on subsequent reevaluation. I discussed her case with the on-call [facility] hospitalist. They have agreed to evaluate the patient in the emergency department for further management and disposition. Triage Nursing notes reviewed. Prior medical records reviewed Vital Signs: reviewed and remarkable for no significant abnormalities Differential diagnosis: Infection, dehydration, metabolic abnormality, hypo/hyperglycemia, electrolyte disturbance, anemia, hypoxia, cardiac sources, intracerebral event, toxicologic, neurologic, as well as other pathologies. ER treatment provided: See below Diagnostics interpreted by me: ECG: EKG was obtained in the emergency department. My interpretation is normal sinus rhythm at 83 bpm. No PVCs were noted. Left bundle branch block pattern was noted. Nonspecific ST segment depressions were noted in the inferior and lateral leads. This represents significant change compared to a tracing from October 03, 2021. A second EKG was obtained in the emergency department after treatment for hyperkalemia. My interpretation is normal sinus rhythm at 79 bpm. At this time the QRS duration is now 94 ms. There is significant improvement of the previously noted ST segment abnormalities. Cardiac Monitoring: An order was placed for continuous cardiac monitoring. The monitor shows a rate of 83 bpm with sinus rhythm. Laboratory studies: As stated above and show below. Imaging studies: See below Consultation(s): I discussed this case with Dr. Worley who is on-call for the [facility] hospitalist group. ED COURSE: Procedures: none PDMP:reviewed and no issues Critical Care: I have personally spent greater than 45 minutes of critical care time in the direct management of this patient. This includes bedside care, interpretation of diagnostic studies, and testing, discussion with consultants, patient, and family members, and other required patient management activities. This 45 minutes is in excess of all separately billable procedures. Past Med/Surg History Medical History Allergic rhinitis Anxiety Arthritis Asthma well controlled per pt Chronic obstructive pulmonary disease well controlled per pt > no inh CREST syndrome + raynaud's symptoms, follows with Dr. Bradly Ahuja ([place]) Degenerative disc disease Depression Endometriosis GERD (gastroesophageal reflux disease) Hypertension Lumbar spinal stenosis Restless leg syndrome Rheumatoid arthritis Scleroderma Scoliosis Surgical History History of colonoscopy S/P correction of deviated nasal septum S/P tonsillectomy S/P total abdominal hysterectomy and bilateral salpingo-oophorectomy Family History Mother Dementia Osteoporosis Sister Hypertension Father Myocardial infarction Diet age 50 secondary to myocardial infarction Other Medical history non-contributory Denies family history of Ovarian cancer Prostate cancer Breast cancer Colorectal cancer Social History Smoking Status: Current every day smoker Age Started Using Tobacco: 19; packs per day: 0.5; Cigarettes Per Day: 5-6; Second Hand Exposure: No; Hx Alcohol Use: No Hx Substance Use: No Preferred Language: Romanian Communication Ability: Effective Visual Impairment: No Limitations Hearing Ability: Use of Hearing Aid Fire Management Technician Required: No Beliefs That Will Affect Care: None marital status: Current Living Situation: Spouse current occupational status: employed current occupation: Working for [employer] Feels Safe at Home: Yes Assistive Devices: Cane, Glasses and Hearing Aid - Bilateral Allergies Allergies Allergy/AdvReac Type Severity Reaction Status Date / Time gabapentin Allergy Intermediate Feet Verified 05/17/22 17:43 swelling (with higher doses) grass pollen Allergy Intermediate Hay fever Verified 05/17/22 17:43 mold Allergy Intermediate Hay fever Verified 05/17/22 17:43 spironolactone Allergy Intermediate Feet Verified 05/17/22 17:43 swelling Penicillins AdvReac Intermediate Yeast Verified 05/17/22 17:43 infection Home Meds Home Medications Medication Instructions Recorded Confirmed nifedipine 90 mg tablet,extended 90 mg PO QAM 10/16/18 05/17/22 release adalimumab 40 mg/0.4 mL 40 mg SQ Q14D ea 05/03/19 05/17/22 subcutaneous syringe kit (Humira(CF)) calcium carbonate 600 mg calcium 600 mg PO QAM tab 05/03/19 05/17/22 (1,500 mg) tablet levocetirizine 5 mg tablet (Xyzal) 5 mg PO HS 05/03/19 05/17/22 hydroxychloroquine 200 mg tablet 200 mg PO HS tab 12/13/19 05/17/22 multivitamin 1 tab PO QAM 11/20/20 05/17/22 denosumab 60 mg/mL subcutaneous See Rx Instructions SUBCUT .COMPLEX 11/22/21 05/17/22 syringe (Prolia) methotrexate sodium 2.5 mg tablet 10 mg PO WK tab 11/22/21 05/17/22 naproxen sodium 220 mg capsule 220 mg PO HS cap 11/24/21 05/17/22 folic acid 1 mg tablet 2 mg PO DAILY tab 01/15/22 05/17/22 pantoprazole 40 mg tablet,delayed 40 mg PO BID tab 01/15/22 05/17/22 release (Protonix) Previous Rx's Medication Instructions Recorded ropinirole 0.25 mg tablet 0.75 mg PO DAILY 90 Days #270 tab 08/10/21 diphenoxylate-atropine 2.5 1 tab PO .COMPLEX PRN #240 tab 12/23/21 mg-0.025 mg tablet (Lomotil) duloxetine 60 mg capsule,delayed 60 mg PO DAILY #30 cap 01/15/22 release lorazepam 1 mg tablet 1 mg PO BID PRN #60 tab 03/02/22 dibucaine 1 % rectal ointment 1 applic [place] TID PRN #56 g 03/03/22 potassium chloride 10 mEq 10 meq PO QAM #90 cap 03/04/22 capsule,extended release magnesium chloride 71.5 mg 71.5 mg PO BID #60 tab 04/27/22 (magnesium chloride) tablet,delayed release (Slow-Mag) promethazine 25 mg tablet 25 mg PO Q6H PRN #30 tab 04/27/22 Results & Data (ED) Vital Signs Vital Signs - 24 hr 05/17/22 15:30 05/17/22 16:03 05/17/22 16:30 Temperature 36.8 C Temperature Source Temporal Artery Scan Pulse Rate 88 80 76 Respiratory Rate 18 19 19 Blood Pressure 103/71 Blood Pressure Mean 81 Blood Pressure Position Sitting Pulse Oximetry 98 Oxygen Delivery Method Room Air Sepsis Recent Fever Within 48 Hours No Sepsis New/Unexplained Change in Mental Status No Sepsis Action Taken by Nursing No Action Required 05/17/22 17:22 05/17/22 17:28 05/17/22 17:30 Temperature Temperature Source Pulse Rate 85 83 83 Respiratory Rate 21 21 18 Blood Pressure 125/75 Blood Pressure Mean 91 Blood Pressure Position Pulse Oximetry Oxygen Delivery Method Sepsis Recent Fever Within 48 Hours Sepsis New/Unexplained Change in Mental Status Sepsis Action Taken by Usp Medications Current Medication List: was personally reviewed by me Laboratory Data Attestation: I reviewed the patient's lab results. Result diagrams: 05/18/22 07:21 05/18/22 07:21 Lab Results 05/17/22 05/17/22 05/17/22 Range/Units 15:59 15:59 15:59 WBC 18.10 H (4.8-10.8) K/uL RBC 4.92 (4.2-5.4) M/uL Hgb 15.0 (12.0-16.0) g/dL POC Hgb (12.0-16.0) g/dl Hct 43.0 (37-47) % POC Hct (37-47) % MCV 87.4 (80-100) fL MCH 30.5 (25-34) pg MCHC 34.9 (32-36) g/dL RDW Std Deviation 46.6 H (36.4-46.3) fL RDW Coeff of Chary 14.8 H (11.5-14.5) % Plt Count 327 (130-400) K/uL MPV 9.8 (7.4-10.4) fL Immature Gran % (Auto) 0.3 % Neut % (Auto) 90.3 % Lymph % (Auto) 7.5 % [place] % (Auto) 1.8 % Eos % (Auto) 0.0 % Baso % (Auto) 0.1 % Neut # (Auto) 16.34 H (1.4-6.5) K/uL Lymph # (Auto) 1.36 (1.2-3.4) K/uL [place] # (Auto) 0.33 (0.11-0.59) K/uL Eos # (Auto) 0.00 (0-0.5) K/uL Baso # (Auto) 0.01 (0-0.2) K/uL Immature Gran # (Auto) 0.06 H (0.00-0.02) K/uL POC Sodium (135-144) mmol/L Sodium 133 L (136-145) mmol/L POC Potassium (3.3-5.0) mmol/L Potassium 6.6 H* (3.5-5.1) mmol/L POC Chloride (101-112) mmol/L Chloride 103 (98-107) mmol/L Carbon Dioxide 14 L (21-32) mmol/L POC Total CO2 (24-31) mmol/L Anion Gap 16 H (3-11) POC Anion Gap (16-25) mmol/L POC BUN (7-18) mg/dl BUN 49 H (6-23) mg/dl Creatinine 2.13 H (0.6-1.2) mg/dl POC Creatinine (0.6-1.3) mg/dl Est Cr Clr Drug Dosing Not Reportable Est GFR ( Amer) 27.1 ml/min Est GFR (Non-Af Amer) 23.4 ml/min BUN/Creatinine Ratio 23.0 H (10-20) Glucose 169 H (70-99(Fasting)) mg/dl POC Glucose (other) (70-99) mg/dl Calcium 10.2 H (8.5-10.1) mg/dl POC Ioniz Calcium Shanel (1.12-1.32) mmol/l Magnesium 2.5 H (1.7-2.4) mg/dl Total Bilirubin 0.6 (0.2-1.0) mg/dl AST 50 H (13-39) U/L ALT 65 H (7-52) U/L Alkaline Phosphatase 136 H (34-104) U/L Troponin I High Sens 30.0 H (0-14) pg/ml Total Protein 7.3 (6.0-8.3) gm/dl Albumin 4.2 (3.4-5.0) gm/dl Globulin 3.1 (2.5-4.0) gm/dl Albumin/Globulin Ratio 1.4 (0.9-2) Lipase 12 (11-82) U/L TSH 1.530 (0.300-4.500) uIu/ml Urine Color Urine Appearance (Clear) Urine pH (4.5-7.5) Ur Specific Howard (1.000-1.030) Urine Protein (Negative) Urine Glucose (UA) (Negative) Urine Ketones (Negative) Urine Blood (Negative) Urine Nitrite (Negative) Urine Bilirubin (Negative) Urine Urobilinogen (Negative) Ur Leukocyte Esterase (Negative) SARS-CoV-2, RNA, NAAT (NEGATIVE) 05/17/22 05/17/22 05/17/22 Range/Units 16:04 16:30 18:45 WBC (4.8-10.8) K/uL RBC (4.2-5.4) M/uL Hgb (12.0-16.0) g/dL POC Hgb 15.3 (12.0-16.0) g/dl Hct (37-47) % POC Hct 45 (37-47) % MCV (80-100) fL MCH (25-34) pg MCHC (32-36) g/dL RDW Std Deviation (36.4-46.3) fL RDW Coeff of Chary (11.5-14.5) % Plt Count (130-400) K/uL MPV (7.4-10.4) fL Immature Gran % (Auto) % Neut % (Auto) % Lymph % (Auto) % [place] % (Auto) % Eos % (Auto) % Baso % (Auto) % Neut # (Auto) (1.4-6.5) K/uL Lymph # (Auto) (1.2-3.4) K/uL [place] # (Auto) (0.11-0.59) K/uL Eos # (Auto) (0-0.5) K/uL Baso # (Auto) (0-0.2) K/uL Immature Gran # (Auto) (0.00-0.02) K/uL POC Sodium 133 L (135-144) mmol/L Sodium (136-145) mmol/L POC Potassium 6.5 H* (3.3-5.0) mmol/L Potassium (3.5-5.1) mmol/L POC Chloride 108 (101-112) mmol/L Chloride (98-107) mmol/L Carbon Dioxide (21-32) mmol/L POC Total CO2 16 L (24-31) mmol/L Anion Gap (3-11) POC Anion Gap 16.0 (16-25) mmol/L POC BUN 44 H (7-18) mg/dl BUN (6-23) mg/dl Creatinine (0.6-1.2) mg/dl POC Creatinine 2.2 H (0.6-1.3) mg/dl Est Cr Clr Drug Dosing Est GFR ( Amer) ml/min Est GFR (Non-Af Amer) ml/min BUN/Creatinine Ratio (10-20) Glucose (70-99(Fasting)) mg/dl POC Glucose (other) 176 H (70-99) mg/dl Calcium (8.5-10.1) mg/dl POC Ioniz Calcium Shanel 1.24 (1.12-1.32) mmol/l Magnesium (1.7-2.4) mg/dl Total Bilirubin (0.2-1.0) mg/dl AST (13-39) U/L ALT (7-52) U/L Alkaline Phosphatase (34-104) U/L Troponin I High Sens (0-14) pg/ml Total Protein (6.0-8.3) gm/dl Albumin (3.4-5.0) gm/dl Globulin (2.5-4.0) gm/dl Albumin/Globulin Ratio (0.9-2) Lipase (11-82) U/L TSH (0.300-4.500) uIu/ml Urine Color Yellow Urine Appearance Clear (Clear) Urine pH 5.0 (4.5-7.5) Ur Specific Howard 1.013 (1.000-1.030) Urine Protein Negative (Negative) Urine Glucose (UA) Negative (Negative) Urine Ketones Negative (Negative) Urine Blood Negative (Negative) Urine Nitrite Negative (Negative) Urine Bilirubin Negative (Negative) Urine Urobilinogen Negative (Negative) Ur Leukocyte Esterase Negative (Negative) SARS-CoV-2, RNA, NAAT NEGATIVE (NEGATIVE) Administered Medications Cetirizine HCl (Cetirizine Hcl 10 Mg Tablet) 10 mg PO HS EDWARDO Stop: 06/16/22 20:59 Last Admin: 05/17/22 21:16 Dose: 10 mg Documented by: [id number] Heparin Sodium (Porcine) (Heparin Sod 5,000 Unit/0.5 Ml Vial) 5,000 units SQ Q12 EDWARDO Stop: 06/16/22 20:59 Last Admin: 05/17/22 21:16 Dose: 5,000 units Documented by: [id number] Hydroxychloroquine Sulfate (Hydroxychloroquine Sulfate 200 Mg Tab) 200 mg PO HS EDWARDO Stop: 06/16/22 20:59 Last Admin: 05/17/22 21:16 Dose: 200 mg Documented by: [id number] Lorazepam (Lorazepam 1 Mg Tab) 1 mg PO BID PRN PRN Reason: anxiety Stop: 06/16/22 20:04 Last Admin: 05/17/22 22:27 Dose: 1 mg Documented by: [id number] Pantoprazole Sodium (Pantoprazole 40 Mg Tab) 40 mg PO BID EDWARDO Stop: 06/16/22 20:59 Last Admin: 05/17/22 21:16 Dose: 40 mg Documented by: [id number] Discontinued Medications Albuterol (Albut/Ipratrop 3mg/0.5mg Neb 3 Ml Vial) 12 ml NEB ONE ONE; Protocol Stop: 05/17/22 16:06 Last Admin: 05/17/22 16:16 Dose: 12 ml Documented by: [id number] Dextrose (Dextrose 50% 50 Ml Syringe) 50 ml IV NOW STA Stop: 05/17/22 16:06 Last Admin: 05/17/22 16:16 Dose: 50 ml Documented by: [id number] Dextrose (Dextrose 50% 50 Ml Syringe) 25 ml IV ONE ONE; Protocol Stop: 05/17/22 19:54 Last Admin: 05/17/22 20:44 Dose: 25 ml Documented by: [id number] Sodium Chloride (Nss 1000ml) 1,000 mls @ 999 mls/hr IV .Q1H1M STA Stop: 05/17/22 16:42 Last Infusion: 05/17/22 17:37 Dose: 0 mls/hr Documented by: [id number] Admin: 05/17/22 16:17 Dose: 999 mls/hr Documented by: [id number] Magnesium Sulfate/Dextrose (Magnesium Sulfate / D5w) 1 gm in 100 mls @ 100 mls/hr IV Q1H EDWARDO Stop: 05/17/22 17:43 Last Admin: 05/17/22 16:08 Dose: Not Given Documented by: [id number] Sodium Chloride (Nss 1000ml) 1,000 mls @ 999 mls/hr IV .Q1H1M ONE Stop: 05/17/22 17:05 Last Infusion: 05/17/22 19:18 Dose: 0 mls/hr Documented by: [id number] Admin: 05/17/22 17:53 Dose: 999 mls/hr Documented by: [id number] Calcium Chloride 1,000 mg/ (Dextrose) 60 mls @ 240 mls/hr IV NOW STA Stop: 05/17/22 16:19 Last Infusion: 05/17/22 16:50 Dose: 0 mls/hr Documented by: [id number] Admin: 05/17/22 16:33 Dose: 240 mls/hr Documented by: [id number] Cefoxitin Sodium (Mefoxin) 2,000 mg in 60 mls @ 100 mls/hr IV NOW STA Stop: 05/17/22 18:07 Last Infusion: 05/17/22 19:18 Dose: 0 mls/hr Documented by: [id number] Admin: 05/17/22 18:15 Dose: 100 mls/hr Documented by: [id number] Sodium Chloride (Nss 1000ml) 1,000 mls @ 125 mls/hr IV .Q8H EDWARDO Stop: 06/16/22 20:04 Last Infusion: 05/18/22 06:32 Dose: 0 mls/hr Documented by: [id number] Admin: 05/17/22 21:58 Dose: 100 mls/hr Documented by: [id number] Insulin Aspart (Insulin Aspart Per Unit) 5 units SC NOW STA Stop: 05/17/22 22:36 Last Admin: 05/17/22 23:47 Dose: 5 units Documented by: [id number] Cosigned by: [id number] Insulin Human Regular (Novolin-R Insulin Per Unit Charge) 10 units IV NOW STA Stop: 05/17/22 16:06 Last Admin: 05/17/22 16:16 Dose: 10 units Documented by: [id number] Cosigned by: [id number] Imaging Data Radiologist's Impression: KUB X-Ray 05/17/22 15:42 XR chest 1V portable, XR KUB/Abdomen 1 view HISTORY: 67 years-old Female WEAKNESS acute weakness COMPARISON: CTA chest 10/02/2021, acute abdominal series radiographs 08/24/2021, CT 03/11/2022 TECHNIQUE: Portable AP view the chest with KUB radiograph FINDINGS: CHEST: Mild gaseous distention of the colon accounts for a right subdiaphragmatic l ucency. The cardiomediastinal and hilar silhouettes are within normal limits. The patient is mildly rotated. No pneumothorax, large pleural effusion, airspace consolidation or overt pulmonary edema. Emphysema with chronic interstitial coarsening. Degenerative changes of the shoulders and spine. KUB: Distended air-filled loops of large and small bowel. Small bowel loops measure up to approximately 5.4 cm. Bubbly lucencies projecting over the small bowel loops likely represent air within the small bowel lumen. Degenerative changes of the spine, pelvis and hips. Lumbar spinal fusion hardware with discectomy changes. Scoliotic curvature of the lumbar spine is again noted. IMPRESSION: 1. Pulmonary emphysema without acute intrathoracic abnormality. 2. Dilated air-filled loops of large and small bowel may represent distal obstruction versus ileus. Correlate with the already ordered CT abdomen and pelvis study of same day. ACT 112: Negative or not required by law. The above report was generated using voice recognition software. It may contain grammatical, syntax or spelling errors. Electronically signed by: Allan Blackburn M.D. 05/17/2022 4:46 PM Chest X-Ray 05/17/22 15:43 XR chest 1V portable, XR KUB/Abdomen 1 view HISTORY: 67 years-old Female WEAKNESS acute weakness COMPARISON: CTA chest 10/02/2021, acute abdominal series radiographs 08/24/2021, CT 03/11/2022 TECHNIQUE: Portable AP view the chest with KUB radiograph FINDINGS: CHEST: Mild gaseous distention of the colon accounts for a right subdiaphragmatic lucency. The cardiomediastinal and hilar silhouettes are within normal limits. The patient is mildly rotated. No pneumothorax, large pleural effusion, airspace consolidation or overt pulmonary edema. Emphysema with chronic interstitial coarsening. Degenerative changes of the shoulders and spine. KUB: Distended air-filled loops of large and small bowel. Small bowel loops measure up to approximately 5.4 cm. Bubbly lucencies projecting over the small bowel loops likely represent air within the small bowel lumen. Degenerative changes of the spine, pelvis and hips. Lumbar spinal fusion hardware with discectomy changes. Scoliotic curvature of the lumbar spine is again noted. IMPRESSION: 1. Pulmonary emphysema without acute intrathoracic abnormality. 2. Dilated air-filled loops of large and small bowel may represent distal obstruction versus ileus. Correlate with the already ordered CT abdomen and pelvis study of same day. ACT 112: Negative or not required by law. The above report was generated using voice recognition software. It may contain grammatical, syntax or spelling errors. Electronically signed by: Allan Blackburn M.D. 05/17/2022 4:46 PM Abdomen/Pelvis CT 05/17/22 16:[address] WITHOUT CONTRAST CT DOSE: 238.03 mGy.cm HISTORY: Acute generalized abdominal pain with diarrhea and weakness pain TECHNIQUE: Multiaxial CT images of the abdomen and pelvis were performed without contrast. A dose lowering technique was utilized adhering to the principles of ALARA. COMPARISON STUDY: 03/11/2022 enterography, CT abdomen and pelvis 09/02/2021 FINDINGS: Coronary artery calcifications. Clear lung bases. The study is limited secondary to respiratory motion artifact, lack of contrast, paucity of intra- abdominal fat and artifact from spinal fusion hardware. Diminutive spleen. Generalized pancreatic atrophy. Unremarkable adrenal glands. The gallbladder appears distended. Unremarkable liver. Cortical thinning of the kidneys. Mildly atrophic left kidney. No hydronephrosis or definite urolith identified. Unremarkable urinary bladder. Atherosclerosis of the aorta without aneurysm. There is no lymphadenopathy identified. Small to moderate hiatal hernia with fluid-filled distended distal esophagus. The stomach is also fluid-filled and distended. No fragments are seen within the stomach and duodenum. Hyperdense material within the colon and rectum may be medicinal. Numerous air and fluid-filled loops of small bowel measure up to approximately 4.7 cm. Decompressed loops of small bowel are noted within the central pelvis. The distal colon is decompressed. Air-fluid levels are noted within the right hemicolon. There is mild gaseous distention of the transverse and ascending colon. Unremarkable soft tissues. Degenerative changes of the spine, pelvis and hips. Posterior interbody sohan and screw fusion hardware is noted at what appears to be the L2-L5 levels. There is transitional lumbosacral anatomy. There is lucency surrounding the bilateral L5 screws. The right L4 and L5 screws extend lateral to the lateral humeral body cortices. Scoliotic curvature of the lumbar spine. The bilateral L2 pedicle screws are again noted to be positioned medially, left greater than right. IMPRESSION: 1. There are numerous distended air and fluid-filled loops of small bowel with decompressed small bowel loops within the central pelvis. The ascending and transverse colon also demonstrates mild gaseous distention. Findings are jaimes spicious for a partial small bowel obstruction versus ileus. Follow-up recommended. Similar findings have been present on multiple prior exams. 2. Limited exam as above. 3. Hiatal hernia with fluid distention of the distal esophagus is similar to p rior. 4. Posterior interbody sohan and screw fusion hardware of the lumbar spine redemonstrated with findings suggestive of hardware loosening. ACT 112: Negative or not required by law. The above report was generated using voice recognition software. It may contain grammatical, syntax or spelling errors. Electronically signed by: Allan Blackburn M.D. 05/17/2022 5:38 PM Discharge Plan Visit Data Chief Complaint: Abnormal Labs/Diagnostic Testing Stated Complaint: TROUBLES W/ENZYMES ED Provider: Casimiro Casas Discharge Problem: Acute hyperkalemia, Diarrhea, Partial obstruction of small intestine, JEFFERY (acute kidney injury) Patient Disposition: Admitted As Inpatient Discharge Instructions Interventions: ED Discharge Assessment Last Done: 05/17/22 19:41 Discharge Problem: Diarrhea Qualifiers: Diarrhea type: unspecified type Qualified Code(s): R19.7 - Diarrhea, unspecified
[2022-05-17] MEDS ORDERED: DEXTROSE 50% 50 ML SYRINGE IV STA (16:05)
[2022-05-17] MEDS ORDERED: NovoLIN-R INSULIN PER UNIT CHARGE IV STA (16:05)
[2022-05-17] MEDS ORDERED: SODIUM CHLORIDE 0.9% 1000ML 1,000 ML IV ONE (16:05)
[2022-05-17] MEDS ORDERED: CALCIUM CHLORIDE 10% 1,000 MG in DEXTROSE 5% 50 ML IV STA (16:05)
[2022-05-17] MEDS ORDERED: ALBUT/IPRATROP 3MG/0.5MG NEB 3 ML VIAL NEB ONE (16:05)
[2022-05-17 16:11] LABS: Basophils # (auto) 0.01 K/uL (0-0.2); Basophils % (auto) 0.1 %; Immature Granulocytes # (auto) 0.06 K/uL (0.00-0.02); Immature Granulocytes % (auto) 0.3 %; Lymphocytes # (auto) 1.36 K/uL (1.2-3.4); Lymphocytes % (auto) 7.5 %; Mean Corpuscular Hemoglobin 30.5 pg (25-34); Mean Corpuscular Hgb Conc 34.9 g/dL (32-36); Mean Corpuscular Volume 87.4 fL (80-100); Mean Platelet Volume 9.8 fL (7.4-10.4); Monocytes # (auto) 0.33 K/uL (0.11-0.59); Monocytes % (auto) 1.8 %; Neutrophils # (auto) 16.34 K/uL (1.4-6.5); Neutrophils % (auto) 90.3 %; Platelet Count 327 K/uL (130-400); RDW Coefficient of Variation 14.8 % (11.5-14.5); RDW Standard Deviation 46.6 fL (36.4-46.3); Red Blood Count 4.92 M/uL (4.2-5.4)
[2022-05-17 16:16] LABS: iSTAT Creatinine 2.2 mg/dl (0.6-1.3); iSTAT Hemoglobin 15.3 g/dl (12.0-16.0); iSTAT Ionized Calcium 1.24 mmol/l (1.12-1.32); iSTAT Potassium 6.5 mmol/L (3.3-5.0)
[2022-05-17 16:42] LABS: Alanine Aminotransferase 65 U/L (7-52); Albumin Globulin Ratio 1.4 (0.9-2); Albumin Level 4.2 gm/dl (3.4-5.0); Alkaline Phosphatase 136 U/L (34-104); Anion Gap 16 (3-11); Aspartate Aminotransferase 50 U/L (13-39); Bilirubin,Total 0.6 mg/dl (0.2-1.0); Blood Urea Nitrogen 49 mg/dl (6-23); Calcium 10.2 mg/dl (8.5-10.1); Carbon Dioxide 14 mmol/L (21-32); Chloride 103 mmol/L (98-107); Est GFR (African American) 27.1 ml/min; Est GFR (Non-African American) 23.4 ml/min; Globulin 3.1 gm/dl (2.5-4.0); Glucose 169 mg/dl (70-99(Fasting)); Lipase 12 U/L (11-82); Magnesium 2.5 mg/dl (1.7-2.4); Potassium 6.6 mmol/L (3.5-5.1); Sodium 133 mmol/L (136-145); Total Protein 7.3 gm/dl (6.0-8.3)
--- NOTE | 2022-05-17 16:48 | XRay Report ---
XR chest 1V portable, XR KUB/Abdomen 1 view HISTORY: 67 years-old Female WEAKNESS acute weakness COMPARISON: CTA chest 10/02/2021, acute abdominal series radiographs 08/24/2021, CT 03/11/2022 TECHNIQUE: Portable AP view the chest with KUB radiograph FINDINGS: CHEST: Mild gaseous distention of the colon accounts for a right subdiaphragmatic lucency. The cardiomediast inal and hilar silhouettes are within normal limits. The patient is mildly rotated. No pneumothorax, large pleural effusion, airspace consolidation or overt pulmonary edema. Emphysema with chronic inter stitial coarsening. Degenerative changes of the shoulders and spine. KUB: Distended air-filled loops of large and small bowel. Small bowel loops measure up to approximately 5 .4 cm. Bubbly lucencies projecting over the small bowel loops likely represent air within the small b owel lumen. Degenerative changes of the spine, pelvis and hips. Lumbar spinal fusion hardware with di scectomy changes. Scoliotic curvature of the lumbar spine is again noted. IMPRESSION: 1. Pulmonary emphysema without acute intrathoracic abnormality. 2. Dilated air-filled loops of large and small bowel may represent distal obstruction versus ileus. C orrelate with the already ordered CT abdomen and pelvis study of same day. ACT 112: Negative or not required by law. The above report was generated using voice recognition software. It may contain grammatical, syntax o r spelling errors. Electronically signed by: Allan Blackburn M.D. 05/17/2022 4:46 PM
[2022-05-17] MEDS ORDERED: cefOXitin 2,000 MG/60 ML BAG IV STA (17:32)
--- NOTE | 2022-05-17 17:41 | CT Scan Report ---
ABDOMEN AND PELVIS CT WITHOUT CONTRAST CT DOSE: 238.03 mGy.cm HISTORY: Acute generalized abdominal pain with diarrhea and weakness pain TECHNIQUE: Multiaxial CT images of the abdomen and pelvis were performed without contrast. A dose lo wering technique was utilized adhering to the principles of ALARA. COMPARISON STUDY: 03/11/2022 enterography, CT abdomen and pelvis 09/02/2021 FINDINGS: Coronary artery calcifications. Clear lung bases. The study is limited secondary to respira tory motion artifact, lack of contrast, paucity of intra-abdominal fat and artifact from spinal fusio n hardware. Diminutive spleen. Generalized pancreatic atrophy. Unremarkable adrenal glands. The gallbladder appea rs distended. Unremarkable liver. Cortical thinning of the kidneys. Mildly atrophic left kidney. No h ydronephrosis or definite urolith identified. Unremarkable urinary bladder. Atherosclerosis of the ao rta without aneurysm. There is no lymphadenopathy identified. Small to moderate hiatal hernia with fluid-filled distended distal esophagus. The stomach is also flu id-filled and distended. No fragments are seen within the stomach and duodenum. Hyperdense material w ithin the colon and rectum may be medicinal. Numerous air and fluid-filled loops of small bowel measu re up to approximately 4.7 cm. Decompressed loops of small bowel are noted within the central pelvis. The distal colon is decompressed. Air-fluid levels are noted within the right hemicolon. There is mi ld gaseous distention of the transverse and ascending colon. Unremarkable soft tissues. Degenerative changes of the spine, pelvis and hips. Posterior interbody sohan and screw fusion hardware is noted at what appears to be the L2-L5 levels. There is transitional lumbosacral anatomy. There is lucency surr ounding the bilateral L5 screws. The right L4 and L5 screws extend lateral to the lateral humeral bod y cortices. Scoliotic curvature of the lumbar spine. The bilateral L2 pedicle screws are again noted to be positioned medially, left greater than right. IMPRESSION: 1. There are numerous distended air and fluid-filled loops of small bowel with decompressed small bow el loops within the central pelvis. The ascending and transverse colon also demonstrates mild gaseous distention. Findings are suspicious for a partial small bowel obstruction versus ileus. Follow-up re commended. Similar findings have been present on multiple prior exams. 2. Limited exam as above. 3. Hiatal hernia with fluid distention of the distal esophagus is similar to prior. 4. Posterior interbody sohan and screw fusion hardware of the lumbar spine redemonstrated with findings suggestive of hardware loosening. ACT 112: Negative or not required by law. The above report was generated using voice recognition software. It may contain grammatical, syntax o r spelling errors. Electronically signed by: Allan Blackburn M.D. 05/17/2022 5:38 PM
--- NOTE | 2022-05-17 18:52 | History & Physical Report ---
Date of Service May 17, 2022 Assessment & Plan (1) Acute hyperkalemia: Plan: Presents with potassium of 6.6 in the setting of acute kidney injury from dehydration from chronic diarrhea and exogenous potassium use Treated with calcium chloride, insulin and D50, albuterol in the ER as well as 2 L of normal saline -Admit to telemetry unit for arrhythmia monitoring -Check BMP stat -Continue normal saline at 100 mL/h -Treat hyperkalemia further if needed, but would avoid potassium binding agents due to her chronic diarrhea -ECG with new LBBB initially and then resolved-check echocardiogram -Hold home potassium chloride (2) JEFFERY (acute kidney injury): Plan: Secondary to dehydration from ongoing diarrhea which is chronic With resultant hyperkalemia and anion gap metabolic acidosis She is making urine Follow BMP Continue IV fluid hydration Hold home potassium (3) Partial obstruction of small intestine: Plan: Chronic and unchanged in appearance on CT abdomen/pelvis from previous She is following with [facility] in [place] and recently had a colonoscopy 2 weeks ago with 3 polyps removed which she was told were benign She is also undergoing a work-up for carcinoid with oncology/Dr. Calle and is planning on having a scan for carcinoid in the near future [facility] has also recommended laparoscopy for lysis of adhesions-this has not been pursued just yet as per patient and her She is no longer nauseated and is hungry-order clears diet and advance as tolerated No need for NG tube Follow-up KUB if has worsening nausea or vomiting (4) Diarrhea: Plan: As above Continue Lomotil as needed (5) Rheumatoid arthritis: Plan: No acute issues Continue home methotrexate and hydroxychloroquine Continue folic acid (6) GERD (gastroesophageal reflux disease): Plan: Continue PPI (7) Restless leg syndrome: Plan: Continue ropinirole (8) Hypertension: Plan: Blood pressures controlled Continue nifedipine which is also likely for her Raynaud's (9) Scleroderma: Plan: Follows with rheumatology in [place] Continue home medications (10) Atrial flutter: Plan: Has a history of such, currently in sinus rhythm Following telemetry Not on anticoagulation (11) Allergic rhinitis: Plan: Continue home antihistamine (12) Anxiety: Plan: Continue home lorazepam as needed Plan: DVT prophylaxis-Lovenox SQ, SCDs Disposition-admit to PCU DNR/DNI Patient is fairly adamant about leaving the hospital tomorrow, but this could only be possible if her electrolyte abnormalities and acute kidney injury have resolved. History of Present Illness Chief Complaint: Dehydration, weakness Primary Care Provider: Raffy Cash MD This patient is a 67-year-old female with a history of scleroderma, GERD, RLS, HTN, chronic diarrhea and chronic partial small bowel obstruction of unknown origin, lumbar spinal stenosis, who presents to the ER with feelings of shakiness and weakness which is how she feels when she has been dehydrated in the past with hypomagnesemia and hypokalemia. She was found to have significant hyperkalemia in the ER with a potassium of 6.6, as well as an acute kidney injury with creatinine 2.1 up from baseline of 1.2 two months ago. Her serum bicarbonate was also low at 14 and she had an anion gap of 16. Her AST, ALT, alkaline phosphatase were also mildly elevated but total bilirubin normal. Troponin was also mildly elevated at 30. She was treated with IV calcium chloride, insulin and D50, and albuterol. She was also given a dose of cefoxitin potentially for presumptive GI source of infection because her WBC count was elevated at 18. She denies any fevers or chills, no headaches or lightheadedness, no chest pains or shortness of breath, no abdominal pains. Had 1 episode of nausea and vomiting last night but none since then is feeling hungry. Her initial EKG showed a new left bundle branch block, but a repeat EKG after treatment for hyperkalemia showed absence of LBBB. She will be admitted for hyperkalemia and acute kidney injury. Allergies Allergy/AdvReac Type Severity Reaction Status Date / Time gabapentin Allergy Intermediate Feet Verified 05/17/22 17:43 swelling (with higher doses) grass pollen Allergy Intermediate Hay fever Verified 05/17/22 17:43 mold Allergy Intermediate Hay fever Verified 05/17/22 17:43 spironolactone Allergy Intermediate Feet Verified 05/17/22 17:43 swelling Penicillins AdvReac Intermediate Yeast Verified 05/17/22 17:43 infection Home Medications Medication Instructions Recorded Confirmed Type nifedipine 90 mg tablet,extended 90 mg PO QAM 10/16/18 05/17/22 History release adalimumab 40 mg/0.4 mL 40 mg SQ Q14D ea 05/03/19 05/17/22 History subcutaneous syringe kit (Humira(CF)) calcium carbonate 600 mg calcium 600 mg PO QAM tab 05/03/19 05/17/22 History (1,500 mg) tablet levocetirizine 5 mg tablet (Xyzal) 5 mg PO HS 05/03/19 05/17/22 History hydroxychloroquine 200 mg tablet 200 mg PO HS tab 12/13/19 05/17/22 History multivitamin 1 tab PO QAM 11/20/20 05/17/22 History ropinirole 0.25 mg tablet 0.75 mg PO DAILY 90 Days #270 tab 08/10/21 05/17/22 Rx denosumab 60 mg/mL subcutaneous See Rx Instructions SUBCUT .COMPLEX 11/22/21 05/17/22 History syringe (Prolia) methotrexate sodium 2.5 mg tablet 10 mg PO WK tab 11/22/21 05/17/22 History naproxen sodium 220 mg capsule 220 mg PO HS cap 11/24/21 05/17/22 History diphenoxylate-atropine 2.5 1 tab PO .COMPLEX PRN #240 tab 12/23/21 05/17/22 Rx mg-0.025 mg tablet (Lomotil) duloxetine 60 mg capsule,delayed 60 mg PO DAILY #30 cap 01/15/22 05/17/22 Rx release folic acid 1 mg tablet 2 mg PO DAILY tab 01/15/22 05/17/22 History pantoprazole 40 mg tablet,delayed 40 mg PO BID tab 01/15/22 05/17/22 History release (Protonix) lorazepam 1 mg tablet 1 mg PO BID PRN #60 tab 03/02/22 05/17/22 Rx dibucaine 1 % rectal ointment 1 applic UT TID PRN #56 g 03/03/22 05/17/22 Rx potassium chloride 10 mEq 10 meq PO QAM #90 cap 03/04/22 05/17/22 Rx capsule,extended release magnesium chloride 71.5 mg 71.5 mg PO BID #60 tab 04/27/22 05/17/22 Rx (magnesium chloride) tablet,delayed release (Slow-Mag) promethazine 25 mg tablet 25 mg PO Q6H PRN #30 tab 04/27/22 05/17/22 Rx Past Med/Surg History Medical History Allergic rhinitis Anxiety Arthritis Asthma well controlled per pt Chronic obstructive pulmonary disease well controlled per pt > no inh CREST syndrome + raynaud's symptoms, follows with Dr. Bradly Ahuja ([place]) Degenerative disc disease Depression Endometriosis GERD (gastroesophageal reflux disease) Hypertension Lumbar spinal stenosis Restless leg syndrome Rheumatoid arthritis Scleroderma Scoliosis Surgical History History of colonoscopy S/P correction of deviated nasal septum S/P tonsillectomy S/P total abdominal hysterectomy and bilateral salpingo-oophorectomy Family History Mother Dementia Osteoporosis Sister Hypertension Father Myocardial infarction Diet age 50 secondary to myocardial infarction Other Medical history non-contributory Denies family history of Ovarian cancer Prostate cancer Breast cancer Colorectal cancer Social History Smoking Status: Current some day smoker Age Started Using Tobacco: 19; packs per day: 0.5; Cigarettes Per Day: 5-6; Second Hand Exposure: No; Hx Alcohol Use: Yes Alcohol type: hard liquor Alcohol Intake Frequency Comment: 1-2 alcoholic beverages per day. Hx Substance Use: No Preferred Language: Bruneian Communication Ability: Effective Visual Impairment: No Limitations Hearing Ability: Use of Hearing Aid Enlisted Advisor Required: No Beliefs That Will Affect Care: None marital status: Current Living Situation: Spouse current occupational status: employed current occupation: Working for [employer] Feels Safe at Home: Yes Assistive Devices: Cane, Glasses and Hearing Aid - Bilateral Review of Systems Review of Systems: All systems reviewed & are unremarkable except as noted in HPI & below Has lost at least 50 pounds over the last year Physical Exam Constitutional: + thin; no acute distress and not lethargic Eyes: PERRL, conjunctivae normal, anicteric sclerae ENMT: Ears: no hearing impairment and no external ear abnormality Mouth: + dry oral mucous membranes; no oral mucosal abnormality Neck: trachea midline, no thyromegaly Respiratory: normal respiratory effort, lungs clear to auscultation Cardiovascular: RRR, no murmur, no edema Chest (Breasts): Chest: normal inspection of chest Gastrointestinal (Abdomen): normal bowel sounds, soft, nontender, no he patosplenomegaly Musculoskeletal: Extremities: + extremities abnormal to inspection (With purple discoloration of fingertips), no cyanosis and no clubbing Skin: no rashes, warm and dry Neurologic: moves all extremities and awake; no focal motor deficits Psychiatric: A+Ox3, euthymic affect Lymphatic: no lymphedema Results & Data Results & Data ([facility]) Vital Signs (Past 12 Hours) Vital Signs Temp Pulse Resp BP Pulse Ox 05/17/22 17:30 83 18 05/17/22 17:28 83 21 125/75 05/17/22 17:22 85 21 05/17/22 16:30 76 19 05/17/22 16:03 80 19 05/17/22 15:30 36.8 C 88 18 103/71 98 Laboratory Results 05/17/22 05/17/22 05/17/22 Range/Units 18:55 18:45 16:30 WBC (4.8-10.8) K/uL RBC (4.2-5.4) M/uL Hgb (12.0-16.0) g/dL POC Hgb (12.0-16.0) g/dl Hct (37-47) % POC Hct (37-47) % MCV (80-100) fL MCH (25-34) pg MCHC (32-36) g/dL RDW Std Deviation (36.4-46.3) fL RDW Coeff of Chary (11.5-14.5) % Plt Count (130-400) K/uL MPV (7.4-10.4) fL Immature Gran % (Auto) % Neut % (Auto) % Lymph % (Auto) % [place] % (Auto) % Eos % (Auto) % Baso % (Auto) % Neut # (Auto) (1.4-6.5) K/uL Lymph # (Auto) (1.2-3.4) K/uL [place] # (Auto) (0.11-0.59) K/uL Eos # (Auto) (0-0.5) K/uL Baso # (Auto) (0-0.2) K/uL Immature Gran # (Auto) (0.00-0.02) K/uL POC Sodium (135-144) mmol/L Sodium Pending (136-145) mmol/L POC Potassium (3.3-5.0) mmol/L Potassium Pending (3.5-5.1) mmol/L POC Chloride (101-112) mmol/L Chloride Pending (98-107) mmol/L Carbon Dioxide Pending (21-32) mmol/L POC Total CO2 (24-31) mmol/L Anion Gap Pending (3-11) POC Anion Gap (16-25) mmol/L POC BUN (7-18) mg/dl BUN Pending (6-23) mg/dl Creatinine Pending (0.6-1.2) mg/dl POC Creatinine (0.6-1.3) mg/dl Est Cr Clr Drug Dosing Pending Est GFR ( Amer) Pending ml/min Est GFR (Non-Af Amer) Pending ml/min BUN/Creatinine Ratio Pending (10-20) Glucose Pending (70-99(Fasting)) mg/dl POC Glucose (other) (70-99) mg/dl Calcium Pending (8.5-10.1) mg/dl POC Ioniz Calcium Shanel (1.12-1.32) mmol/l Magnesium (1.7-2.4) mg/dl Total Bilirubin (0.2-1.0) mg/dl AST (13-39) U/L ALT (7-52) U/L Alkaline Phosphatase (34-104) U/L Troponin I High Sens Pending (0-14) pg/ml Total Protein (6.0-8.3) gm/dl Albumin (3.4-5.0) gm/dl Globulin (2.5-4.0) gm/dl Albumin/Globulin Ratio (0.9-2) Lipase (11-82) U/L TSH (0.300-4.500) uIu/ml Urine Color Yellow Urine Appearance Clear (Clear) Urine pH 5.0 (4.5-7.5) Ur Specific Geraldine 1.013 (1.000-1.030) Urine Protein Negative (Negative) Urine Glucose (UA) Negative (Negative) Urine Ketones Negative (Negative) Urine Blood Negative (Negative) Urine Nitrite Negative (Negative) Urine Bilirubin Negative (Negative) Urine Urobilinogen Negative (Negative) Ur Leukocyte Esterase Negative (Negative) SARS-CoV-2, RNA, NAAT NEGATIVE (NEGATIVE) 05/17/22 05/17/22 05/17/22 Range/Units 16:04 15:59 15:59 WBC (4.8-10.8) K/uL RBC (4.2-5.4) M/uL Hgb (12.0-16.0) g/dL POC Hgb 15.3 (12.0-16.0) g/dl Hct (37-47) % POC Hct 45 (37-47) % MCV (80-100) fL MCH (25-34) pg MCHC (32-36) g/dL RDW Std Deviation (36.4-46.3) fL RDW Coeff of Chary (11.5-14.5) % Plt Count (130-400) K/uL MPV (7.4-10.4) fL Immature Gran % (Auto) % Neut % (Auto) % Lymph % (Auto) % [place] % (Auto) % Eos % (Auto) % Baso % (Auto) % Neut # (Auto) (1.4-6.5) K/uL Lymph # (Auto) (1.2-3.4) K/uL [place] # (Auto) (0.11-0.59) K/uL Eos # (Auto) (0-0.5) K/uL Baso # (Auto) (0-0.2) K/uL Immature Gran # (Auto) (0.00-0.02) K/uL POC Sodium 133 L (135-144) mmol/L Sodium 133 L (136-145) mmol/L POC Potassium 6.5 H* (3.3-5.0) mmol/L Potassium 6.6 H* (3.5-5.1) mmol/L POC Chloride 108 (101-112) mmol/L Chloride 103 (98-107) mmol/L Carbon Dioxide 14 L (21-32) mmol/L POC Total CO2 16 L (24-31) mmol/L Anion Gap 16 H (3-11) POC Anion Gap 16.0 (16-25) mmol/L POC BUN 44 H (7-18) mg/dl BUN 49 H (6-23) mg/dl Creatinine 2.13 H (0.6-1.2) mg/dl POC Creatinine 2.2 H (0.6-1.3) mg/dl Est Cr Clr Drug Dosing Not Reportable Est GFR ( Amer) 27.1 ml/min Est GFR (Non-Af Amer) 23.4 ml/min BUN/Creatinine Ratio 23.0 H (10-20) Glucose 169 H (70-99(Fasting)) mg/dl POC Glucose (other) 176 H (70-99) mg/dl Calcium 10.2 H (8.5-10.1) mg/dl POC Ioniz Calcium Shanel 1.24 (1.12-1.32) mmol/l Magnesium 2.5 H (1.7-2.4) mg/dl Total Bilirubin 0.6 (0.2-1.0) mg/dl AST 50 H (13-39) U/L ALT 65 H (7-52) U/L Alkaline Phosphatase 136 H (34-104) U/L Troponin I High Sens 30.0 H (0-14) pg/ml Total Protein 7.3 (6.0-8.3) gm/dl Albumin 4.2 (3.4-5.0) gm/dl Globulin 3.1 (2.5-4.0) gm/dl Albumin/Globulin Ratio 1.4 (0.9-2) Lipase 12 (11-82) U/L TSH 1.530 (0.300-4.500) uIu/ml Urine Color Urine Appearance (Clear) Urine pH (4.5-7.5) Ur Specific Geraldine (1.000-1.030) Urine Protein (Negative) Urine Glucose (UA) (Negative) Urine Ketones (Negative) Urine Blood (Negative) Urine Nitrite (Negative) Urine Bilirubin (Negative) Urine Urobilinogen (Negative) Ur Leukocyte Esterase (Negative) SARS-CoV-2, RNA, NAAT (NEGATIVE) 05/17/22 Range/Units 15:59 WBC 18.10 H (4.8-10.8) K/uL RBC 4.92 (4.2-5.4) M/uL Hgb 15.0 (12.0-16.0) g/dL POC Hgb (12.0-16.0) g/dl Hct 43.0 (37-47) % POC Hct (37-47) % MCV 87.4 (80-100) fL MCH 30.5 (25-34) pg MCHC 34.9 (32-36) g/dL RDW Std Deviation 46.6 H (36.4-46.3) fL RDW Coeff of Chary 14.8 H (11.5-14.5) % Plt Count 327 (130-400) K/uL MPV 9.8 (7.4-10.4) fL Immature Gran % (Auto) 0.3 % Neut % (Auto) 90.3 % Lymph % (Auto) 7.5 % [place] % (Auto) 1.8 % Eos % (Auto) 0.0 % Baso % (Auto) 0.1 % Neut # (Auto) 16.34 H (1.4-6.5) K/uL Lymph # (Auto) 1.36 (1.2-3.4) K/uL [place] # (Auto) 0.33 (0.11-0.59) K/uL Eos # (Auto) 0.00 (0-0.5) K/uL Baso # (Auto) 0.01 (0-0.2) K/uL Immature Gran # (Auto) 0.06 H (0.00-0.02) K/uL POC Sodium (135-144) mmol/L Sodium (136-145) mmol/L POC Potassium (3.3-5.0) mmol/L Potassium (3.5-5.1) mmol/L POC Chloride (101-112) mmol/L Chloride (98-107) mmol/L Carbon Dioxide (21-32) mmol/L POC Total CO2 (24-31) mmol/L Anion Gap (3-11) POC Anion Gap (16-25) mmol/L POC BUN (7-18) mg/dl BUN (6-23) mg/dl Creatinine (0.6-1.2) mg/dl POC Creatinine (0.6-1.3) mg/dl Est Cr Clr Drug Dosing Est GFR ( Amer) ml/min Est GFR (Non-Af Amer) ml/min BUN/Creatinine Ratio (10-20) Glucose (70-99(Fasting)) mg/dl POC Glucose (other) (70-99) mg/dl Calcium (8.5-10.1) mg/dl POC Ioniz Calcium Shanel (1.12-1.32) mmol/l Magnesium (1.7-2.4) mg/dl Total Bilirubin (0.2-1.0) mg/dl AST (13-39) U/L ALT (7-52) U/L Alkaline Phosphatase (34-104) U/L Troponin I High Sens (0-14) pg/ml Total Protein (6.0-8.3) gm/dl Albumin (3.4-5.0) gm/dl Globulin (2.5-4.0) gm/dl Albumin/Globulin Ratio (0.9-2) Lipase (11-82) U/L TSH (0.300-4.500) uIu/ml Urine Color Urine Appearance (Clear) Urine pH (4.5-7.5) Ur Specific Geraldine (1.000-1.030) Urine Protein (Negative) Urine Glucose (UA) (Negative) Urine Ketones (Negative) Urine Blood (Negative) Urine Nitrite (Negative) Urine Bilirubin (Negative) Urine Urobilinogen (Negative) Ur Leukocyte Esterase (Negative) SARS-CoV-2, RNA, NAAT (NEGATIVE) Diagnostic Findings KUB X-Ray 05/17/22 15:42 XR chest 1V portable, XR KUB/Abdomen 1 view HISTORY: 67 years-old Female WEAKNESS acute weakness COMPARISON: CTA chest 10/02/2021, acute abdominal series radiographs 08/24/2021, CT 03/11/2022 TECHNIQUE: Portable AP view the chest with KUB radiograph FINDINGS: CHEST: Mild gaseous distention of the colon accounts for a right subdiaphragmatic lucency. The cardiomediastinal and hilar silhouettes are within normal limits. The patient is mildly rotated. No pneumothorax, large pleural effusion, airspace consolidation or overt pulmonary edema. Emphysema with chronic interstitial coarsening. Degenerative changes of the shoulders and spine. KUB: Distended air-filled loops of large and small bowel. Small bowel loops measure up to approximately 5.4 cm. Bubbly lucencies projecting over the small bowel loops likely represent air within the small bowel lumen. Degenerative changes of the spine, pelvis and hips. Lumbar spinal fusion hardware with discectomy changes. Scoliotic curvature of the lumbar spine is again noted. IMPRESSION: 1. Pulmonary emphysema without acute intrathoracic abnormality. 2. Dilated air-filled loops of large and small bowel may represent distal obstruction versus ileus. Correlate with the already ordered CT abdomen and pelvis study of same day. ACT 112: Negative or not required by law. The above report was generated using voice recognition software. It may contain grammatical, syntax or spelling errors. Electronically signed by: Allan Blackburn M.D. 05/17/2022 4:46 PM Chest X-Ray 05/17/22 15:43 XR chest 1V portable, XR KUB/Abdomen 1 view HISTORY: 67 years-old Female WEAKNESS acute weakness COMPARISON: CTA chest 10/02/2021, acute abdominal series radiographs 08/24/2021, CT 03/11/2022 TECHNIQUE: Portable AP view the chest with KUB radiograph FINDINGS: CHEST: Mild gaseous distention of the colon accounts for a right subdiaphragmatic lucency. The cardiomediastinal and hilar silhouettes are within normal limits. The patient is mildly rotated. No pneumothorax, large pleural effusion, airspace consolidation or overt pulmonary edema. Emphysema with chronic interstitial coarsening. Degenerative changes of the shoulders and spine. KUB: Distended air-filled loops of large and small bowel. Small bowel loops measure up to approximately 5.4 cm. Bubbly lucencies projecting over the small bowel loops likely represent air within the small bowel lumen. Degenerative changes of the spine, pelvis and hips. Lumbar spinal fusion hardware with discectomy changes. Scoliotic curvature of the lumbar spine is again noted. IMPRESSION: 1. Pulmonary emphysema without acute intrathoracic abnormality. 2. Dilated air-filled loops of large and small bowel may represent distal obstruction versus ileus. Correlate with the already ordered CT abdomen and pelvis study of same day. ACT 112: Negative or not required by law. The above report was generated using voice recognition software. It may contain grammatical, syntax or spelling errors. Electronically signed by: Allan Blackburn M.D. 05/17/2022 4:46 PM Abdomen/Pelvis CT 05/17/22 16:[address] WITHOUT CONTRAST CT DOSE: 238.03 mGy.cm HISTORY: Acute generalized abdominal pain with diarrhea and weakness pain TECHNIQUE: Multiaxial CT images of the abdomen and pelvis were performed without contrast. A dose lowering technique was utilized adhering to the principles of ALARA. COMPARISON STUDY: 03/11/2022 enterography, CT abdomen and pelvis 09/02/2021 FINDINGS: Coronary artery calcifications. Clear lung bases. The study is limited secondary to respiratory motion artifact, lack of contrast, paucity of intra-abdominal fat and artifact from spinal fusion hardware. Diminutive spleen. Generalized pancreatic atrophy. Unremarkable adrenal glands. The gallbladder appears distended. Unremarkable liver. Cortical thinning of the kidneys. Mildly atrophic left kidney. No hydronephrosis or definite urolith identified. Unremarkable urinary bladder. Atherosclerosis of the aorta without aneurysm. There is no lymphadenopathy identified. Small to moderate hiatal hernia with fluid-filled distended distal esophagus. The stomach is also fluid-filled and distended. No fragments are seen within the stomach and duodenum. Hyperdense material within the colon and rectum may be medicinal. Numerous air and fluid-filled loops of small bowel measure up to approximately 4.7 cm. Decompressed loops of small bowel are noted within the central pelvis. The distal colon is decompressed. Air-fluid levels are noted within the right hemicolon. There is mild gaseous distention of the transverse and ascending colon. Unremarkable soft tissues. Degenerative changes of the spine, pelvis and hips. Posterior interbody sohan and screw fusion hardware is noted at what appears to be the L2-L5 levels. There is transitional lumbosacral anatomy. There is lucency surrounding the bilateral L5 screws. The right L4 and L5 screws extend lateral to the lateral humeral body cortices. Scoliotic curvature of the lumbar spine. The bilateral L2 pedicle screws are again noted to be positioned medially, left greater than right. IMPRESSION: 1. There are numerous distended air and fluid-filled loops of small bowel with decompressed small bowel loops within the central pelvis. The ascending and transverse colon also demonstrates mild gaseous distention. Findings are suspicious for a partial small bowel obstruction versus ileus. Follow-up antonio mmended. Similar findings have been present on multiple prior exams. 2. Limited exam as above. 3. Hiatal hernia with fluid distention of the distal esophagus is similar to prior. 4. Posterior interbody sohan and screw fusion hardware of the lumbar spine redemonstrated with findings suggestive of hardware loosening. ACT 112: Negative or not required by law. The above report was generated using voice recognition software. It may contain grammatical, syntax or spelling errors. Electronically signed by: Allan Blackburn M.D. 05/17/2022 5:38 PM ECG Additional Comments: As per HPI Code Status & VTE Plan Code Status DNR/DNI VTE Prophylaxis Plan VTE Prophylaxis will be ordered: Yes PG Care Time/CCT Total # of Minutes Spent Total Time Spent with Patient: Total time spent is greater than 50% in coordination of care (as documented) at patient's floor/unit and/or counseling patient: Coding Level of Care Code 68566 Initial Inpt Care Lvl 3 Diagnoses Anxiety F41.9 Rheumatoid arthritis M06.9 GERD (gastroesophageal reflux disease) K21.9 Restless leg syndrome G25.81 Allergic rhinitis J30.9 Hypertension I10 Scleroderma M34.9 Atrial flutter I48.92 Atrial flutter type: unspecified JEFFERY (acute kidney injury) N17.9 Partial obstruction of small intestine K56.600 Diarrhea R19.7 Diarrhea type: unspecified type Acute hyperkalemia E87.5 (1) Atrial flutter Atrial flutter type: unspecified Qualified Code(s): I48.92 - Unspecified atrial flutter (2) Diarrhea Diarrhea type: unspecified type Qualified Code(s): R19.7 - Diarrhea, unspecified
[2022-05-17 19:13] LABS: Appearance Urine Clear (Clear); Bilirubin Urine Negative (Negative); Blood Urine Negative (Negative); Color Urine Yellow; Glucose Urine UA Negative (Negative); Ketones Urine Negative (Negative); Leukocyte Esterase Urine Negative (Negative); Nitrite Urine Negative (Negative); Protein Urine Negative (Negative); Specific Gravity Urine 1.013 (1.000-1.030); Urobilinogen Urine Negative (Negative)
[2022-05-17 19:41] LABS: Anion Gap 14 (3-11); BUN Creatinine Ratio 21.8 (10-20); Blood Urea Nitrogen 44 mg/dl (6-23); Calcium 10.1 mg/dl (8.5-10.1); Carbon Dioxide 11 mmol/L (21-32); Chloride 111 mmol/L (98-107); Est GFR (African American) 28.9 ml/min; Est GFR (Non-African American) 24.9 ml/min; Glucose 63 mg/dl (70-99(Fasting)); Potassium 5.1 mmol/L (3.5-5.1); Sodium 136 mmol/L (136-145); Troponin I High Sensitivity 29.3 pg/ml (0-14)
[2022-05-17] MEDS ORDERED: DEXTROSE 50% 50 ML SYRINGE IV ONE (19:53)
[2022-05-17] MEDS ORDERED: ONDANSETRON INJ 2 MG/ML 2 ML VIAL IV PRN (20:05)
[2022-05-17] MEDS ORDERED: LORazepam 1 MG TAB PO PRN (20:05)
[2022-05-17] MEDS ORDERED: ACETAMINOPHEN 325 MG TAB PO PRN (20:05)
[2022-05-17] MEDS ORDERED: DIPHENOXYLATE/ATROPINE 2.5/0.025MG TAB PO PRN (20:05)
[2022-05-17] MEDS ORDERED: PANTOprazole 40 MG TAB PO SCH (21:00)
[2022-05-17] MEDS ORDERED: HYDROXYCHLOROQUINE SULFATE 200 MG TAB PO SCH (21:00)
[2022-05-17] MEDS ORDERED: CETIRIZINE HCL 10 MG TABLET PO SCH (21:00)
[2022-05-17] MEDS ORDERED: HEPARIN SOD 5,000 UNIT/0.5 ML VIAL SQ SCH (21:00)
[2022-05-17] MEDS: SODIUM CHLORIDE 0.9% 1000ML 1,000 ML IV SCH (21:58)
[2022-05-17] MEDS ORDERED: INSULIN ASPART PER UNIT SC STA (22:35)
[2022-05-17] MEDS ORDERED: CARBOHYDRATES FOR HYPOGLYCEMIA PO PRN (22:36)
[2022-05-17] MEDS ORDERED: DEXTROSE 50% 50 ML SYRINGE IV PRN (22:36)
[2022-05-17] MEDS ORDERED: GLUCAGON FOR INJ 1 MG VIAL SQ PRN (22:36)
[2022-05-17] MEDS ORDERED: GLUCOSE 10 TABS/TUBE PO PRN (22:36)
[2022-05-17] MEDS ORDERED: GLUCOSE 40% GEL 15 GM TUBE PO PRN (22:36)
--- NOTE | 2022-05-17 22:39 | Communication Note ---
Date of Service: May 17, 2022 bsg 430 after 75mL of IV glucose. giving 5u aspart. check bsg q1h patient inquired about fluconazole. reviewed [facility] [place] powerchart records. rx'd 05/06/22 14 day course for esophageal candidiasis. D/c this admission in setting of hyperkalemia 6.5. Fluconazole can potentially contribute to severe hyperkalemia.
[2022-05-18 07:49] LABS: Hematocrit (blood only) 41.9 % (37-47); Hemoglobin 14.4 g/dL (12.0-16.0); Mean Corpuscular Hemoglobin 30.8 pg (25-34); Mean Corpuscular Hgb Conc 34.4 g/dL (32-36); Mean Corpuscular Volume 89.5 fL (80-100); Mean Platelet Volume 10.6 fL (7.4-10.4); Platelet Count 331 K/uL (130-400); RDW Coefficient of Variation 15.3 % (11.5-14.5); RDW Standard Deviation 49.4 fL (36.4-46.3); Red Blood Count 4.68 M/uL (4.2-5.4); White Blood Count 7.61 K/uL (4.8-10.8)
[2022-05-18 08:12] LABS: Albumin Globulin Ratio 1.4 (0.9-2); Albumin Level 3.6 gm/dl (3.4-5.0); BUN Creatinine Ratio 27.2 (10-20); Bilirubin,Total 0.5 mg/dl (0.2-1.0); Calcium 10.3 mg/dl (8.5-10.1); Creatinine Clr Calc Pharmacy 15.8 ml/min; Est GFR (African American) 26.5 ml/min; Est GFR (Non-African American) 22.8 ml/min; Globulin 2.6 gm/dl (2.5-4.0); Potassium 5.8 mmol/L (3.5-5.1); Total Protein 6.2 gm/dl (6.0-8.3)
[2022-05-18 08:51] LABS: Basophils # (auto) 0.01 K/uL (0-0.2); Basophils % (auto) 0.1 %; Dohle Bodies 1+; Echinocytes 1+; Immature Granulocytes # (auto) 0.01 K/uL (0.00-0.02); Immature Granulocytes % (auto) 0.1 %; Lymphocytes # (auto) 0.44 K/uL (1.2-3.4); Lymphocytes % (auto) 5.8 %; Monocytes # (auto) 0.22 K/uL (0.11-0.59); Monocytes % (auto) 2.9 %; Neutrophils # (auto) 6.93 K/uL (1.4-6.5); Neutrophils % (auto) 91.1 %; Toxic Granulation 1+
[2022-05-18] MEDS ORDERED: FOLIC ACID 1 MG TAB PO SCH (09:00)
[2022-05-18] MEDS ORDERED: NIFEdipine EXTENDED REL 30 MG TABCR PO SCH (09:00)
[2022-05-18] MEDS ORDERED: D5W AND NSS 1,000 ML IV SCH (09:00)
[2022-05-18] MEDS ORDERED: rOPINIRole HCL 0.25 MG TABLET PO SCH (09:00)
[2022-05-18] MEDS ORDERED: DULoxetine HCL 60 MG CAP PO SCH (09:00)
[2022-05-18] MEDS: SODIUM CHLORIDE 0.9% 1000ML 1,000 ML IV SCH (09:03)
[2022-05-18 09:20] LABS: Base Excess ABG -16.3 mEq/L (-9-1.8); HCO3 ABG 9 mmol/L (19-24); Oxygen Saturation ABG 97.1 % (90-95); PCO2 ABG 20 mmHg (35-46); PO2 ABG 79 mmHg (80-95); pH ABG 7.25 (7.35-7.45)
[2022-05-18 09:22] LABS: Allen Test Pos (Pos)
[2022-05-18] MEDS ORDERED: PROCHLORPERAZINE 5 MG in SYRINGE 4 ML IV PRN (10:08)
--- NOTE | 2022-05-18 10:29 | Communication Note ---
Date of Service: May 18, 2022 GI has been consulted for patient's ongoing issue of diarrhea and concern for malabsorption.This is a known problem. She has been evaluated at [facility] in [place], [place] for this issue. She had a EGD/colonoscopy with a double balloon enteroscopy in March 2022. Recommendations were made for her new local GI provider, Dr. Mcnulty, to refer to a surgeon for consideration of an laparoscopy for further evaluation for carcinoid syndrome due to ongoing diarrhea and small bowel abnormalities noted repeatedly on CT imaging. She is reportedly following with heme/onc as well. Can treat diarrhea supportively with Imodium or Lomotil as was recommended by Dr. Yoon at [facility], however there are no further GI interventions to make particularly in the inpatient setting. Proceed with surgical evaluation and heme/onc evaluation for carcinoid syndrome. These recommendations are outlined in the outpatient GI notes from [facility] available in our chart. Ok to use up to 8 tablets of Lomotil daily in the interim until definitive evaluation can be made by the appropriate team.
[2022-05-18] MEDS ORDERED: Standard 16mcg/mL; 4 MG in 250 mL for HYPOTENSION IV SCH (10:30)
--- NOTE | 2022-05-18 17:01 | Nephrology Consultation ---
Date of Consultation May 18, 2022 Assessment & Plan (1) JEFFERY (acute kidney injury): Consultation was not completed. Patient was coded and . History of Present Illness Reason for Consultation: JEFFERY, hyperkalemia Requesting Physician: William Cote Attending Physician: William Cote History of Present Illness During my assessment this morning, the patient was found to be unresponsive. Her breathing was agonal but she did have a pulse. The patient's nurse was brought to the bedside and stroke alert was called. Dr. Cote arrived at the bedside. When placed on the monitor, profound bradycardia was recorded. At this time pulse was very difficult to palpate. DNR/DNI. However, bag valve mask respirations were provided. Sodium bicarbonate 1 amp followed by epinephrine through existing IV access was provided. Subsequently, a second round of bicarb and epi was given. The patient unfortunately progressed to fine VF and PEA prior to being pronounced at 10.24. Dr. Cote contacted family. Allergies Allergy/AdvReac Type Severity Reaction Status Date / Time gabapentin Allergy Intermediate Feet Verified 05/17/22 17:43 swelling (with higher doses) grass pollen Allergy Intermediate Hay fever Verified 05/17/22 17:43 mold Allergy Intermediate Hay fever Verified 05/17/22 17:43 spironolactone Allergy Intermediate Feet Verified 05/17/22 17:43 swelling Penicillins AdvReac Intermediate Yeast Verified 05/17/22 17:43 infection Home Medications Medication Instructions Recorded Confirmed Type nifedipine 90 mg tablet,extended 90 mg PO QAM 10/16/18 05/17/22 History release adalimumab 40 mg/0.4 mL 40 mg SQ Q14D ea 05/03/19 05/17/22 History subcutaneous syringe kit (Humira(CF)) calcium carbonate 600 mg calcium 600 mg PO QAM tab 05/03/19 05/17/22 History (1,500 mg) tablet levocetirizine 5 mg tablet (Xyzal) 5 mg PO HS 05/03/19 05/17/22 History hydroxychloroquine 200 mg tablet 200 mg PO HS tab 12/13/19 05/17/22 History multivitamin 1 tab PO QAM 11/20/20 05/17/22 History ropinirole 0.25 mg tablet 0.75 mg PO DAILY 90 Days #270 tab 08/10/21 05/17/22 Rx denosumab 60 mg/mL subcutaneous See Rx Instructions SUBCUT .COMPLEX 11/22/21 05/17/22 History syringe (Prolia) methotrexate sodium 2.5 mg tablet 10 mg PO WK tab 11/22/21 05/17/22 History naproxen sodium 220 mg capsule 220 mg PO HS cap 11/24/21 05/17/22 History diphenoxylate-atropine 2.5 1 tab PO .COMPLEX PRN #240 tab 12/23/21 05/17/22 Rx mg-0.025 mg tablet (Lomotil) duloxetine 60 mg capsule,delayed 60 mg PO DAILY #30 cap 01/15/22 05/17/22 Rx release folic acid 1 mg tablet 2 mg PO DAILY tab 01/15/22 05/17/22 History pantoprazole 40 mg tablet,delayed 40 mg PO BID tab 01/15/22 05/17/22 History release (Protonix) lorazepam 1 mg tablet 1 mg PO BID PRN #60 tab 03/02/22 05/17/22 Rx dibucaine 1 % rectal ointment 1 applic ME TID PRN #56 g 03/03/22 05/17/22 Rx potassium chloride 10 mEq 10 meq PO QAM #90 cap 03/04/22 05/17/22 Rx capsule,extended release magnesium chloride 71.5 mg 71.5 mg PO BID #60 tab 04/27/22 05/17/22 Rx (magnesium chloride) tablet,delayed release (Slow-Mag) promethazine 25 mg tablet 25 mg PO Q6H PRN #30 tab 04/27/22 05/17/22 Rx Patient History Medical History Allergic rhinitis Anxiety Arthritis Asthma well controlled per pt Chronic obstructive pulmonary disease well controlled per pt > no inh CREST syndrome + raynaud's symptoms, follows with Dr. Bradly Ahuja ([place]) Degenerative disc disease Depression Endometriosis GERD (gastroesophageal reflux disease) Hypertension Lumbar spinal stenosis Restless leg syndrome Rheumatoid arthritis Scleroderma Scoliosis Surgical History History of colonoscopy S/P correction of deviated nasal septum S/P tonsillectomy S/P total abdominal hysterectomy and bilateral salpingo-oophorectomy Family History Mother Dementia Osteoporosis Sister Hypertension Father Myocardial infarction Diet age 50 secondary to myocardial infarction Other Medical history non-contributory Denies family history of Ovarian cancer Prostate cancer Breast cancer Colorectal cancer Social History Smoking Status: Current every day smoker Age Started Using Tobacco: 19; packs per day: 0.5; Cigarettes Per Day: 5-6; Second Hand Exposure: No; Hx Alcohol Use: No Hx Substance Use: No Preferred Language: Amharic Communication Ability: Effective Visual Impairment: No Limitations Hearing Ability: Use of Hearing Aid Mannequin Mold Maker Required: No Beliefs That Will Affect Care: None marital status: Current Living Situation: Spouse current occupational status: employed current occupation: Working for [employer] Feels Safe at Home: Yes Assistive Devices: Cane, Glasses and Hearing Aid - Bilateral Review of Systems Review of Systems: Unobtainable due to cognitive status Results & Data ([facility]) Vital Signs (Past 12 Hours) Vital Signs Temp Pulse Pulse Resp BP Pulse Ox 05/18/22 08:50 34.9 C L 05/18/22 07:59 95 H 20 101/73 92 05/18/22 07:12 94 H Laboratory Results Laboratory Results - last 24 hr 05/17/22 05/17/22 05/17/22 15:59 15:59 16:30 WBC RBC Hgb Hct MCV MCH MCHC RDW Std Deviation RDW Coeff of Chary Plt Count MPV Immature Gran % (Auto) Neut % (Auto) Lymph % (Auto) Noble % (Auto) Eos % (Auto) Baso % (Auto) Neut # (Auto) Lymph # (Auto) Noble # (Auto) Eos # (Auto) Baso # (Auto) Immature Gran # (Auto) Toxic Granulation Dohle Bodies Echinocytes ABG pH ABG pCO2 ABG pO2 ABG HCO3 ABG O2 Saturation ABG Base Excess Bradly Test Oxygen Given Sodium 133 L Potassium 6.6 H* Chloride 103 Carbon Dioxide 14 L Anion Gap 16 H BUN 49 H Creatinine 2.13 H Est Cr Clr Drug Dosing Est GFR ( Amer) 27.1 Est GFR (Non-Af Amer) 23.4 BUN/Creatinine Ratio 23.0 H Glucose 169 H POC Glucose Calcium 10.2 H Magnesium 2.5 H Total Bilirubin 0.6 AST 50 H ALT 65 H Alkaline Phosphatase 136 H Troponin I High Sens 30.0 H Total Protein 7.3 Albumin 4.2 Globulin 3.1 Albumin/Globulin Ratio 1.4 Lipase 12 Urine Color Urine Appearance Urine pH Ur Specific [place] Urine Protein Urine Glucose (UA) Urine Ketones Urine Blood Urine Nitrite Urine Bilirubin Urine Urobilinogen Ur Leukocyte Esterase Hepatitis C Ab (EIA) Pending Hep C Ab Signal/Cutoff Pending SARS-CoV-2, RNA, NAAT NEGATIVE 05/17/22 05/17/22 05/17/22 18:45 18:55 20:39 WBC RBC Hgb Hct MCV MCH MCHC RDW Std Deviation RDW Coeff of Chary Plt Count MPV Immature Gran % (Auto) Neut % (Auto) Lymph % (Auto) Noble % (Auto) Eos % (Auto) Baso % (Auto) Neut # (Auto) Lymph # (Auto) Noble # (Auto) Eos # (Auto) Baso # (Auto) Immature Gran # (Auto) Toxic Granulation Dohle Bodies Echinocytes ABG pH ABG pCO2 ABG pO2 ABG HCO3 ABG O2 Saturation ABG Base Excess Bradly Test Oxygen Given Sodium 136 Potassium 5.1 D Chloride 111 H Carbon Dioxide 11 L Anion Gap 14 H BUN 44 H Creatinine 2.02 H Est Cr Clr Drug Dosing Not Reportable Est GFR ( Amer) 28.9 Est GFR (Non-Af Amer) 24.9 BUN/Creatinine Ratio 21.8 H Glucose 63 L POC Glucose 69 L* Calcium 10.1 Magnesium Total Bilirubin AST ALT Alkaline Phosphatase Troponin I High Sens 29.3 H Total Protein Albumin Globulin Albumin/Globulin Ratio Lipase Urine Color Yellow Urine Appearance Clear Urine pH 5.0 Ur Specific [place] 1.013 Urine Protein Negative Urine Glucose (UA) Negative Urine Ketones Negative Urine Blood Negative Urine Nitrite Negative Urine Bilirubin Negative Urine Urobilinogen Negative Ur Leukocyte Esterase Negative Hepatitis C Ab (EIA) Hep C Ab Signal/Cutoff SARS-CoV-2, RNA, NAAT 05/17/22 05/18/22 05/18/22 21:25 00:14 01:45 WBC RBC Hgb Hct MCV MCH MCHC RDW Std Deviation RDW Coeff of Chary Plt Count MPV Immature Gran % (Auto) Neut % (Auto) Lymph % (Auto) Noble % (Auto) Eos % (Auto) Baso % (Auto) Neut # (Auto) Lymph # (Auto) Noble # (Auto) Eos # (Auto) Baso # (Auto) Immature Gran # (Auto) Toxic Granulation Dohle Bodies Echinocytes ABG pH ABG pCO2 ABG pO2 ABG HCO3 ABG O2 Saturation ABG Base Excess Bradly Test Oxygen Given Sodium Potassium Chloride Carbon Dioxide Anion Gap BUN Creatinine Est Cr Clr Drug Dosing Est GFR ( Amer) Est GFR (Non-Af Amer) BUN/Creatinine Ratio Glucose POC Glucose 430 H* 122 H Calcium Magnesium Total Bilirubin AST ALT Alkaline Phosphatase Troponin I High Sens 39.0 H Total Protein Albumin Globulin Albumin/Globulin Ratio Lipase Urine Color Urine Appearance Urine pH Ur Specific [place] Urine Protein Urine Glucose (UA) Urine Ketones Urine Blood Urine Nitrite Urine Bilirubin Urine Urobilinogen Ur Leukocyte Esterase Hepatitis C Ab (EIA) Hep C Ab Signal/Cutoff SARS-CoV-2, RNA, NAAT 05/18/22 05/18/22 05/18/22 07:21 07:21 07:31 WBC 7.61 D RBC 4.68 Hgb 14.4 Hct 41.9 MCV 89.5 MCH 30.8 MCHC 34.4 RDW Std Deviation 49.4 H RDW Coeff of Chary 15.3 H Plt Count 331 MPV 10.6 H Immature Gran % (Auto) 0.1 Neut % (Auto) 91.1 Lymph % (Auto) 5.8 Noble % (Auto) 2.9 Eos % (Auto) 0.0 Baso % (Auto) 0.1 Neut # (Auto) 6.93 H Lymph # (Auto) 0.44 L Noble # (Auto) 0.22 Eos # (Auto) 0.00 Baso # (Auto) 0.01 Immature Gran # (Auto) 0.01 Toxic Granulation 1+ Dohle Bodies 1+ Echinocytes 1+ ABG pH ABG pCO2 ABG pO2 ABG HCO3 ABG O2 Saturation ABG Base Excess Bradly Test Oxygen Given Sodium 136 Potassium 5.8 H Chloride 109 H Carbon Dioxide 13 L Anion Gap 14 H BUN 59 H Creatinine 2.17 H Est Cr Clr Drug Dosing 15.8 Est GFR ( Amer) 26.5 Est GFR (Non-Af Amer) 22.8 BUN/Creatinine Ratio 27.2 H Glucose 99 POC Glucose 72 Calcium 10.3 H Magnesium 3.0 H Total Bilirubin 0.5 AST 58 H ALT 67 H Alkaline Phosphatase 111 H Troponin I High Sens Total Protein 6.2 Albumin 3.6 Globulin 2.6 Albumin/Globulin Ratio 1.4 Lipase Urine Color Urine Appearance Urine pH Ur Specific [place] Urine Protein Urine Glucose (UA) Urine Ketones Urine Blood Urine Nitrite Urine Bilirubin Urine Urobilinogen Ur Leukocyte Esterase Hepatitis C Ab (EIA) Hep C Ab Signal/Cutoff SARS-CoV-2, RNA, NAAT 05/18/22 09:07 WBC RBC Hgb Hct MCV MCH MCHC RDW Std Deviation RDW Coeff of Chary Plt Count MPV Immature Gran % (Auto) Neut % (Auto) Lymph % (Auto) Noble % (Auto) Eos % (Auto) Baso % (Auto) Neut # (Auto) Lymph # (Auto) Noble # (Auto) Eos # (Auto) Baso # (Auto) Immature Gran # (Auto) Toxic Granulation Dohle Bodies Echinocytes ABG pH 7.25 L ABG pCO2 20 L ABG pO2 79 L ABG HCO3 9 L ABG O2 Saturation 97.1 H ABG Base Excess -16.3 L Bradly Test Pos Oxygen Given ROOM AIR Sodium Potassium Chloride Carbon Dioxide Anion Gap BUN Creatinine Est Cr Clr Drug Dosing Est GFR ( Amer) Est GFR (Non-Af Amer) BUN/Creatinine Ratio Glucose POC Glucose Calcium Magnesium Total Bilirubin AST ALT Alkaline Phosphatase Troponin I High Sens Total Protein Albumin Globulin Albumin/Globulin Ratio Lipase Urine Color Urine Appearance Urine pH Ur Specific [place] Urine Protein Urine Glucose (UA) Urine Ketones Urine Blood Urine Nitrite Urine Bilirubin Urine Urobilinogen Ur Leukocyte Esterase Hepatitis C Ab (EIA) Hep C Ab Signal/Cutoff SARS-CoV-2, RNA, NAAT PG Care Time/CCT Total # of Minutes Spent Total Time Spent with Patient: Total time spent is greater than 50% in coordination of care (as documented) at patient's floor/unit and/or counseling patient: Coding Level of Care Code None Diagnoses JEFFERY (acute kidney injury) N17.9
--- NOTE | 2022-05-18 21:22 | Electrocardiogram Report ---
Test Reason : Blood Pressure : / mmHG Vent. Rate : 083 BPM Atrial Rate : 083 BPM P-R Int : 138 ms QRS Dur : 128 ms QT Int : 406 ms P-R-T Axes : 000 076 097 degrees QTc Int : 477 ms Normal sinus rhythm Left bundle branch block Abnormal ECG When compared with ECG of 03-OCT-2021 15:01, Left bundle branch block is now Present Confirmed by Cheng Barber ([id number]) on 05/18/2022 9:22:42 PM Referred By: REFERRED SELF Confirmed By:Cheng Barber
--- NOTE | 2022-05-18 21:25 | Electrocardiogram Report ---
Test Reason : Blood Pressure : / mmHG Vent. Rate : 079 BPM Atrial Rate : 079 BPM P-R Int : 150 ms QRS Dur : 094 ms QT Int : 372 ms P-R-T Axes : 097 076 109 degrees QTc Int : 426 ms Poor data quality, interpretation may be adversely affected Normal sinus rhythm Septal infarct , age undetermined Nonspecific T wave abnormality Abnormal ECG When compared with ECG of 17-MAY-2022 15:42, Left bundle branch block is no longer Present Confirmed by Cheng Barber ([id number]) on 05/18/2022 9:24:30 PM Referred By: REFERRED SELF Confirmed By:Cheng Barber
--- NOTE | 2022-05-19 06:25 | Electrocardiogram Report ---
Test Reason : Blood Pressure : / mmHG Vent. Rate : 098 BPM Atrial Rate : 098 BPM P-R Int : 140 ms QRS Dur : 120 ms QT Int : 374 ms P-R-T Axes : 087 -60 090 degrees QTc Int : 477 ms Normal sinus rhythm Possible Left atrial enlargement Left axis deviation Left ventricular hypertrophy with QRS widening Anterior infarct (cited on or before 17-MAY-2022) Abnormal ECG When compared with ECG of 17-MAY-2022 16:44, QRS duration has increased Confirmed by Cheng Barber ([id number]) on 05/19/2022 6:25:28 AM Referred By: REFERRED SELF Confirmed By:Cheng Barber
--- NOTE | 2022-05-19 08:16 | Discharge Summary ---
Date of Service May 18, 2022 Admission HPI Per Admitting Provider This patient is a 67-year-old female with a history of scleroderma, GERD, RLS, HTN, chronic diarrhea and chronic partial small bowel obstruction of unknown origin, lumbar spinal stenosis, who presents to the ER with feelings of shakiness and weakness which is how she feels when she has been dehydrated in the past with hypomagnesemia and hypokalemia. She was found to have significant hyperkalemia in the ER with a potassium of 6.6, as well as an acute kidney injury with creatinine 2.1 up from baseline of 1.2 two months ago. Her serum bicarbonate was also low at 14 and she had an anion gap of 16. Her AST, ALT, alkaline phosphatase were also mildly elevated but total bilirubin normal. Troponin was also mildly elevated at 30. She was treated with IV calcium chloride, insulin and D50, and albuterol. She was also given a dose of cefoxitin potentially for presumptive GI source of infection because her WBC count was elevated at 18. She denies any fevers or chills, no headaches or lightheadedness, no chest pains or shortness of breath, no abdominal pains. Had 1 episode of nausea and vomiting last night but none since then is feeling hungry. Her initial EKG showed a new left bundle branch block, but a repeat EKG after treatment for hyperkalemia showed absence of LBBB. She will be admitted for hyperkalemia and acute kidney injury. Principal Diagnosis Acute kindey failure/ metabolic acidosis Discharge Exam Constitutional + ill appearing (extremely cachetic, muscle wasting) Eyes PERRL, conjunctivae normal, anicteric sclerae ENMT external ear and nose normal, oropharynx normal Respiratory normal respiratory effort, lungs clear to auscultation Cardiovascular RRR, no murmur, no edema Gastrointestinal (Abdomen) Inspection/Auscultation: abdomen normal to inspection and normal bowel sounds Percussion/Palpation: abdomen soft; abdomen nontender, no guarding and abdomen not rigid Psychiatric A+Ox3, euthymic affect (intemrittently confused but able to be reoriented) Discharge Data Allergies Allergy/AdvReac Type Severity Reaction Status Date / Time gabapentin Allergy Intermediate Feet Verified 05/17/22 17:43 swelling (with higher doses) grass pollen Allergy Intermediate Hay fever Verified 05/17/22 17:43 mold Allergy Intermediate Hay fever Verified 05/17/22 17:43 spironolactone Allergy Intermediate Feet Verified 05/17/22 17:43 swelling Penicillins AdvReac Intermediate Yeast Verified 05/17/22 17:43 infection Consultations 05/17/22 18:09 ED Decision to Admit Stat 05/18/22 08:45 Consult Nephrology Routine 05/18/22 10:09 Consult Gastroenterology Routine Ordered Studies 05/17/22 16:23 CT abd pelvis wo con Stat Hospital Course (1) Failure to thrive: Assumed care of patient at 7:45. Was called to bedside at 8:00 as patient was confused and this was not signed out to nurse at report. Went to bedside and patient was confused but able to be reoriented and had normal vitals. Patient was also found to be extremely cachetic, stating she feels better and wants to be discharged. She understood she was in the hospital and explains that she has lost over 60 pounds weight over the course of the year to 18 month period. Patient reports she has had poor oral intake and diarrhea. She states the diarrhea has been the main culprit of her weight loss. She states this occurred after having back surgery. She states she has been following up with [facility]. Due to her chronic nature of this illness where patient now only has a BMI of 16, an extensive chart review was done. Reviewed medical chart. Reviewed labs, leukocytosis on admission however she is now having normal WBC on 05/18/22 which is somewhat reassuring. Patient has a low bicarb of 9 on BMP. ABG is ordered. Nephrology consult was placed. In regards to her workup: Appears to have had endoscopies upper and lower GI. Polyps were found in the colon and removed. She has had also partial small bowel obstruction noted and plan was to see General Surgery for possible exploratory lap, as this could be causing perhaps overflow diarrhea. However, this has not been confirmed. Patient is also on SNRI for depression which may treat a psychogenic cause of diarrhea. Patient had a carcinoid syndrome workup ordered by Dr. Calle but results were not noted in chart. Called Dr. Calle, and she stated patient refused carcinoid testing. Called PCP, to discuss case. Appears next step was to have exploratory lap to check for possible adhesions or masses that could be causing a partial Small bowel obstruction. Noted patient has had CT scan of chest and abd/pelvis with contrast and no noted masses were found. Plan was to call to explain how sick his is, and that given the chronicity of her illness, is which now she is malnourished with a BMI of 16, in acute kidney failure with electrolyte abnormalities and now in possible metabolic acidosis. Most positive outlook, she would have a long and difficult pathway to recovery. ABG results returned and as this occurred Nephrology was examining patient and she was found to be unresponsive. Patient was bradycardic but still breathing. Bicarb was ordered. As this was being given, patient ceased to breath. Patient is a do not resuscitate. Tried to call but no answer as Dr. Griffith continued to administer a second ampule of bicarb. Walk back into room, and patient did not improve. Patient was pronounced on 10:24 ON 05/18/22 After she passed, fecal matter began to come out of oral cavity and this was orally suctioned. Informed her Chris of the passing of his . Also informed PCP. He was undecided about autopsy, but later informed nursing that he did not want it completed. (2) Acute hyperkalemia: Presents with potassium of 6.6 in the setting of acute kidney injury from dehydration from chronic diarrhea and exogenous potassium use Treated with calcium chloride, insulin and D50, albuterol in the ER as well as 2 L of normal saline -Admit to telemetry unit for arrhythmia monitoring -potassium was lower than POC on admission (3) JEFFERY (acute kidney injury): Secondary to dehydration from ongoing diarrhea which is chronic With resultant hyperkalemia and anion gap metabolic acidosis She is making urine (4) Partial obstruction of small intestine: Chronic and unchanged in appearance on CT abdomen/pelvis from previous She is following with [facility] in [place] and recently had a colonoscopy 2 weeks ago with 3 polyps removed which she was told were benign She is also undergoing a work-up for carcinoid with oncology/Dr. Calle and is planning on having a scan for carcinoid in the near future. Later confirmed that workup for carcinoid was refused by patient. [facility] has also recommended laparoscopy for lysis of adhesions-this has not been pursued just yet as per patient and her (5) Diarrhea: As above Continue Lomotil as needed (6) Rheumatoid arthritis: No acute issues Continue home methotrexate and hydroxychloroquine Continue folic acid (7) GERD (gastroesophageal reflux disease): Continue PPI (8) Restless leg syndrome: Continue ropinirole (9) Hypertension: Blood pressures controlled Continue nifedipine which is also likely for her Raynaud's (10) Scleroderma: Follows with rheumatology in [place] Continue home medications (11) Atrial flutter: Has a history of such, currently in sinus rhythm Following telemetry Not on anticoagulation (12) Allergic rhinitis: Continue home antihistamine (13) Anxiety: Continue home lorazepam as needed DVT prophylaxis-Lovenox SQ, SCDs Disposition-admit to PCU DNR/DNI Total Time Total Time Spent Total Time Spent (In Minutes): 120 Greater than 30 minutes of critical time. Discharge Plan Discharge Items Patient Disposition: Other Date/Time: 05/18/22 10:24 Coding Level of Care Code None Diagnoses Acute hyperkalemia E87.5 JEFFERY (acute kidney injury) N17.9 Partial obstruction of small intestine K56.600 Diarrhea R19.7 Diarrhea type: unspecified type Rheumatoid arthritis M06.9 GERD (gastroesophageal reflux disease) K21.9 Restless leg syndrome G25.81 Hypertension I10 Scleroderma M34.9 Atrial flutter I48.92 Atrial flutter type: unspecified Allergic rhinitis J30.9 Anxiety F41.9 Failure to thrive
--- NOTE | 2022-05-19 08:41 | Billing Data ---
Date of Service May 18, 2022 Coding Level of Care Code Critical Care 1st - mins
--- NOTE | 2022-05-19 08:42 | Billing Data ---
Date of Service May 18, 2022 Coding Level of Care Code Critical Care ea addt'l 30 min
--- NOTE | 2022-05-19 08:46 | Death Pronouncement Note ---
Date of Service May 18, 2022 Pronouncement Note Admission Date May 17, 2022 Date and Time of Date of : 05/18/22 Time of : 10:24 Preliminary Cause of (1) Failure to thrive: Additional Comments: Failure to thrive and chronic weight loss leading to muscle wasting, extremely low BMI, acute kidney failure and metabolic acidosis. (2) Acute hyperkalemia: (3) JEFFERY (acute kidney injury): (4) Partial obstruction of small intestine: (5) Diarrhea: Diarrhea type: unspecified type Qualified Code(s): R19.7 - Diarrhea, unspecified (6) Rheumatoid arthritis: (7) GERD (gastroesophageal reflux disease): (8) Restless leg syndrome: (9) Hypertension: (10) Scleroderma: (11) Atrial flutter: Atrial flutter type: unspecified Qualified Code(s): I48.92 - Unspecified atrial flutter (12) Allergic rhinitis: (13) Anxiety: Summary As noted in discharge summary. Additional Data Confirmation of : no pulse, no respirations, no heart sounds and pupils fixed and dilated Pronouncement Performed By: Attending Physician Family: contacted Attending/PCP notified?: Yes Attending physician: William Cote Was code activated?: No (Patient was a do not resuscitate) letter of credit document examiner notified?: Yes Organ bank notified?: Yes Coding Level of Care Code None Diagnoses Failure to thrive Acute hyperkalemia E87.5 JEFFERY (acute kidney injury) N17.9 Partial obstruction of small intestine K56.600 Diarrhea R19.7 Diarrhea type: unspecified type Rheumatoid arthritis M06.9 GERD (gastroesophageal reflux disease) K21.9 Restless leg syndrome G25.81 Hypertension I10 Scleroderma M34.9 Atrial flutter I48.92 Atrial flutter type: unspecified Allergic rhinitis J30.9 Anxiety F41.9
[2022-05-23] MEDS ORDERED: metHOTREXate sodium 2.5 MG TAB PO SCH (09:00)
== END 2022-05-18 18:38 | disposition expired | DRG 683 ==
LOC: ED 15:29 → SUATTDRO 18:51 → 2S 18:51